=== PATIENT | female | born 1960 | race Caucasian/White ===

== ENCOUNTER → 2017-12-29 12:20 | Outpatient (CLI) | payer OTHER, SELFPAY | LOC: PSN 12:21 | PROVIDERS: Family Provider Family Medicine Geriatric Medicine; PCP Family Medicine Geriatric Medicine; Visit Provider Family Medicine Geriatric Medicine | DX: R68.83 Chills (without fever) (principal) | CPT/HCPCS: 87633 ==

== ENCOUNTER → 2018-01-05 11:34 | Outpatient (CLI) | payer OTHER, SELFPAY ==
[2018-01-05 13:45] LABS: AST(SGOT) 20 U/L (15-37); Alanine Aminotransfer ALT/SGPT 21 U/L (13-56); Alkaline Phosphatase 62 U/L (45-117); Anion Gap 9 (5-15); BUN 12 mg/dL (7-18); BUN/Creat Ratio 13.9 RATIO (10-20); Chloride 99 mmol/L (98-107); Creatinine, Serum 0.87 mg/dL (0.55-1.02); EST Glomerular Filtration Rate 72 mL/min (>60); Est Glom Filt Rate - Afr Amer 87 mL/min (>60); Free T3 2.9 pg/mL (2.18-3.98); Globulin 4.2 g/dL (2.2-4.2); Glucose 85 mg/dL (74-106); Magnesium 2.2 mg/dL (1.6-2.6); Potassium 4.3 mmol/L (3.5-5.1); Protein, Total 8.2 g/dL (6.4-8.2); Sodium Level 134 mmol/L (136-145); T4 Free Direct 1.45 ng/dL (0.76-1.46); Thyroid Stim Hormone (TSH) 0.13 uIU/mL (0.358-3.74)
[2018-01-06 09:44] LABS: Vitamin D,25 Hydroxy 68.1 ng/mL (29.95-100.01)
== END ==
PROVIDERS: Family Provider Family Medicine Geriatric Medicine; PCP Family Medicine Geriatric Medicine; Visit Provider Internal Medicine Endocrinology, Diabetes & Metabolism
DX: E89.0 Postprocedural hypothyroidism (principal); E55.9 Vitamin D deficiency, unspecified; E83.42 Hypomagnesemia
CPT/HCPCS: 36415; 80053; 82306; 83735; 84439; 84443; 84481

== ENCOUNTER → 2018-01-17 12:24 | Outpatient (CLI) | payer OTHER, SELFPAY ==
[2018-01-17 13:49] LABS: Anion Gap 5 (5-15); BUN 14 mg/dL (7-18); BUN/Creat Ratio 15.8 RATIO (10-20); Calcium,Total 9.2 mg/dL (8.5-10.1); Chloride 102 mmol/L (98-107); Creatinine, Serum 0.89 mg/dL (0.55-1.02); EST Glomerular Filtration Rate 70 mL/min (>60); Est Glom Filt Rate - Afr Amer 84 mL/min (>60); Glucose 100 mg/dL (74-106); Sodium Level 135 mmol/L (136-145)
== END ==
PROVIDERS: Family Provider Family Medicine Geriatric Medicine; PCP Family Medicine Geriatric Medicine; Visit Provider Internal Medicine Endocrinology, Diabetes & Metabolism
DX: E89.0 Postprocedural hypothyroidism (principal)
CPT/HCPCS: 36415; 80048

== ENCOUNTER → 2018-06-28 16:25 | Outpatient (CLI) | payer OTHER, SELFPAY ==
[2018-06-28 17:05] LABS: Cholesterol 234 mg/dL (200); High Density Lipoprotein 89 mg/dL; Triglycerides 62 mg/dL; Very Low Density Lipoprotein 12 mg/dL (5-40)
[2018-06-28 17:06] LABS: Absolute Lymphocyte Count 1.99 X10^3/ul (0.83-4.51); Basophil# 0.02 X10^3/uL; Basophil% 0.4 % (0-1); Eosinophil# 0.22 X10^3/uL; Eosinophils% 3.9 % (0-5); Hematocrit 38.6 % (37-47); Hemoglobin 12.8 g/dl (12.0-15.0); Lymphocyte # 1.99 X10^3/ul (4.0); Lymphocyte % 35.4 % (19-41); Mean Corp Hgb Conc 33.2 g/gl (32-36); Mean Corpuscular Hgb 30.2 pg (27.0-32.0); Mean Platelet Vol. 9.2 fl (6.2-12.0); Monocyte# 0.38 X10^3/uL; Monocyte% 6.8 % (0-10); Neutrophil % 53.3 % (47-70); Platelet Count 285 K/mm3 (150-450); RBC Distribution Width CV 12.7 % (11.6-14.6); Red Blood Count 4.24 M/mm3 (4.2-5.4); White Blood Count 5.6 K/mm3 (4.4-11.0)
[2018-06-28 17:07] LABS: POSITIVE COUNT NO; POSITIVE DIFFERENTIAL NO; POSITIVE MORPHOLOGY NO
== END ==
PROVIDERS: Family Provider Family Medicine Geriatric Medicine; PCP Family Medicine Geriatric Medicine; Visit Provider Family Medicine Geriatric Medicine
DX: E55.9 Vitamin D deficiency, unspecified (principal); R53.83 Other fatigue
CPT/HCPCS: 36415; 80061; 85025

== ENCOUNTER → 2020-06-13 | Outpatient (CLI) | payer OTHER, SELFPAY ==
[2020-06-13 11:54] LABS: Absolute Lymphocyte Count 1.68 X10^3/uL (0.83-4.51); Absolute Neutrophil Count 1.9 X10^3/uL (2.0-7.7); Basophil# 0.03 X10^3/uL; Basophil% 0.7 % (0-1); Eosinophil# 0.32 X10^3/uL; Eosinophils% 7.3 % (0-5); Hematocrit 38.8 % (37-47); Hemoglobin 12.9 g/dL (12.0-15.0); Lymphocyte # 1.68 X10^3/ul (4.0); Lymphocyte % 38.3 % (19-41); Mean Corp Hgb Conc 33.2 g/dL (32-36); Mean Corpuscular Hgb 30.6 pg (27.0-32.0); Mean Corpuscular Volume 92.2 fL (81-99); Mean Platelet Vol. 9.2 fl (6.2-12.0); Monocyte# 0.46 X10^3/uL; Monocyte% 10.5 % (0-10); NRBC Flagged by Analyzer 0 % (0-5); Neutrophil # 1.89 X10^3/uL (2.7-7.7); Platelet Count 319 K/mm3 (150-450); RBC Distribution Width CV 12.6 % (11.6-14.6); RBC Distribution Width SD 42.1 fl (35.1-43.9); Red Blood Count 4.21 M/mm3 (4.2-5.4); White Blood Count 4.4 K/mm3 (4.4-11.0)
[2020-06-13 12:28] LABS: Vitamin D,25 Hydroxy 75.3 ng/mL
[2020-06-13 12:35] LABS: AST(SGOT) 16 U/L (15-37); Alanine Aminotransfer ALT/SGPT 16 U/L (13-56); Alkaline Phosphatase 69 U/L (45-117); Anion Gap 5 (5-15); BUN 9 mg/dL (7-18); BUN/Creat Ratio 10.7 RATIO (10-20); Calcium,Total 9.3 mg/dL (8.5-10.1); Chloride 101 mmol/L (98-107); Creatinine, Serum 0.84 mg/dL (0.55-1.02); EST Glomerular Filtration Rate 74 mL/min (>60); Est Glom Filt Rate - Afr Amer 89 mL/min (>60); Globulin 4.2 g/dL (2.2-4.2); Glucose 99 mg/dL (74-106); Potassium 3.9 mmol/L (3.5-5.1); Protein, Total 8.2 g/dL (6.4-8.2); Sodium Level 134 mmol/L (136-145)
== END | disposition home or self-care (01) ==
LOC: POLAB3 11:22
PROVIDERS: PCP Family Medicine Geriatric Medicine; Visit Provider Family Medicine Geriatric Medicine
DX: E55.9 Vitamin D deficiency, unspecified (principal); R53.83 Other fatigue
CPT/HCPCS: 36415; 80053; 82306; 84443; 85025

== ENCOUNTER → 2020-12-12 09:10 | Outpatient (CLI) | payer OTHER, SELFPAY ==
[2020-12-12 13:05] LABS: Absolute Lymphocyte Count 1.54 X10^3/uL (0.83-4.51); Absolute Neutrophil Count 1.8 X10^3/uL (2.0-7.7); Basophil# 0.03 X10^3/uL; Basophil% 0.7 % (0-1); Eosinophil# 0.28 X10^3/uL; Eosinophils% 6.9 % (0-5); Hematocrit 40.2 % (37-47); Hemoglobin 13.6 g/dL (12.0-15.0); Lymphocyte # 1.54 X10^3/ul (4.0); Lymphocyte % 38.1 % (19-41); Mean Corp Hgb Conc 33.8 g/dL (32-36); Mean Corpuscular Hgb 30.8 pg (27.0-32.0); Mean Corpuscular Volume 91.2 fL (81-99); Mean Platelet Vol. 9.4 fl (6.2-12.0); Monocyte# 0.34 X10^3/uL; Monocyte% 8.4 % (0-10); NRBC Flagged by Analyzer 0 % (0-5); Neutrophil # 1.84 X10^3/uL (2.7-7.7); Neutrophil % 45.7 % (47-70); Platelet Count 338 K/mm3 (150-450); RBC Distribution Width CV 13.3 % (11.6-14.6); Red Blood Count 4.41 M/mm3 (4.2-5.4)
[2020-12-12 13:25] LABS: Vitamin D,25 Hydroxy 68.3 ng/mL
[2020-12-12 13:30] LABS: ALB/GLOB Ratio 0.9 RATIO (0.9-2.4); AST(SGOT) 25 U/L (15-37); Alanine Aminotransfer ALT/SGPT 24 U/L (13-56); Albumin, Serum 3.9 g/dL (3.2-5.0); Alkaline Phosphatase 70 U/L (45-117); Anion Gap 7 (5-15); BUN 13 mg/dL (7-18); Calcium,Total 9.1 mg/dL (8.5-10.1); Chloride 102 mmol/L (98-107); Creatinine, Serum 0.93 mg/dL (0.55-1.02); EST Glomerular Filtration Rate 66 mL/min (>60); Est Glom Filt Rate - Afr Amer 79 mL/min (>60); Free T3 2.2 pg/mL (2.18-3.98); Globulin 4.3 g/dL (2.2-4.2); Glucose 98 mg/dL (74-106); Potassium 3.9 mmol/L (3.5-5.1); Protein, Total 8.2 g/dL (6.4-8.2); Sodium Level 134 mmol/L (136-145); T4 Free Direct 1.27 ng/dL (0.76-1.46); Thyroid Stim Hormone (TSH) 0.96 uIU/mL (0.358-3.74)
== END ==
PROVIDERS: PCP Family Medicine Geriatric Medicine; Visit Provider Family Medicine Geriatric Medicine
DX: E89.0 Postprocedural hypothyroidism (principal); E55.9 Vitamin D deficiency, unspecified; R53.83 Other fatigue
CPT/HCPCS: 36415; 80053; 82306; 84439; 84443; 84481; 85025

== ENCOUNTER → 2021-02-23 13:47 | Outpatient (CLI) | payer OTHER, SELFPAY ==
[2021-02-23 16:06] LABS: ALB/GLOB Ratio 0.9 RATIO (0.9-2.4); AST(SGOT) 19 U/L (15-37); Alanine Aminotransfer ALT/SGPT 19 U/L (13-56); Albumin, Serum 3.6 g/dL (3.2-5.0); Alkaline Phosphatase 67 U/L (45-117); Anion Gap 7 (5-15); BUN 11 mg/dL (7-18); BUN/Creat Ratio 12.6 RATIO (10-20); Calcium,Total 8.5 mg/dL (8.5-10.1); Chloride 99 mmol/L (98-107); Creatinine, Serum 0.87 mg/dL (0.55-1.02); EST Glomerular Filtration Rate 70 mL/min (>60); Est Glom Filt Rate - Afr Amer 85 mL/min (>60); Glucose 77 mg/dL (74-106); Potassium 3.9 mmol/L (3.5-5.1); Protein, Total 7.6 g/dL (6.4-8.2); Sodium Level 134 mmol/L (136-145); Thyroid Stim Hormone (TSH) 0.94 uIU/mL (0.358-3.74)
== END ==
PROVIDERS: PCP Family Medicine Geriatric Medicine; Referring Provider Internal Medicine Endocrinology, Diabetes & Metabolism; Visit Provider Internal Medicine Endocrinology, Diabetes & Metabolism
DX: E89.0 Postprocedural hypothyroidism (principal)
CPT/HCPCS: 36415; 80053; 84443

== ENCOUNTER → 2021-06-22 10:54 | Outpatient (CLI) | payer OTHER, SELFPAY ==
[2021-06-22 12:48] LABS: T3 Total - Triiodothyronine 2.09 ng/mL (0.6-1.81); Vitamin D,25 Hydroxy 70.1 ng/mL
[2021-06-22 12:55] LABS: Absolute Lymphocyte Count 1.37 X10^3/uL (0.83-4.51); Basophil# 0.04 X10^3/uL; Eosinophil# 0.31 X10^3/uL; Eosinophils% 7.4 % (0-5); Hematocrit 39.2 % (37-47); Hemoglobin 12.5 g/dL (12.0-15.0); Lymphocyte # 1.37 X10^3/ul (0.83-4.51); Lymphocyte % 32.5 % (19-41); Mean Corp Hgb Conc 31.9 g/dL (32-36); Mean Corpuscular Hgb 29.6 pg (27.0-32.0); Mean Corpuscular Volume 92.7 fL (81-99); Mean Platelet Vol. 9.5 fl (6.2-12.0); Monocyte# 0.45 X10^3/uL; Monocyte% 10.7 % (0-10); NRBC Flagged by Analyzer 0 % (0-5); Neutrophil # 2.03 X10^3/uL (2.7-7.7); Neutrophil % 48.2 % (47-70); Platelet Count 319 K/mm3 (150-450); RBC Distribution Width CV 13.6 % (11.6-14.6); RBC Distribution Width SD 46.5 fl (35.1-43.9); Red Blood Count 4.23 M/mm3 (4.2-5.4); White Blood Count 4.2 K/mm3 (4.4-11.0)
[2021-06-22 13:01] LABS: ALB/GLOB Ratio 0.8 RATIO (0.9-2.4); AST(SGOT) 22 U/L (15-37); Alanine Aminotransfer ALT/SGPT 27 U/L (13-56); Albumin, Serum 3.6 g/dL (3.2-5.0); Alkaline Phosphatase 72 U/L (45-117); Anion Gap 2 (5-15); BUN 15 mg/dL (7-18); BUN/Creat Ratio 18.9 RATIO (10-20); Chloride 106 mmol/L (98-107); Creatinine, Serum 0.79 mg/dL (0.55-1.02); EST Glomerular Filtration Rate 78 mL/min (>60); Est Glom Filt Rate - Afr Amer 95 mL/min (>60); Globulin 4.4 g/dL (2.2-4.2); Glucose 88 mg/dL (74-106); Potassium 4.4 mmol/L (3.5-5.1); Sodium Level 138 mmol/L (136-145); T4 Total, Thyroxin 7.4 ug/dL (4.8-13.9); Thyroid Stim Hormone (TSH) 1.08 uIU/mL (0.358-3.74)
== END ==
PROVIDERS: PCP Family Medicine Geriatric Medicine; Visit Provider Family Medicine Geriatric Medicine
DX: E55.9 Vitamin D deficiency, unspecified (principal); R53.83 Other fatigue
CPT/HCPCS: 36415; 80053; 82306; 84436; 84443; 84480; 85025

== ENCOUNTER 2021-12-22 13:16 | Outpatient (CLI) | payer OTHER, SELFPAY ==
[2021-12-22 16:10] LABS: Absolute Lymphocyte Count 1.71 X10^3/uL (0.83-4.51); Absolute Neutrophil Count 1.9 X10^3/uL (2.0-7.7); Basophil# 0.03 X10^3/uL; Basophil% 0.7 % (0-1); Eosinophil# 0.18 X10^3/uL; Eosinophils% 4.2 % (0-5); Hematocrit 38.9 % (37-47); Hemoglobin 12.8 g/dL (12.0-15.0); Lymphocyte # 1.71 X10^3/ul (0.83-4.51); Mean Corp Hgb Conc 32.9 g/dL (32-36); Mean Corpuscular Volume 91.1 fL (81-99); Mean Platelet Vol. 9.6 fl (6.2-12.0); Monocyte# 0.49 X10^3/uL; Monocyte% 11.5 % (0-10); NRBC Flagged by Analyzer 0 % (0-5); Neutrophil # 1.85 X10^3/uL (2.7-7.7); Neutrophil % 43.4 % (47-70); Platelet Count 339 K/mm3 (150-450); Red Blood Count 4.27 M/mm3 (4.2-5.4); White Blood Count 4.3 K/mm3 (4.4-11.0)
[2021-12-22 16:37] LABS: ALB/GLOB Ratio 0.8 RATIO (0.9-2.4); AST(SGOT) 20 U/L (15-37); Alanine Aminotransfer ALT/SGPT 23 U/L (13-56); Albumin, Serum 3.7 g/dL (3.2-5.0); Alkaline Phosphatase 85 U/L (45-117); Anion Gap 7 (5-15); BUN 8 mg/dL (7-18); BUN/Creat Ratio 9.2 RATIO (10-20); Calcium,Total 9.3 mg/dL (8.5-10.1); Chloride 104 mmol/L (98-107); Creatinine, Serum 0.87 mg/dL (0.55-1.02); EST Glomerular Filtration Rate 70 mL/min (>60); Est Glom Filt Rate - Afr Amer 85 mL/min (>60); Globulin 4.4 g/dL (2.2-4.2); Glucose 86 mg/dL (74-106); Potassium 3.6 mmol/L (3.5-5.1); Protein, Total 8.1 g/dL (6.4-8.2); Sodium Level 137 mmol/L (136-145); Thyroid Stim Hormone (TSH) 1.27 uIU/mL (0.358-3.74)
[2021-12-22 16:44] LABS: Vitamin D,25 Hydroxy 54.2 ng/mL
== END 2021-12-22 23:59 | disposition home or self-care (01) ==
LOC: POLAB3 13:18
PROVIDERS: PCP Family Medicine Geriatric Medicine; Visit Provider Family Medicine Geriatric Medicine
DX: R53.83 Other fatigue (principal); E55.9 Vitamin D deficiency, unspecified
CPT/HCPCS: 36415; 80053; 82306; 84443; 85025

== ENCOUNTER 2022-01-01 10:10 | Outpatient (CLI) | payer OTHER, SELFPAY ==
[2022-01-01 11:21] LABS: ALB/GLOB Ratio 0.8 RATIO (0.9-2.4); AST(SGOT) 17 U/L (15-37); Alanine Aminotransfer ALT/SGPT 18 U/L (13-56); Albumin, Serum 3.5 g/dL (3.2-5.0); Alkaline Phosphatase 79 U/L (45-117); Anion Gap 5 (5-15); BUN 13 mg/dL (7-18); BUN/Creat Ratio 15.2 RATIO (10-20); Chloride 108 mmol/L (98-107); Creatinine, Serum 0.86 mg/dL (0.55-1.02); EST Glomerular Filtration Rate 72 mL/min (>60); Est Glom Filt Rate - Afr Amer 87 mL/min (>60); Free T3 2.3 pg/mL (2.18-3.98); Globulin 4.4 g/dL (2.2-4.2); Glucose 104 mg/dL (74-106); Potassium 3.9 mmol/L (3.5-5.1); Protein, Total 7.9 g/dL (6.4-8.2); Sodium Level 139 mmol/L (136-145); T4 Free Direct 0.74 ng/dL (0.76-1.46); Thyroid Stim Hormone (TSH) 1.49 uIU/mL (0.358-3.74)
[2022-01-04 12:14] LABS: DHEA Sulfate 45.8 ug/dL (29.4-220.5)
== END 2022-01-01 23:59 | disposition home or self-care (01) ==
LOC: LAB 10:14
PROVIDERS: PCP Family Medicine Geriatric Medicine; Visit Provider Internal Medicine Endocrinology, Diabetes & Metabolism
DX: E89.0 Postprocedural hypothyroidism (principal)
CPT/HCPCS: 36415; 80053; 82627; 84439; 84443; 84481; 82626

== ENCOUNTER → 2022-01-19 15:31 | Outpatient (CLI) | payer OTHER, SELFPAY ==
[2022-01-19 17:05] LABS: ALB/GLOB Ratio 0.9 RATIO (0.9-2.4); AST(SGOT) 20 U/L (15-37); Alanine Aminotransfer ALT/SGPT 22 U/L (13-56); Albumin, Serum 3.8 g/dL (3.2-5.0); Alkaline Phosphatase 80 U/L (45-117); Anion Gap 8 (5-15); BUN 7 mg/dL (7-18); BUN/Creat Ratio 7.8 RATIO (10-20); Calcium,Total 9.3 mg/dL (8.5-10.1); Chloride 103 mmol/L (98-107); Creatinine, Serum 0.89 mg/dL (0.55-1.02); EST Glomerular Filtration Rate 68 mL/min (>60); Est Glom Filt Rate - Afr Amer 83 mL/min (>60); Globulin 4.4 g/dL (2.2-4.2); Glucose 86 mg/dL (74-106); Potassium 3.5 mmol/L (3.5-5.1); Protein, Total 8.2 g/dL (6.4-8.2); Sodium Level 137 mmol/L (136-145)
[2022-01-22 14:10] LABS: PROEL- A/G Ratio 1.1 (0.7-1.7); PROEL- Albumin 3.9 g/dL (2.9-4.4); PROEL- Alpha-1 Globulin 0.2 g/dL (0.0-0.4); PROEL- Alpha-2 Globulin 0.7 g/dL (0.4-1.0); PROEL- Beta Globulin 1.2 g/dL (0.7-1.3); PROEL- Gamma Globulin 1.3 g/dL (0.4-1.8); PROEL- Globulin, Total 3.5 g/dL (2.2-3.9); PROEL- TOTAL PROTEIN 7.4 g/dL (6.0-8.5); PROELU- Albumin, Urine 32.9 % (.); PROELU- Alpha-1-Globulin,Ur 1.4 % (.); PROELU- Alpha-2-Globulin,Ur 14.8 % (.); PROELU- Gamma Globulin, Ur 15.9 % (.)
[2022-01-22 15:45] LABS: Total Protein, Ur < 4.0 mg/dL (Not Estab.)
== END ==
PROVIDERS: PCP Family Medicine Geriatric Medicine
DX: E89.0 Postprocedural hypothyroidism (principal); M85.89 Other specified disorders of bone density and structure, multiple sites
CPT/HCPCS: 36415; 80053; 84165; 84166

== ENCOUNTER → 2022-05-19 | Outpatient (CLI) | payer OTHER, SELFPAY ==
[2022-05-19 10:56] LABS: Vitamin D,25 Hydroxy 72.8 ng/mL
[2022-05-19 11:12] LABS: ALB/GLOB Ratio 0.8 RATIO (0.9-2.4); AST(SGOT) 20 U/L (15-37); Alanine Aminotransfer ALT/SGPT 20 U/L (13-56); Albumin, Serum 3.6 g/dL (3.2-5.0); Alkaline Phosphatase 82 U/L (45-117); Anion Gap 7 (5-15); BUN 12 mg/dL (7-18); BUN/Creat Ratio 15.7 RATIO (10-20); Calcium,Total 9.3 mg/dL (8.5-10.1); Chloride 103 mmol/L (98-107); Creatinine, Serum 0.77 mg/dL (0.55-1.02); EST Glomerular Filtration Rate 81 mL/min (>60); Est Glom Filt Rate - Afr Amer 98 mL/min (>60); Free T3 2.8 pg/mL (2.18-3.98); Globulin 4.4 g/dL (2.2-4.2); Glucose 108 mg/dL (74-106); Sodium Level 137 mmol/L (136-145); T4 Free Direct 0.83 ng/dL (0.76-1.46); Thyroid Stim Hormone (TSH) 0.06 uIU/mL (0.358-3.74)
== END | disposition home or self-care (01) ==
LOC: LAB 09:42
PROVIDERS: PCP Family Medicine Geriatric Medicine; Referring Provider Internal Medicine Endocrinology, Diabetes & Metabolism; Visit Provider Internal Medicine Endocrinology, Diabetes & Metabolism
DX: E55.9 Vitamin D deficiency, unspecified (principal); E89.0 Postprocedural hypothyroidism
CPT/HCPCS: 36415; 80053; 82306; 84439; 84443; 84481

== ENCOUNTER → 2022-06-29 | Outpatient (CLI) | payer OTHER, SELFPAY ==
[2022-06-29 16:33] LABS: Absolute Lymphocyte Count 1.74 X10^3/uL (0.83-4.51); Absolute Neutrophil Count 2.9 X10^3/uL (2.0-7.7); Basophil# 0.02 X10^3/uL; Basophil% 0.4 % (0-1); Eosinophil# 0.24 X10^3/uL; Eosinophils% 4.4 % (0-5); Hematocrit 39.8 % (37-47); Hemoglobin 12.7 g/dL (12.0-15.0); Lymphocyte # 1.74 X10^3/ul (0.83-4.51); Lymphocyte % 32.2 % (19-41); Mean Corp Hgb Conc 31.9 g/dL (32-36); Mean Corpuscular Hgb 29.5 pg (27.0-32.0); Mean Corpuscular Volume 92.3 fL (81-99); Mean Platelet Vol. 9.9 fl (6.2-12.0); Monocyte# 0.51 X10^3/uL; Monocyte% 9.4 % (0-10); NRBC Flagged by Analyzer 0 % (0-5); Neutrophil # 2.88 X10^3/uL (2.7-7.7); Neutrophil % 53.4 % (47-70); Platelet Count 362 K/mm3 (150-450); RBC Distribution Width SD 47.9 fl (35.1-43.9); Red Blood Count 4.31 M/mm3 (4.2-5.4); White Blood Count 5.4 K/mm3 (4.4-11.0)
[2022-06-29 17:03] LABS: ALB/GLOB Ratio 0.9 RATIO (0.9-2.4); AST(SGOT) 22 U/L (15-37); Alanine Aminotransfer ALT/SGPT 25 U/L (13-56); Albumin, Serum 3.7 g/dL (3.2-5.0); Alkaline Phosphatase 82 U/L (45-117); Anion Gap 8 (5-15); BUN 8 mg/dL (7-18); Calcium,Total 8.9 mg/dL (8.5-10.1); Chloride 102 mmol/L (98-107); Creatinine, Serum 0.89 mg/dL (0.55-1.02); EST Glomerular Filtration Rate 69 mL/min (>60); Est Glom Filt Rate - Afr Amer 83 mL/min (>60); Globulin 4.3 g/dL (2.2-4.2); Glucose 94 mg/dL (74-106); Sodium Level 135 mmol/L (136-145)
== END | disposition home or self-care (01) ==
LOC: POLAB3 12:47
PROVIDERS: PCP Family Medicine Geriatric Medicine; Visit Provider Family Medicine Geriatric Medicine
DX: R53.83 Other fatigue (principal); E55.9 Vitamin D deficiency, unspecified
CPT/HCPCS: 36415; 80053; 82306; 84443; 85025

== ENCOUNTER → 2022-08-06 | Outpatient (CLI) | payer OTHER, SELFPAY ==
[2022-08-06 12:09] LABS: Vitamin B12 358 pg/mL (211-911)
[2022-08-06 12:17] LABS: Free T3 2.5 pg/mL (2.18-3.98); T4 Free Direct 0.72 ng/dL (0.76-1.46)
== END | disposition home or self-care (01) ==
LOC: LAB 10:52
PROVIDERS: Physician Assistant; PCP Family Medicine Geriatric Medicine; Visit Provider Internal Medicine Endocrinology, Diabetes & Metabolism
DX: E89.0 Postprocedural hypothyroidism (principal); D51.3 Other dietary vitamin B12 deficiency anemia
CPT/HCPCS: 36415; 82607; 84439; 84443; 84481

== ENCOUNTER → 2022-11-26 | Outpatient (CLI) | payer OTHER, SELFPAY ==
[2022-11-26 11:41] LABS: ALB/GLOB Ratio 0.8 RATIO (0.9-2.4); AST(SGOT) 20 U/L (15-37); Alanine Aminotransfer ALT/SGPT 21 U/L (13-56); Albumin, Serum 3.5 g/dL (3.2-5.0); Alkaline Phosphatase 86 U/L (45-117); Anion Gap 7 (5-15); BUN 17 mg/dL (7-18); BUN/Creat Ratio 20.3 RATIO (10-20); Chloride 106 mmol/L (98-107); Creatinine, Serum 0.84 mg/dL (0.55-1.02); EST Glomerular Filtration Rate 73 mL/min (>60); Est Glom Filt Rate - Afr Amer 89 mL/min (>60); Free T3 2.6 pg/mL (2.18-3.98); Globulin 4.4 g/dL (2.2-4.2); Glucose 100 mg/dL (74-106); Magnesium 2.4 mg/dL (1.6-2.6); Potassium 4.2 mmol/L (3.5-5.1); Protein, Total 7.9 g/dL (6.4-8.2); Sodium Level 139 mmol/L (136-145); T4 Free Direct 0.72 ng/dL (0.76-1.46); Thyroid Stim Hormone (TSH) 0.16 uIU/mL (0.358-3.74)
== END | disposition home or self-care (01) ==
LOC: LAB 09:21
PROVIDERS: PCP Family Medicine Geriatric Medicine; Referring Provider Internal Medicine Endocrinology, Diabetes & Metabolism; Visit Provider Internal Medicine Endocrinology, Diabetes & Metabolism
DX: E89.0 Postprocedural hypothyroidism (principal); E83.42 Hypomagnesemia
CPT/HCPCS: 36415; 80053; 83735; 84439; 84443; 84481

== ENCOUNTER → 2022-12-28 | Outpatient (CLI) | payer OTHER, SELFPAY ==
[2022-12-28 17:30] LABS: Absolute Lymphocyte Count 2.08 X10^3/uL (0.83-4.51); Absolute Neutrophil Count 3.3 X10^3/uL (2.0-7.7); Basophil# 0.04 X10^3/uL; Basophil% 0.6 % (0-1); Eosinophil# 0.26 X10^3/uL; Eosinophils% 4.1 % (0-5); Hemoglobin 12.7 g/dL (12.0-15.0); Lymphocyte # 2.08 X10^3/ul (0.83-4.51); Lymphocyte % 33.2 % (19-41); Mean Corp Hgb Conc 32.6 g/dL (32-36); Mean Corpuscular Hgb 29.7 pg (27.0-32.0); Mean Corpuscular Volume 91.3 fL (81-99); Monocyte# 0.57 X10^3/uL; Monocyte% 9.1 % (0-10); NRBC Flagged by Analyzer 0 % (0-5); Neutrophil % 52.7 % (47-70); Platelet Count 344 K/mm3 (150-450); RBC Distribution Width CV 13.7 % (11.6-14.6); RBC Distribution Width SD 46.2 fl (35.1-43.9); Red Blood Count 4.27 M/mm3 (4.2-5.4); White Blood Count 6.3 K/mm3 (4.4-11.0)
[2022-12-28 17:50] LABS: Vitamin D,25 Hydroxy 63.2 ng/mL
[2022-12-28 17:59] LABS: ALB/GLOB Ratio 0.9 RATIO (0.9-2.4); AST(SGOT) 21 U/L (15-37); Alanine Aminotransfer ALT/SGPT 25 U/L (13-56); Albumin, Serum 3.8 g/dL (3.2-5.0); Alkaline Phosphatase 88 U/L (45-117); Anion Gap 9 (5-15); BUN 12 mg/dL (7-18); BUN/Creat Ratio 12.5 RATIO (10-20); Calcium,Total 9.4 mg/dL (8.5-10.1); Chloride 102 mmol/L (98-107); Creatinine, Serum 0.96 mg/dL (0.55-1.02); EST Glomerular Filtration Rate 63 mL/min (>60); Est Glom Filt Rate - Afr Amer 76 mL/min (>60); Globulin 4.3 g/dL (2.2-4.2); Glucose 82 mg/dL (74-106); Potassium 3.6 mmol/L (3.5-5.1); Protein, Total 8.1 g/dL (6.4-8.2); Sodium Level 136 mmol/L (136-145); Thyroid Stim Hormone (TSH) 0.29 uIU/mL (0.358-3.74)
== END | disposition home or self-care (01) ==
LOC: POLAB3 13:42
PROVIDERS: PCP Family Medicine Geriatric Medicine; Visit Provider Family Medicine Geriatric Medicine
DX: E55.9 Vitamin D deficiency, unspecified (principal); R53.83 Other fatigue
CPT/HCPCS: 36415; 80053; 82306; 84443; 85025

== ENCOUNTER → 2023-07-07 | Outpatient (CLI) | payer OTHER, SELFPAY ==
[2023-07-07 15:17] LABS: Absolute Lymphocyte Count 1.76 X10^3/uL (0.83-4.51); Basophil# 0.03 X10^3/uL; Basophil% 0.7 % (0-1); Eosinophil# 0.19 X10^3/uL; Eosinophils% 4.2 % (0-5); Hematocrit 39.5 % (37-47); Hemoglobin 12.5 g/dL (12.0-15.0); Lymphocyte # 1.76 X10^3/ul (0.83-4.51); Lymphocyte % 39.2 % (19-41); Mean Corp Hgb Conc 31.6 g/dL (32-36); Mean Corpuscular Hgb 28.9 pg (27.0-32.0); Mean Corpuscular Volume 91.4 fL (81-99); Mean Platelet Vol. 9.8 fl (6.2-12.0); Monocyte# 0.47 X10^3/uL; Monocyte% 10.5 % (0-10); NRBC Flagged by Analyzer 0 % (0-5); Neutrophil # 2.03 X10^3/uL (2.7-7.7); Neutrophil % 45.2 % (47-70); Platelet Count 335 K/mm3 (150-450); RBC Distribution Width CV 13.7 % (11.6-14.6); RBC Distribution Width SD 46.5 fl (35.1-43.9); Red Blood Count 4.32 M/mm3 (4.2-5.4); White Blood Count 4.5 K/mm3 (4.4-11.0)
[2023-07-07 15:37] LABS: ALB/GLOB Ratio 0.8 RATIO (0.9-2.4); AST(SGOT) 17 U/L (15-37); Alanine Aminotransfer ALT/SGPT 21 U/L (13-56); Albumin, Serum 3.6 g/dL (3.2-5.0); Alkaline Phosphatase 72 U/L (45-117); Anion Gap 6 (5-15); BUN 10 mg/dL (7-18); BUN/Creat Ratio 11.5 RATIO (10-20); Calcium,Total 9.2 mg/dL (8.5-10.1); Chloride 104 mmol/L (98-107); Creatinine, Serum 0.87 mg/dL (0.55-1.02); EST Glomerular Filtration Rate 70 mL/min (>60); Est Glom Filt Rate - Afr Amer 85 mL/min (>60); Globulin 4.3 g/dL (2.2-4.2); Glucose 85 mg/dL (74-106); Potassium 3.9 mmol/L (3.5-5.1); Protein, Total 7.9 g/dL (6.4-8.2); Sodium Level 136 mmol/L (136-145); Thyroid Stim Hormone (TSH) 0.17 uIU/mL (0.358-3.74)
== END | disposition home or self-care (01) ==
LOC: POLAB3 09:38
PROVIDERS: PCP Family Medicine Geriatric Medicine; Visit Provider Family Medicine Geriatric Medicine
DX: R53.83 Other fatigue (principal)
CPT/HCPCS: 36415; 80053; 84443; 85025

== ENCOUNTER → 2023-07-13 | Outpatient (CLI) | payer OTHER, SELFPAY ==
[2023-07-13 11:46] LABS: ALB/GLOB Ratio 0.8 RATIO (0.9-2.4); AST(SGOT) 19 U/L (15-37); Alanine Aminotransfer ALT/SGPT 23 U/L (13-56); Albumin, Serum 3.5 g/dL (3.2-5.0); Alkaline Phosphatase 81 U/L (45-117); Anion Gap 4 (5-15); BUN 10 mg/dL (7-18); BUN/Creat Ratio 11.3 RATIO (10-20); Calcium,Total 9.1 mg/dL (8.5-10.1); Chloride 104 mmol/L (98-107); Creatinine, Serum 0.89 mg/dL (0.55-1.02); EST Glomerular Filtration Rate 69 mL/min (>60); Est Glom Filt Rate - Afr Amer 83 mL/min (>60); Free T3 2.5 pg/mL (2.18-3.98); Globulin 4.5 g/dL (2.2-4.2); Glucose 98 mg/dL (74-106); Sodium Level 136 mmol/L (136-145); T4 Free Direct 0.75 ng/dL (0.76-1.46); Thyroid Stim Hormone (TSH) 0.26 uIU/mL (0.358-3.74)
== END | disposition home or self-care (01) ==
LOC: LAB 10:10
PROVIDERS: PCP Family Medicine Geriatric Medicine; Referring Provider Internal Medicine Endocrinology, Diabetes & Metabolism; Visit Provider Internal Medicine Endocrinology, Diabetes & Metabolism
DX: E89.0 Postprocedural hypothyroidism (principal); E04.2 Nontoxic multinodular goiter; E55.9 Vitamin D deficiency, unspecified
CPT/HCPCS: 36415; 80053; 82306; 84439; 84443; 84481

== ENCOUNTER → 2023-11-04 | Outpatient (CLI) | payer OTHER, SELFPAY ==
--- OUTSIDE RECORDS SUMMARY | 2023-11-04 12:23 | XMS RPT_ITS | CCD ---
Author Name Unknown Address [address] [place] [address] Organization [facility] Care Team Providers Care Paintings Conservator Name Role Phone DOMITILA MERINO Attending Unavailable LUC BROWNING Referring Unavailable RADHA DURBIN (RD) Attending Unavailable MILLA VALDES (EX PHYS) Attending UnavailDOMITILA Villanueva Referring Unavailable ANGELITO MARCOS (RD) Attending Unavailable DAQUAN CABRERA (PA) Attending Unavailable DAQUAN CABRERA (PA) Referring Unavailable Aviva Katz MD Unavailable Jermaine ROWLAND, Juliette Unavailable Unavailable Michael POLANCO, Melissa Acosta Unavailable [phone] Pradip DELAROSA, [facility] Primary Care Provider [phone] Jay PhD, Trang Childers Unavailable Aviva Katz MD Unavailable Jermaine ROWLAND, Juliette Unavailable Unavailable Michael POLANCO, Melissa Acosta Unavailable [phone] Pradip [facility], [facility] Primary Care Provider Jay PhD, Trang Childers Unavailable Aviva Katz MD Unavailable Michael POLANCO, Melissa Acosta Unavailable Pradip DELAROSA, [facility] Primary Care Provider [phone] Jay PhD, Trang Childers Unavailable FARIHA DON Attending Unavailable [facility], [facility] Primary Care Unavailable ROBERT MENDEZ Referring Unavailable KVNG RAYMOND Referring Unavailable YAZMIN ORDAZ Attending Unavailable [facility], [facility] Primary Care Unavailable KVNG RAYMOND Referring Unavailable TINO BOND Attending Unavailable [facility], [facility] Primary Care Unavailable KVNG RAYMOND Referring Unavailable [facility], [facility] Primary Care Unavailable YAZMIN ORDAZ Attending Unavailable [facility], [facility] Primary Care Unavailable ROBERT MENDEZ Attending Unavailable ROBERT MENDEZ L Referring Unavailable [facility], [facility] Primary Care Unavailable ROBERT MENDEZ Attending Unavailable ROBERT MENDEZ Referring Unavailable [facility]AD[facility], [facility] Primary Care Unavailable [facility], [facility] Primary Care Unavailable AISHA RAYMONDI L Referring Unavailable YAZMIN ORDAZ Attending Unavailable [facility], [facility] Primary Care Unavailable ROBERT MENDEZ Referring Unavailable FARIHA DON Attending Unavailable [facility], [facility] Primary Care Unavailable Allergies Allergy Classification Reported Allergen(s) Allergy Type Date of Onset Reaction(s) Facility (1 source) Bee; Translations: [BEES] Propensity to adverse reactions (disorder) 6 [facility] Repository (1 source) Sulfonamides (Antibiotic); Translations: [SULFA (SULFONAMIDE ANTIBIOTICS)] Propensity to adverse reactions to drug (disorder) 1 [facility] Repository (5 sources) Sulfonamides (Antibiotic) Propensity to adverse reactions to drug 2 Hives, Rash, Nausea Only [facility] (8 sources) Nutritional Supplements Propensity to adverse reactions to drug 2 Swelling [facility] (3 sources) Sulfonamides (Antibiotic) Propensity to adverse reactions to drug 2 Hives, Rash, Nausea Only [facility] Medications Current Medications Medication Drug Class(es) Dates Sig (Normalized) Sig (Original) B Complex Vitamins (VITAMIN B COMPLEX PO) (3 sources) B Complex Vitamins (VITAMIN B COMPLEX PO) Take by mouth As directed. 0 Active DULoxetine 30 mg delayed release oral capsule (10 sources) Serotonin and Norepinephrine Reuptake Inhibitor Start: 07-06-2023 End: 10-05-2023 take 1 capsule by mouth once daily DULoxetine (Cymbalta) [address] Particles capsule DR Indications: Chemotherapy-ind uced peripheral neuropathy Take 1 capsule by mouth daily. 30 capsule 5 10/05/2023 Active Completed/Discontinued Medications Medication Drug Class(es) Dates Sig (Normalized) Sig (Original) melatonin 3 mg oral tablet (2 sources) End: 10-06-2022 take 1 tablet by mouth at bedtime as needed melatonin 3 MG Tab tablet Take 3 mg by mouth at bedtime as needed. 0 10/06/2022 Discontinued (Therapy completed) Problems Active Problems Problem Classification Problem Date Documented Da te Episodic/Chronic Anxiety disorders (8 sources) Anxiety disorder; Translations: [Anxiety disorder, unspecified] Onset: 07-16-2015 07-16-2015 Chronic Cancer of breast (15 sources) History of malignant neoplasm of breast; Translations: [Personal history of malignant neoplasm of breast] Onset: 12-20-2012 08-03-2016 Episodic Malaise and fatigue (6 sources) Other fatigue; Translations: [Fatigue] Onset: 11-08-2018 Episodic Nutritional deficiencies (8 sources) Vitamin D deficiency; Translations: [Vitamin D deficiency, unspecified] Onset: 03-08-2013 03-08-2013 Chronic Other hereditary and degenerative nervous system conditions (1 source) Mild cognitive impairment, so stated; Translations: [Mild cognitive impairment, so stated] Onset: 08-02-2015 Chronic Other nervous system disorders (3 sources) Drug-induced polyneuropathy; Translations: [Drug-induced polyneuropathy] Onset: 08-27-2016 Chronic Other nervous system disorders (11 sources) Peripheral neuropathy due to and following chemotherapy; Translations: [Drug-induced polyneuropathy] Onset: 08-27-2016 Chronic Other nervous system disorders (10 sources) Chronic brain syndrome; Translations: [Other encephalopathy] Onset: 08-29-2017 Chronic Other nervous system disorders (2 sources) Other encephalopathy; Translations: [Other encephalopathy] Onset: 09-29-2017 Chronic Other nutritional; endocrine; and metabolic disorders (1 source) Homocystinuria; 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] Onset: 01-08-2019 Chronic Other screening for suspected conditions (not mental disorders or infectious disease) (15 sources) Suspected malignancy; Translations: [Encounter for observation for other suspected diseases and conditions ruled out] Onset: 06-22-2013 06-22-2013 Episodic Residual codes; unclassified (1 source) Other amnesia; Translations: [Other amnesia] Onset: 01-08-2019 Episodic Residual codes; unclassified (3 sources) History of left mastectomy; Translations: [Acquired absence of left breast and nipple] Episodic Residual codes; unclassified (2 sources) Acquired absence of left breast and nipple; Translations: [Acquired absence of left breast and nipple] Onset: 10-12-2023 Episodic Thyroid disorders (9 sources) Hypothyroidism, unspecified; Translations: [Hypothyroidism] Onset: 03-08-2013 03-08-2013 Chronic Unclassified (1 source) Reserved for concepts with insufficient information to code with codable children; Translations: [Reserved for concepts with insufficient information to code with codable children] Onset: 02-06-2014 Past or Other Problems Problem Classification Problem Date Documented Date Episodic/Chronic Administrative/socia l admission (8 sources) Advance directive discussed with patient; Translations: [Other specified counseling] Onset: 03-05-2015 03-05-2015 Episodic Benign neoplasm of uterus (8 sources) Uterine leiomyoma; Translations: [Leiomyoma of uterus, unspecified] Onset: 01-26-2013 01-26-2013 Episodic Cancer of breast (17 sources) Malignant neoplasm of unspecified site of unspecified female breast; Translations: [Malignant tumor of breast ] Onset: 11-03-2011 Resolved: 08-26-2013 08-26-2013 Chronic E Codes: Adverse effects of medical drugs (2 sources) Adverse effect of antineoplastic and immunosuppressive drugs, initial encounter; Translations: [Adverse effect of antineoplastic and immunosuppressive drugs, initial encounter] Onset: 08-27-2016 Episodic Maintenance chemotherapy; radiotherapy (8 sources) Patient encounter status; Translations: [Encounter for antineoplastic chemotherapy] Onset: 08-11-2012 Resolved: 08-26-2013 08-26-2013 Chronic Mood disorders (7 sources) Mood disorders Onset: 04-07-2022 Resolved: 10-12-2023 04-07-2022 Other and unspecified benign neoplasm (8 sources) History of polyp of colon; Translations: [Personal history of colonic polyps] Onset: 06-16-2020 06-16-2020 Episodic Other nervous system disorders (8 sources) Other symptoms and signs involving cognitive functions and awareness; Translations: [Other signs and symptoms involving cognition] Onset: 08-08-2013 08-08-2013 Episodic Other nervous system disorders (8 sources) Toxic encephalopathy; Translations: [Toxic encephalopathy] Onset: 08-01-2017 09-25-2017 Episodic Sprains and strains (8 sources) Strain of muscle of chest wall; Translations: [Strain of muscle and tendon of front wall of thorax, initial encounter] Onset: 07-21-2017 07-21-2017 Episodic Unclassified (1 source) Onset: 10-06-2022 10-06-2022 Results Test Name Value Interpretation Reference Range Facil ity Vital Signs Date Time Vital Sign Value Performing Clinician Marianai lity 10-12-2023 15:45-0500 Body mass index (BMI) [Ratio] 24.84 kg/m2 Robert Mendez BOILING TUB OPERATOR-TIMBER REPAIRER Work Phone: [facility] 10-12-2023 15:45-0500 Body temperature 97.9 [degF] Robert Mendez BOILING TUB OPERATOR-TIMBER REPAIRER Work Phone: [facility] 10-12-2023 15:45-0500 Body weight 66.68 kg Robert Mendez BOILING TUB OPERATOR-TIMBER REPAIRER Work Phone: [facility] 10-12-2023 15:45-0500 Diastolic blood pressure 90 mm[Hg] Robert Mendez BOILING TUB OPERATOR-TIMBER REPAIRER Work Phone: [facility] 10-12-2023 15:45-0500 Heart rate 87 /min Robert Mendez APRN-TIMBER REPAIRER Work Phone: [facility] 10-12-2023 15:45-0500 Systolic blood pressure 127 mm[Hg] Robert Mendez BOILING TUB OPERATOR-TIMBER REPAIRER Work Phone: [facility] 10-05-2023 12:08-0500 Body mass index (BMI) [Ratio] 25.42 kg/m2 Yazmin Ordaz MD Work Phone: [facility] 10-05-2023 12:08-0500 Body weight 68.22 kg Yazmin Ordaz MD Work Phone: [facility] 10-05-2023 12:08-0500 Diastolic blood pressure 67 mm[Hg] Yazmin Ordaz MD Work Phone: [facility] 10-05-2023 12:08-0500 Heart rate 104 /min Yazmin Ordaz MD Work Phone: [facility] 10-05-2023 12:08-0500 Respiratory rate 98 /min Yazmin Ordaz MD Work Phone: [facility] 10-05-2023 12:08-0500 Systolic blood pressure 133 mm[Hg] Yazmin Ordaz MD Work Phone: [facility] 02-22-2023 11:08-0400 Body temperature 98.2 [degF] Fariha Dno LG Work Phone: [facility] 02-22-2023 11:08-0400 Diastolic blood pressure 73 mm[Hg] Fariha Don LGC Work Phone: [facility] 02-22-2023 11:08-0400 Heart rate 81 /min Fariha Don LGC Work Phone: [facility] 02-22-2023 11:08-0400 Respiratory rate 15 /min Fariha Don LGC Work Phone: [facility] 02-22-2023 11:08-0400 SaO2% (BldA) [Mass fraction] 98 % Fariha Don LGC Work Phone: [facility] 02-22-2023 11:08-0400 Systolic blood pressure 124 mm[Hg] Fariha Don LGC Work Phone: [facility] 12-08-2022 11:15-0500 Body temperature 97.81 [degF] Yazmin Ordaz MD Work Phone: [facility] 12-08-2022 11:15-0500 Diastolic blood pressure 64 mm[Hg] Yazmin Ordaz MD Work Phone: [facility] 12-08-2022 11:15-0500 Heart rate 96 /min Yazmin Ordaz MD Work Phone: [facility] 12-08-2022 11:15-0500 Respiratory rate 16 /min Yazmin Ordaz MD Work Phone: [facility] 12-08-2022 11:15-0500 SaO2% (BldA) [Mass fraction] 100 % Yazmin Ordaz MD Work Phone: [facility] 12-08-2022 11:15-0500 Systolic blood pressure 141 mm[Hg] Yazmin Ordaz MD Work Phone: [facility] 06-24-2021 12:23-0400 Body temperature 97.81 [degF] Yazmin Ordaz MD Work Phone: [facility] 06-24-2021 12:23-0400 Diastolic blood pressure 82 mm[Hg] Yazmin Ordaz MD Work Phone: [facility] 06-24-2021 12:23-0400 Heart rate 78 /min Yazmin Ordaz MD Work Phone: [facility] 06-24-2021 12:23-0400 Respiratory rate 16 /min Yazmin Ordaz MD Work Phone: [facility] 06-24-2021 12:23-0400 SaO2% (BldA) [Mass fraction] 100 % Yazmin Ordaz MD Work Phone: [facility] 06-24-2021 12:23-0400 Systolic blood pressure 131 mm[Hg] Yazmin Ordaz MD Work Phone: [facility] Encounters Encounter Date Encounter Type Care Provider Facility Start: 10-12-2023 ambulatory [facility] Facility:[facility] Start: 10-12-2023 End: 10-13-2023 Office outpatient visit 15 minutes Robert Mendez APRN-TIMBER REPAIRER Work Phone: Division of Surgical Oncology Procedures Date Procedure Procedure Detail Performing Clinician Start: 10-12-2023 Screening mammograph y bi 2-view breast inc cad Robert Liseth Mendez BOILING TUB OPERATOR-TIMBER REPAIRER Work Phone: Start: 10-06-2022 Screening mammograph y bi 2-view breast inc cad Reina Washburn Abraham BOILING TUB OPERATOR-TIMBER REPAIRER Work Phone: Start: 07-18-2020 Colonoscopy Yazmin chaidez MD Work Phone: Start: 06-09-2020 Echocardiography Start: 02-12-2014 Microscopic observat ion [Identifier] in Cervix by Cyto stain Yazmin Ordaz MD Work Phone: Plan of Treatment Date Care Activity Detail Author Start: 07-18-2025 Colonoscopy COLONOSCOPY [facility] Start: 07-18-2025 Screening for malignant neoplasm of colon COLONOSCOPY [facility] Start: 10-17-2024 End: 10-17-2024 Patient encounter procedure [facility] Start: 10-12-2024 End: 11-12-2024 MG Breast - right Screening MAMMO SCREENING WITH CHEPE RIGHT Imaging Routine Personal history of breast cancer S/P left mastectomy Encounter for screening mammogram for malignant neoplasm of breast Expected: 10/12/2024 (Approximate), Expires: 11/12/2024 [facility] Immunizations Immunization Date Immunization Notes Care Provider Fa [facility] 08-18-2017 influenza, injectabl e, quadrivalent, contains preservative Yazmin Ordaz MD Work Phone: [facility] 08-18-2017 influenza virus vaccine, unspecified formulation Yazmin Ordaz MD Work Phone: [facility] Payers Date Payer Category Payer Unknown [employer] [place] [id number] 1996-Present [address] [place] [address] [id number] 1996 Unknown [employer] [id number] 1996-Present [address] [place] [address] [id number] 1996 Unknown [id number] 1960 Unknown [id number] 1960 Unknown [id number] 1960 Unknown [id number] 1960 Unknown [id number] 1960 Unknown [id number] 1960 Unknown [id number] 1960 Unknown [id number] 1960 Unknown [id number] 1960 Unknown [id number] 1960 Unknown [id number] Social History Date Type Detail Facility Start: 07-14-2015 End: 10-05-2023 Tobacco smoking status NHIS Former smoker [facility] History of tobacco use Cigarette Smoker O [facility] Start: 07-14-2015 End: 10-05-2023 Tobacco use and exposure Never used [facility] Start: 04-14-2021 End: 10-12-2023 Alcohol intake Current drinker of alcohol (finding) [facility] Start: 04-14-2021 End: 10-12-2023 Alcohol intake [facility] Start: 09-27-2020 History SDOH Financial 4 [facility] Start: 09-27-2020 End: 09-28-2021 History SDOH Food Worry 1 [facility] Start: 09-27-2020 End: 09-28-2021 History SDOH Transport Med 2 [facility] Start: 07-14-2015 End: 10-05-2023 Tobacco Comment quit teen years [facility] Start: 09-22-2020 Alcohol Comment Usually one drink a day [facility] Start: 1960 Sex Assigned At Not on file O [facility] Exposure to SARS-CoV -2 (event) Not sure [facility] History of tobacco use Current smoker [facility] Start: 09-28-2021 History SDOH Financial 5 [facility] Start: 09-26-2022 End: 12-08-2022 Exposure to SARS-CoV-2 (event) Unable to assess [facility] Start: 10-05-2023 End: 10-12-2023 Tobacco use panel [facility] How hard is it for y ou to pay for the very basics like food, housing, medical care, and heating Not hard at all [facility] (I/We) worried luz er (my/our) food would run out before (I/we) got money to buy more. Never true [facility] Gender identity Identifies as fe male gender (finding) [facility] In the past 12 month s, was there a time when you were not able to pay the mortgage or rent on time? No [facility] Goals Date Patient Goal Desired Activity /State Personal health goal Clinical Notes 06-24-2021 to 10-12-2023 Terrie Delgado RN - 10/12/2023 4:00 PM BRII Chadwick - 10/12/2023 4:00 PM Henrique Seaman - 10/12/2023 3:00 PM Armando Ordaz MD - 10/05/2023 12:30 PM ESTPatient Instructions Note Date & Type Note Facility 10-12-2023 History of Presen t illness Narrative Milla Piper was offered and declined a Medical Volunteer Specialist for this exam/procedure/test 10/12/2023. [id number] Milla Piper 10/18/2023 REFERRING/PRIMARY PROVIDER(S) Primary Care Provider: Yari Simmons Surgical oncology: [facility] oncology: [facility] History of Present Illness: Milla Piper is a 63 y.o. White female established patient who presents to the [facility] [place] today for routine follow up. I have reviewed her pertinent PMH, PSH, ALL, SH, meds and FH and have updated the visit note as below. Chief Complaint Patient presents with Follow-up Pts states that she has tightness to left axillary area. Pt states that she has not been doing PT exercises that were recommended as frequently; rt chest, just above port incision w/some fullness and thickness. 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 There is no FH of breast cancer or ovarian cancer. In 09/2011, the patient palpated a lump in her left breast, at which point she was told to get a mammogram quickly. She underwent mammography and ultrasound guided biopsy (of breast and axillary lesions) on 10/19/11. Left breast ultrasound to the left upper outer quadrant showed a 2.8 x 2.3 x 2.0 cm ultrasound lesion in the 1:00 axis of the left breast. Left axillary ultrasound showed a ultrasound mass in the left axilla measuring 2.9 x 2.7 x 2.7 cm in size, consistent with an enlarged lymph node. Her left breast imaging was classified as BI-RADS category 4. Nothing significant was noted the contralateral right breast. Subsequently she had US guided LN and breast mass biopsies, pathology revealed poorly differentiated invasive ductal carcinoma in the breast and in the lymph node that was 2% ER positive, W[place] negative, and negative for HER-2/dhara per outside pathology. She began neoadjuvant treatment on [facility] [address]55 (gamma secretase inhibitor + Taxol/Carbo) on 11/09/11. On 05/22/2012, the patient underwent a left modified radical mastectomy. Final pathology report showed complete pathologic response. The final pathology from 05/22/2012 showed: (1) The left breast specimen contained no evidence of residual carcinoma or any evidence of DCIS. Only mammary tissue with stromal fibroelastosis and chronic inflammatory infiltrate, including histiocytes cells, was seen, which was thought to represent the bed of the previous left breast cancer, which was no longer histologically present at this time. It appeared that the patient had 100%/complete pathologic response within the left breast tissue.; (2) A total of 11 lymph nodes were identified within the left axillary content, and all of which were negative for malignancy. It appeared that the patient had 100% complete pathologic response within the left axillary tissue. Breast reconstruction: Yes On 11/03/2011, he patient elected to have no immediate initiation of reconstruction to her left side. Instead, the patient felt that she would consider later delayed reconstruction to her left side. Neoadjuvant Chemotherapy: Yes The patient received preoperative neoadjuvant induction [place] [address] (gamma secretase inhibitor + Taxol/Carbo) per Dr. Елена Gomes of [facility] breast medical oncology, with 6 cycles. Radiation Therapy: Yes She was enrolled in ID 32 clinical trial on 11/27/12. She completed 25 fractions of radiation to the left chest wall and axilla in December 2012. Adjuvant Chemotherapy: Yes 4 cycles of Adriamycin and Cytoxan post surgical Adjuvant Hormonal Therapy: No Oncologic Hx: Her history dates back to July 2011, when the patient discovered a left axillary mass that was evaluated by her PCP. A. Breast, left, mastectomy: - Mammary tissue with tumor bed characterized by stromal fibroelastosis with chronic inflammatory infiltrates including histiocytic cells - Benign skin and nipple - No residual malignancy identified B. Axillary tissue, left, excision: - No metastatic carcinoma present in 11 identified lymph nodes - Tumor bed characterized by stromal fibroelastosis with chronic histiocytic infiltrates is identified Note: This is consistent with complete response to neoadjuvant chemotherapy in breast and axilla. AE1/3 (block A4, B1, B6) and CK7 appropriately highlight epithelial cells. History of cardiotoxic chemotherapy: Yes Most recent echocardiogram: 09/07/18 At that time she had c/o of right breast swelling and pain, which was marked for imaging at 12:00 5cmfn. She had a right diagnostic mammogram and a right breast US which demonstrated a probably benign hypoechoic mass in the 12:00 position, zone 2. Her imaging was Bi-RADS 3 and 6 month follow up with a repeat US was recommended. 03/15/19 6 month follow up of her Bi-RADS 3 imaging of the right breast, with a right breast US. At that time she denied any new breast concerns. Her imaging demonstrated stability of the probably benign right breast mass at 12:00. Bi-RADS 3 with recommendation for 6 month follow up. 09/11/2019 6 month follow up of her Bi-RADS 3 imaging of the right breast, with a right breast US which were BI-RADS 3 and 12 month follow-up was recommended . She has had left axillary pain and left chest wall pain and cramping, which is chronic and flares up. She has recently been seeing PT here, which has helped with her pain. 09/15/2020 6 month follow up with annual mammogram and right breast ultrasound for BI-RADS 3 imaging follow-up. This demonstrated stability of the probably benign finding in the right breast, which has been stable for 2 years. This imaging was Bi-RADS 2 and she was recommended to return to annual screening mammogram. She was referred to physical therapy again for stretching of her left mastectomy site. 09/28/21 +Right breast itchiness since this summer, 2020 - uses body lotion daily. She has not used medicated lotion at all. +Right wrist from overuse over the summer 2020 and was diagnosed with tendonitis - this has caused her to use her left arm more and has contributed to increased lymphedema in the left armpit area. +She does report some weight gain, but thinks it is d/t switching around her thyroid medications. +she does report having balancing issues which has caused her to fall a few times - this is not new overall. 10/12/23 +chronic discomfort along her central lateral aspect of her left modified radical mastectomy site and her left axillary region and left lateral chest wall region. Offered PT referral - declined. 10/06/22 interval update +chronic discomfort along her central lateral aspect of her left modified radical mastectomy site and her left axillary region and her left lateral chest wall region - stable, no current arm swelling, edema, redness, but she is now interested in seeing PT She denies any lumps, nipple discharge, or skin changes. She reports checking her breasts occasionally. The patient denies feeling any new palpable masses within her right breast or within her left modified radical mastectomy site. She denies un-intentional weight loss, bone pain, vision changes, new onset headaches or changes in headaches, chest pain, shortness of breath, DILLON, abdominal pain black or bloody stools, blood in urine or focal weakness. +she did have some problems with allergies and shingles May-Jul 2023, but feeling better now Energy level: Poor - she r/t thyroid medication changes Lymphedema: yes; left-sided occasionally will wear compression sleeves. 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 She has seen the survivorship clinic, Dr. 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 Dr. Ordaz is managing this - stable. Also seeing therapist. Recent Hospitalizations: none Relevant Card Reader History: Postmenopausal age 50 yrs with an intact uterus and ovaries. HRT: No. Card Reader exams: Not regularly - saw Dr. Cannon in past Relevant PMH: Vit D def: Yes Only takes Vitamin D in winter BMD: 2019 in [place] - Osteopenia Graves disease sees endo in [place], [place] - medications are being changed around Migraine headaches stable Arthritis - stable C/o Low back pain: chronic, xrays with [facility] 09/07/2018 - stable CANCER SURVEILLANCE: Date of first mammogram: Does not remember Breast MRI: Never Colonoscopy: - polyps - due in [id number] Skin cancer screen: Not regularly Eye exams: Annually Dental exams: Twice annually RISK FACTORS FOR BREAST CANCER: Age at the onset of menses: 11 yrs G 3 P: 3 Age at the of first child: 17 yrs She Breast fed: Yes Chest Irradiation: No Contraceptive use: OCP x 10 years Hx of infertility medication: no Postmenopausal obesity: Body mass index is 24.84 kg/m . Mammographic density: Heterogeneously dense Personal History of Benign Atypical Breast Biopsy: no Alcohol use: Social History Substance and Sexual Activity Alcohol Use Yes Alcohol/week: 4.0 standard drinks of alcohol Types: 4 Standard drinks or equivalent per week Comment: Usually one drink a day Tobacco use Social History Tobacco Use Smoking Status Former Packs/day: 0.00 Years: 0.50 Additional pack years: 0.00 Total pack years: 0.00 Types: Cigarettes Smokeless Tobacco Never Tobacco Comments quit teen years Caffeine intake: 2 cups daily Exercise: None currently - would like to restart yoga GENETICS: Ashkenazi Ancestry: No Genetic counseling: Yes Genetic testing: Underwent 91-gene panel test is called [employer]-Cancer+RNA and was performed by [facility] 02/2023 and she does not have any pathogenic variants (mutations) in any of the genes on this panel Genes tested: AIP, ALK, APC, SHUBHAM, AXIN2, BAP1, BARD1, BLM, BMPR1A, BRCA1, BRCA2, BRIP1, CASR, CDC73, CDH1, CDK4, CDKN1B, CDKN2A, CFTR, CHEK2, CPA1, CTNNA1, CTRC, DICER1, EGFR, EGLN1, EPCAM, BEZ134M, FANCC, FH, FLCN, GALNT12, GREM1, HOXB13, KIF1B, KIT, LZTR1, MAX, MEN1, MET, MITF, MLH1, MLH3, MRE11A, MSH2, MSH3, MSH6, MUTYH, NBN, NF1, NF2, NTHL1, PALB2, PALLD, PDGFRA, PHOX2B, PMS2, POLD1, POLE, POT1, PBLBO0M, PRSS1, PTCH1, PTEN, RAD50, RAD51C, RAD51D, RB1, RECQL, RET, RINT1, RPS20, SDHA, SDHAF2, SDHB, SDHC, SDHD, SMAD4, SMARCA4, SMARCB1, SMARCE1, SPINK1, STK11, SUFU, TERT, WJXL099, TP53, TSC1, TSC2, VHL, and XRCC2. FAMILY HISTORY: Family History Problem Relation Age of Onset Hypertension Mother Diabetes Sister Other - Specify Sister thyroid issues Diabetes Brother Celiac Disease Daughter Inflammatory Bowel Disease Daughter Celiac Disease Daughter thyroid issues since mid 30's Breast Cancer Maternal Aunt 85 Breast Cancer Other 75 1st Cousin (Maternal) Colorectal Cancer Neg Hx Lung Cancer Neg Hx Ovarian Cancer Neg Hx Prostate Cancer Neg Hx Uterine Cancer Neg Hx Sisters: 2 half sisters Maternal aunts:4 Paternal aunts:4 Daughters: 2 Family history of breast cancer: Yes Maternal aunt age 80 years Maternal cousin age 72 years Family history of ovarian cancer: No Other Cancers in particular as listed below: Yes Prostate cancer brother age 65 years There is no family history of colon, uterine, pancreatic, gastric, brain, renal cell or thyroid cancer. There is no family history of melanoma, sarcoma or leukemia. PAST MEDICAL HISTORY Past Medical History: Diagnosis Date Arthritis Back pain 1991 Breast cancer 09/2011 left breast Cognitive changes Grave's disease History of chemotherapy 2011 left breast cancer History of radiation therapy 2007 Iodine 131, Graves Disease (thyroid) History of radiation therapy 2012 left breast Hypothyroidism Shingles outbreak 07/2023 pt had lesions to chest PAST SURGICAL HISTORY Past Surgical History: Procedure Laterality Date COLONOSCOPY DIAGNOSTIC N/A 07/18/2020 Laterality: N/A; Surgeon: Faiza Torres MD; Location: [facility] [place] EGD DIAGNOSTIC N/A 02/01/2014 Laterality: N/A; Surgeon: Katty Coello MD; Location: [facility] COLONOSCOPY DIAGNOSTIC N/A 01/05/2013 Surgeon: Katty Ruelas MD; Location: [facility] MASTECTOMY MODIFIED RADICAL 05/22/2012 Laterality: Left; Surgeon: Sukumar Pelletier MD;; Location: [facility] MA[facility] OR LYMPH NODE DISSECTION Left 05/22/12 No metastatic carcinoma present in 11 identified lymph nodes MASTECTOMY Left 05/22/12 Mammary tissue with tumor bed characterized by stromal CORE BIOPSY OF THE BREAST Left 10/21/11 IDC + Lymphoid tissue and metastatic high nuclear grade carcinoma NUC THERAPY ABLATION THYROID CA 2006 MEDICATIONS Current Outpatient Medications Medication Sig B Complex Vitamins (VITAMIN B COMPLEX PO) Take by mouth As directed. DULoxetine (Cymbalta) [address] Particles capsule DR Take 1 capsule by mouth daily. ergocalciferol 42259 UNITS Cap take 1 Cap by mouth once a week. Liothyronine 5 MCG tablet Take by mouth daily. Takes 1/2 daily [START ON 12/03/2023] Methylphenidate 5 MG tablet Take 7.5mg in AM, 7.5mg at noon and 2.5 mg in afternoon [START ON 11/04/2023] Methylphenidate 5 MG tablet Take 7.5mg in AM, 7.5mg at noon and 2.5 mg in afternoon Methylphenidate 5 MG tablet Take 7.5mg in AM, 7.5mg at noon and 2.5 mg in afternoon thyroid 60 MG tablet Take 1 tablet by mouth daily. Take 1.25 tablets by mouth daily (75 mg) traZODone 50 MG Tab Take 1 tablet by mouth At bedtime. ALLERGIES Allergies Allergen Reactions Nutritional Supplements Swelling Vitamins Sulfa Antibiotics Hives, Rash and Nausea Only IMMUNIZATIONS Immunization History Administered Date(s) Administered [id number] COVID-19 monovalent vaccine (Moderna), 12yr+, 100mcg/0.5mL 01/07/2021, 02/05/2021 influenza, injectable, quadrivalent 08/18/2017 SOCIAL HISTORY She reports that she has quit smoking. Her smoking use included cigarettes. She has never used smokeless tobacco. She reports current alcohol use of about 4.0 standard drinks of alcohol per week. She reports that she does not use drugs. PHYSICAL EXAMINATION: VITAL SIGNS: BP 127/90 (BP Location: Right arm, BP Position: Sitting) Pulse 87 Temp 97.9 F (36.6 C) (Oral) Wt 66.7 kg (147 lb) BMI 24.84 kg/m Smoking Status Former ,Body mass index is 24.84 kg/m . GENERAL: Well nourished, well developed, female in no acute distress. HEENT: Head: Normocephalic and atraumatic. Eyes: PERRL EOMI Neck: Supple, no thyromegaly. Breasts/chest wall and Regional Lymph Nodes: The Patient was examined in the upright and supine positions. Right breast: The patient has no discrete, concerning, palpable right breast masses. L anterior chest wall: The patient has no discrete, concerning, palpable masses. +mild tenderness to palpation laterally There are no suspicious skin changes bilaterally. No right nipple abnormalities. The patient has no cervical, supraclavicular or axillary adenopathy bilaterally. ABDOMEN: Abdomen Soft, non-tender, non-distended. EXTREMITIES: No significant lymphedema on exam today. Skin exam: warm and pink, no rashes or skin lesions. Psych exam: Mood is normal, maintains good eye contact, logical thoughts. IMAGING: Narrative & Impression EXAM: MAMMO SCREENING WITH CHEPE RIGHT, 10/12/2023 15:18 PM CLINICAL INDICATIONS: 63-year-old female with a history of left breast cancer with mastectomy 05/22/2012. COMPARISON: 10/06/2022, 09/28/2021, 09/15/2020, 09/11/2019, and 09/07/2018 TECHNIQUE: 3-D MLO and CC digital tomosynthesis images were obtained of the right breast. Synthetic 2-D images were generated from the tomosynthesis data. Computer aided detection was utilized. FINDINGS: The breast is heterogeneously dense, which may obscure small masses. Benign appearing calcifications are noted. There are no suspicious masses, calcifications, or architectural distortions. IMPRESSION IMPRESSION: No mammographic evidence of malignancy. BI-RADS: 2: Benign Recommendation: Routine mammography. Recommendation Laterality: Right The current National Comprehensive Cancer Network and [place] [employer] guidelines recommend women undergo a screening mammogram every year over the age of 40 and continue mammographic screening as long as they are in good health. Screening mammography under age 40 may occur for women who are at increased risk for breast cancer. ESSION/PLAN: Milla Piper is a 63 y.o. female with h/o left breast TNBC, s/p left mastectomy/chemotherapy/radiatio n, and FH of breast cancer. There is no evidence of malignancy. The patient was reassured as to the probably benign nature of her clinical exam and imaging. She was encouraged on SBA and to notify our office of any changes or concerns. History of Breast Cancer: Under observation. She has no clinical evidence of breast recurrence or new contralateral disease. Chronic left chest wall/axillary pain: She has seen PT in past and will be referred again. Genetics: Underwent 91-gene panel test is called [employer]-Cancer+RNA and was performed by [facility] 02/2023 and she does not have any pathogenic variants (mutations) in any of the genes on this panel Lifestyle changes The patient is advised to exercise regularly, achieve/maintain ideal body weight, and to limit alcohol consumption to less than 7 drinks weekly for breast cancer risk reduction and overall health. Health maintenance: We discussed the appropriate age related health maintenance screenings including Pap and pelvic exam, colonoscopy, mammogram and bone mineral density exams. We encouraged her to follow-up with her PCP and to discuss concerns regarding health maintenance screenings. All of her questions were addressed during today's visit. Return in about 1 year (around 10/12/2024) for to see Tila with mammo. referral to PT. . documented in this encounter [facility] 10-12-2023 History of Presen t illness Narrative Patient offered a medical sales representative trainee for sensitive exam. Pt declined documented in this encounter [facility] 10-05-2023 History of Presen t illness Narrative Follow up Note Time to complete visit: I spent 30 minutes preparing to see the patient (including chart review and preparation), obtaining and/or reviewing additional medical history, performing a physical examination and evaluation, documenting clinical information in the electronic health record, independently interpreting results, communicating results to family or caregiver, and/or coordinating care. CC: follow-up Subjective: Patient here for follow-up of cognitive impairments related to cancer therapy as well as neuropathy. She is feeling a lot better now back on the Cymbalta and likes the 30 mg dosing. The Ritalin continues to help with concentration. No new weakness. She is taking Ritalin 7.5 mg, 7.5 mg after lunch, and occasionally 2.5 mg late afternoon if she is going out or has errands to run. Prior Medications: - Did not tolerate ER dosing of methylphenidate - Discontinued low-dose, low-frequency Aricept for cognition/memory d/t GI side effects. - Gabapentin- did not tolerate due to worsening mood (depression) - Nortriptyline - did not tolerate 10 mg with significant AM hangover Last in-person visit: today Objective: Constitutional: NAD Eyes: EOMI PULM: Breathing unlabored SKIN: No rashes PSYCH: Mood and affect congruent NEURO: Alert and oriented. CN2-12 grossly intact. Language fluent. Moving all limbs spontaneously and at least anti-gravity throughout Recent Labs/Imaging/Procedures: 12/08/2022 urine tox - no unanticipated medications, Ritalin was not tested for Lab Results Component Value Date ALT 13 09/28/2021 ALT 11 11/24/2015 AST 22 09/28/2021 AST 18 11/24/2015 ALKPHOS 66 09/28/2021 ALKPHOS 69 11/24/2015 BILITOTAL 0.5 09/28/2021 BILITOTAL 0.4 11/24/2015 BILIDIRECT 0.1 09/23/2014 ALBUMIN 4.4 09/28/2021 ALBUMIN 4.3 11/24/2015 Assessment: 1. Chemotherapy-induced encephalopathy 2. Fatigue 3. Memory disturbance 4. Chemotherapy-induced neuropathy 5. Sleep disturbance 6. History of breast cancer Plan: 1. Continue Ritalin 7.5 mg in AM, 7.5 mg at noon, and 2.5 mg around 4 PM as needed. Dated scripts sent electronically today x 3 - OARRS report reviewed and is appropriate. - UDS obtained today 2. Continue Cymbalta 20 mg daily. Has refills 3. Follow-up in 3 months by video Yazmin Ordaz MD Interventional Pain Physician [facility] Pain assessment/evaluation and pain score completed during this visit. UDT specimen kit supplied to pt along with education/instruction. UDT obtained, labelled in front of the pt, and sent to [facility]. UDT Testing Table CURRENT PAIN MEDICATIONS DOSE LAST DOSE Duloxetine 30 10/04 Methyphendiate 5 10/05 Trazodone 50 10/04 documented in this encounter [facility] 02-22-2023 History of Presen t illness Narrative REASON FOR VISIT: Ms. Piper is a 62 year-old woman who presents for genetic risk assessment due to her personal diagnosis of triple negative breast cancer and her family history of breast cancer. She was interested in testing to clarify future cancer risks for herself and her family so they can be proactive in their care. Ms. Piper presented in September 2011, at age 51, with a left breast lump. A biopsy showed invasive ductal carcinoma that was triple negative. She was treated with neoadjuvant chemotherapy and had a left mastectomy on 05/22/12 with no evidence of residual disease and negative lymph nodes. She then completed treatment with adjuvant chemotherapy and radiation therapy. Ms. 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 FAMILY HISTORY A copy of Ms. Fosters pedigree will be made available under the media tab for 02/22/23. Cancer history in the family includes: Daughter with an acoustic neuroma (noted to be near her brain stem) at age 28. Maternal aunt with breast cancer in her 90's. Maternal first cousin (through an unaffected uncle) with breast cancer in her 70's. This cousin has a granddaughter (through an unaffected daughter) with triple negative breast cancer at age 30. Maternal first cousin (through an unaffected aunt) with an adult-onset brain tumor, . Paternal uncle with a brain tumor in his 50's-60's. Ashkenazi Protestant ancestry is denied. The diagnoses in the family have not been confirmed with medical records. CANCER SCREENING: Ms. Mederos breast cancer screening includes: Mammogram annually. Last occurred on 10/06/22 and was normal. Ms. Mederos gynecologic cancer screening includes: Pelvic exam not regularly. Last occurred prior to covid and was normal. Pap smear not regularly. Last occurred prior to covid and was normal. Transvaginal ultrasound never. Ms. Mederos GI screening includes: Colonoscopy not regularly. Total number of times 2 01/05/13 - normal 07/18/20 - 2 TA's. Endoscopy not regularly. Total number of times 1 in her 20's - ulcers Ms. Mederos skin screening includes: once for a skin check. RISK ASSESSMENT: Ms. Mederos diagnosis of breast cancer could be associated with a hereditary cancer syndrome. A large study of [id number] women with a single diagnosis of breast cancer found that 9.3% had a pathogenic variant (mutation) in a cancer susceptibility gene. Around half of the variants were in the BRCA1 or BRCA2 genes and half were in other genes including CHEK2, SHUBHAM, PALB2. Women under age 40 at diagnosis were more likely to test positive for one of these variants. Women over age 59 at diagnosis were less likely to test positive for one of these variants. Women who were diagnosed between ages 40 and 59 years had an 8-9% likelihood of testing positive for a variant. These results may have implications on cancer risk for the patient and her family. I reviewed the components of a genetic risk assessment with the patient and discussed her contributing risks in each area. I reviewed the differences between sporadic, familial, and hereditary types of breast cancers. I also discussed the differential diagnosis of hereditary breast cancer with her. Based on her personal information and family history, the patient meets criteria for testing because of her personal diagnosis of triple negative breast cancer. We discussed hereditary cancer syndromes in detail, the patient's risks of other cancers or health problems, testing options and costs, and insurance issues. We discussed different possible outcomes of genetic testing and the ramifications these could have on risk assessment and ability to provide information for the patient and her family. IMPRESSION AND PLAN: Based upon Ms. Piper's personal and family history, she elected to pursue genetic testing of the BRCA1 and BRCA2 genes as part of a multi-gene panel. A blood sample was obtained and sent to [facility] for the [employer] [facility] panel plus RNA. We will contact her by telephone when her results are available. At that time, we will discuss specific management recommendations based on the test result. Counseling time spent with patient: 77 minutes; (76-105 minutes = 3 units) 11:23 AM - 12:40 PM documented in this encounter [facility] 12-08-2022 History of Presen t illness Narrative . Follow up Note CC: follow-up Subjective: Patient here for follow-up of cognitive impairments related to cancer therapy as well as neuropathy. She is feeling a lot better now back on the Cymbalta. The Ritalin continues to help with concentration. She continues to work with her endocrionologist on her thyroid medication. No new weakness. She is taking Ritalin 7.5 mg, 7.5 mg after lunch, and occasionally 2.5 mg late afternoon if she is going out or has errands to run. Prior Medications: - Did not tolerate ER dosing of methylphenidate - Discontinued low-dose, low-frequency Aricept for cognition/memory d/t GI side effects. - Gabapentin- did not tolerate due to worsening mood (depression) - Nortriptyline - did not tolerate 10 mg with significant AM hangover Recent Labs/Imaging/Procedures: 06/24/2021 urine tox - no unanticipated medications, Ritalin present. Updated UDS ordered today Pain contract - signed today 12/08/2022 Lab Results Component Value Date ALT 13 09/28/2021 ALT 11 11/24/2015 AST 22 09/28/2021 AST 18 11/24/2015 ALKPHOS 66 09/28/2021 ALKPHOS 69 11/24/2015 BILITOTAL 0.5 09/28/2021 BILITOTAL 0.4 11/24/2015 BILIDIRECT 0.1 09/23/2014 ALBUMIN 4.4 09/28/2021 ALBUMIN 4.3 11/24/2015 Assessment: 1. Chemotherapy-induced encephalopathy 2. Fatigue 3. Memory disturbance 4. Chemotherapy-induced neuropathy 5. Sleep disturbance 6. History of breast cancer Plan: 1. Continue Ritalin 7.5 mg in AM, 7.5 mg at noon, and 2.5 mg around 4 PM as needed. Dated scripts sent electronically today x 3 - OARRS report reviewed and is appropriate. 2. Continue Cymbalta 20 mg daily. Refilled today 3. Follow-up in 3 months by video Yazmin Ordaz MD Interventional Pain Physician [facility] documented in this encounter [facility] 12-08-2022 Instructions Yazmin Ordaz MD - 12/08/2022 11:30 AM EST Follow-up in 3 months by video documented in this encounter [facility] 10-06-2022 History of Presen t illness Narrative NOTE: VERIFY NAME, , ADDRESS FOR CLIENT(UPDATE CATAPULT) Bra Prosthesis Note Milla Piper is being seen today at [facility] by Lauren Meyer for a Breast Issue. Her surgery was in 2011. Mastectomy: R__ L_X_ Bilateral __ Lumpectomy: R__ L__ Bilateral__ Reconstruction: Yes__ No _X_ Reconstruction removed Yes__ No__ Orders Orders: Orders reviewed __X__ Dx code _Z85.3 Req Rx from [facility] Measurements Bra Band: 31 inches Fullest part of Bust: 38 inches Final band size: Large Final cup size: Large Prosthesis/Form: Size: 6 Additional Visit information Client Visit: pre/post op___ routine/annual__X_ refit___ reorder/no fitting___. Goals that were discussed with patient: Milla's weight fluctuates 30# or so concerning thyroid function. She's currently wearing a seamless sports type bra from [employer] which fastens in back, but has been wearing a medium with biological lab technician. I suggested the Large and said it was important to fit her size currently. She was concerned about future weight loss. I suggested saving smaller sized bras for weight loss, but to wear the Large now since it is a perfect fit on her. It provided comfort and symmetry with prosthesis. Reason for replacement of bras: No longer supportive. Reason for replacement of prosthesis: Did not replace. Concerns/comments about fitting: None Did you instruct client on don/doffing procedures: Yes Did you instruct client of care for pros/bras: Yes Did you instruct client of warranty/storage of pros/bras: Yes Purchased: 2 [employer]i [id number] PK Large bras Product ordered: None DID YOU RELEASE CARE INSTRUCTIONS - Y documented in this encounter [facility] 10-06-2022 History of Presen t illness Narrative Patient offered a medical sales representative trainee for sensitive exam. Pt declined. documented in this encounter [facility] 06-24-2021 History of Presen t illness Narrative Cancer Support [facility] evaluation and pain score completed during this visit. UDT specimen kit supplied to pt along with education/instruction. UDT obtained, labelled in front of the pt, and sent to [facility]. AVS reviewed with patient and prescriptions for pain management provided at discharge (where noted in AVS). PM&R phone number and hours of operation reviewed at discharge. Follow up Note CC: follow-up Subjective: Patient here for follow-up of cognitive impairments related to cancer therapy as well as neuropathy. The fatigue is stable on her current Ritalin dosing. She had not been always taking the nighttime dose during COV, but has started taking it more now. She has been working on the [employer] at her new house. No new weakness or numbness. She is taking Ritalin 7.5 mg, 7.5 mg after lunch, and occasionally 2.5 mg late afternoon if she is going out or has errands to run. She did not tolerate the Cymbalta 30 mg daily so she is still taking 20 mg and is tolerating this well. 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 Has done Music therapy for cognitive issues Massage therapy for relaxation and tension relief OT, finished. Prior Medications: - Did not tolerate ER dosing of methylphenidate - Discontinued low-dose, low-frequency Aricept for cognition/memory d/t GI side effects. - Gabapentin- did not tolerate due to worsening mood (depression) - Nortriptyline - did not tolerate 10 mg with significant AM hangover Objective: There were no vitals filed for this visit. Constitutional: NAD, sitting comfortably in exam room Eyes: EOMI PULM: Breathing unlabored SKIN: No rashes PSYCH: Mood and affect congruent NEURO: Alert and oriented. CN2-12 grossly intact. Language fluent. Moving all limbs spontaneously and at least anti-gravity throughout. Recent Labs/Imaging/Procedures: 10/17/2019 urine tox - no unanticipated medications Lab Results Component Value Date ALT 13 11/19/2020 ALT 11 11/24/2015 AST 23 11/19/2020 AST 18 11/24/2015 ALKPHOS 63 11/19/2020 ALKPHOS 69 11/24/2015 BILITOTAL 0.4 11/19/2020 BILITOTAL 0.4 11/24/2015 BILIDIRECT 0.1 09/23/2014 ALBUMIN 4.6 11/19/2020 ALBUMIN 4.3 11/24/2015 Assessment: 1. Chemotherapy-induced encephalopathy 2. Fatigue 3. Memory disturbance 4. Chemotherapy-induced neuropathy 5. Sleep disturbance 6. History of breast cancer 7. Muscle spasms/tightness Plan: 1. Continue Ritalin 7.5 mg in AM, 7.5 mg at noon, and 2.5 mg around 4 PM as needed. Dated scripts sent electronically today x 3 - OARRS report reviewed and is appropriate 2. Continue Cymbalta 20 mg daily - still has refills 3. UDS ordered and obtained today 4. Follow-up in 3 months by video Yazmin Ordaz MD Interventional Pain Physician [facility] documented in this encounter [facility] Diagnosis HX: breast cancer- Primary Personal history of malignant neoplasm of breast documented in this encounter [facility] Diagnosis Personal history of breast cancer Personal history of malignant neoplasm of breast S/P left mastectomy Acquired absence of breast and nipple Encounter for screening mammogram for breast cancer documented in this encounter [facility] Diagnosis Chemotherapy-induced peripheral neuropathy Fatigue, unspecified type documented in this encounter [facility] Diagnosis Personal history of malignant neoplasm of breast- Primary [facility] Diagnosis Chemotherapy-induced peripheral neuropathy Fatigue, unspecified type Encephalopathy chronic Other encephalopathy [facility] in this encounter [facility] Diagnosis Personal history of breast cancer Personal history of malignant neoplasm of breast S/P left mastectomy Acquired absence of breast and nipple [facility] Diagnosis Personal history of breast cancer- Primary Personal history of malignant neoplasm of breast S/P left mastectomy Acquired absence of breast and nipple Encounter for screening mammogram for malignant neoplasm of breast Other [facility] Family History No Family History Records FoundNo Family History Records FoundNo Family History Records Found Advance Directives No Advanced Directives Records FoundNo Advanced Directives Records FoundNo Advanced Directives Records Found Hospital Course Note Send Summary: Discharge Summ manas Providers: Provider RoleProvider Name AttendingYury JesseMino fan Tai-Chi Discharge: Summary: Admission Date: .08-Jun-2020 01:23:00 Discharge Date: 09-Jun-2020 Admission Reason: syncope Final Discharge Diagnoses: syncope Procedures: none Vital Signs: T PRBPSpO2 [id number]/5797% Date/Time06/09 3: 3: 3: 3: 3:00 Range(35.8C - 36.5C ) (65 - 73 ) (16 - 18 ) (96 - 115 )/ (57 - 80 ) (97% - 98% ) Physical Exam: Constitutional: awake/alert/oriented x3, not in acute distress, Eyes: PERRL, EOMI, clear sclera ENMT: normal hearing, mucous membranes moist, no pharyngeal erythema or exudates Head/Neck: Frontal head left side laceration wound that is coagulated and not bleeding with no tenderness around it. Neck supple, no apparent injury, no JVD, no lymphadenopathy, trachea midline Respiratory/Thorax: patent airways, clear to auscultation bilaterally, no crackles or wheezing or rhonchi Cardiovascular: Regular, rate and rhythm, n (more content not included)... Reason for Referral Specialty Diagnoses / Procedures Referred By Mary merrill Referred To Contact Diagnoses Personal history of breast cancer S/P left mastectomy Encounter for screening mammogram for breast cancer Procedures MAMMO SCREENING WITH CHEPE RIGHT Reina Rosario BOILING TUB OPERATOR-TIMBER REPAIRER [address] [place] [id number] Referral ID Status Reason Start Date Expiration Date V isits Requested Visits Authorized [id number] Pending Review 09/28/2021 10/23/2022 1 1 Specialty Diagnoses / Procedures Referred By Mary merrill Referred To Contact Diagnoses Personal history of breast cancer S/P left mastectomy Procedures MAMMO SCREENING WITH CHEPE RIGHT Robert Mendez, BOILING TUB OPERATOR-TIMBER REPAIRER [address], [address] [place] [address] Referral ID Status Reason Start Date Expiration Date V isits Requested Visits Authorized [id number] Pending Review 10/06/2022 10/31/2023 1 1 Specialty Diagnoses / Procedures Referred By Mary t Referred To Contact Diagnoses Personal history of breast cancer S/P left mastectomy Encounter for screening mammogram for malignant neoplasm of breast Procedures MAMMO SCREENING WITH CHEPE RIGHT Robert Mendez, BOILING TUB OPERATOR-TIMBER REPAIRER [address], [address] [place] [address] Referral ID Status Reason Start Date Expiration Date V isits Requested Visits Authorized [id number] New Request 10/12/2023 11/05/2024 1 1 Specialty Diagnoses / Procedures Referred By Mary t Referred To Contact Physical Therapy Diagnoses Personal history of breast cancer S/P left mastectomy Robert Mendez, BOILING TUB OPERATOR-TIMBER REPAIRER [address] [facility], [address] [place] [address] Referral ID Status Reason Start Date Expiration Date V isits Requested Visits Authorized [id number] New Request 10/12/2023 11/05/2024 1 1 Additional Source Comments INFORMATION SOURCE (unrecogn ized section and content) DATE CREATED AUTHOR AUTHOR'S ORGANIZ ATION 06/14/2020 [facility] DATE CREATED AUTHOR AUTHOR'S ORGANIZ ATION 10/15/2023 [facility] Reason for Visit (unrecogniz ed section and content) Reason Comments Breast Problem Specialty Diagnoses / Procedures Referred By Mary t Referred To Contact Diagnoses Personal history of breast cancer S/P left mastectomy Encounter for screening mammogram for breast cancer Procedures MAMMO SCREENING WITH CHEPE RIGHT Reina Rosario, BOILING TUB OPERATOR-TIMBER REPAIRER [address] [place] [address] Referral ID Status Reason Start Date Expiration Date V isits Requested Visits Authorized [id number] Pending Review 09/28/2021 10/23/2022 1 1 Reason Comments Pain Reason Comments Genetic Risk Assessment Personal history [facility] Specialty Diagnoses / Procedures Referred By Mary t Referred To Contact Genetics Diagnoses Personal history of breast cancer Robert Mendez, BOILING TUB OPERATOR-TIMBER REPAIRER [address], [address] [place] [address] Referral ID Status Reason Start Date Expiration Date V isits Requested Visits Authorized [id number] New Request 10/06/2022 10/31/2023 1 1 Specialty Diagnoses / Procedures Referred By Contac t Referred To Contact Diagnoses Personal history of breast cancer S/P left mastectomy Procedures MAMMO SCREENING WITH CHEPE RIGHT Robert Mendez, BOILING TUB OPERATOR-TIMBER REPAIRER [address], [address] [place] [address] Referral ID Status Reason Start Date Expiration Date V isits Requested Visits Authorized [id number] Pending Review 10/06/2022 10/31/2023 1 1 Reason Comments Follow-up Pts states that she has tightness to left axillary area. Pt states that she has not been doing PT exercises that were recommended as frequently; rt chest, just above port incision w/some fullness and thickness. Care Teams (unrecognized sec tion and content) Paintings Conservator Relationship Specialty Start Date End Date Yari Simmons MD [address] [place], [place] [address] PCP - General Internal Medicine 01/04/17 Aviva Katz MD [address] [id number] Obstetrics & Gynecology 11/03/11 Juliette Dean, KASHIF Registered Nurse Medical Oncology 07/17/12 Melissa Rodriguez MBBS Medical Oncology 04/09/16 Trang Thompson, PhD [address] [facility] [address] [place] [address] Psychologist Psychology 06/08/17 Paintings Conservator Relationship Specialty Start Date End Date Yari Simmons MD [address] [place] [address] PCP - General Internal Medicine 01/04/17 Aviva Katz MD [address] [phone] Obstetrics & Gynecology 11/03/11 Juliette Dean RN Registered Nurse Medical Oncology 07/17/12 Melissa Rodriguez MBBS Medical Oncology 04/09/16 Trang Thompson, PhD [address] [phone] Psychologist Psychology 06/08/17 Paintings Conservator Relationship Specialty Start Date End Date Yari Simmons MD [address] [facility] [address] [place] [address] PCP - General Internal Medicine 01/04/17 Aviva Katz MD [address] [phone] Obstetrics & Gynecology 11/03/11 Juliette Dean RN Registered Nurse Medical Oncology 07/17/12 Melissa Rodriguez MBBS Medical Oncology 04/09/16 Trang Thompson, PhD [address] [address] Psychologist Psychology 06/08/17 Paintings Conservator Relationship Specialty Start Date End Date Yari Simmons MD [address] [facility] [address] [place] [address] PCP - General Internal Medicine 01/04/17 Aviva Katz MD [address] [address] Obstetrics & Gynecology 11/03/11 Jermaine, Juliette, RN Registered Nurse Medical Oncology 07/17/12 Melissa Rodriguez MBBS Medical Oncology 04/09/16 Trang Thompson, PhD [address] [address] Psychologist Psychology 06/08/17 Paintings Conservator Relationship Specialty Start Date End Date Yari Simmons MD [address] [place] [address] PCP - General Internal Medicine 01/04/17 Aviva Katz MD [address] [address] Obstetrics & Gynecology 11/03/11 Melissa Rodriguez MBBS [address] [address] Medical Oncology 04/09/16 Trang Thompson, PhD [address] [address] Psychologist Psychology 06/08/17 Paintings Conservator Relationship Specialty Start Date End Date Yari Simmons MD [address] [place] [address] PCP - General Internal Medicine 01/04/17 Aviva Katz MD [address] [address] Obstetrics & Gynecology 11/03/11 Melissa Rodriguez MBBS [address] [address] Medical Oncology 04/09/16 Trang Thompson, PhD [address] [address] Psychologist Psychology 06/08/17 Paintings Conservator Relationship Specialty Start Date End Date Yari Simmons MD [address] [place] [address] PCP - General Internal Medicine 01/04/17 Aviva Katz MD [address] [address] Obstetrics & Gynecology 11/03/11 Melissa Rodriguez MBBS [address] [address] Medical Oncology 04/09/16 Trang Thompson, PhD [address] [address] Psychologist Psychology 06/08/17 FOR RECORDS PERTAINING TO PATIENTS WHO ARE OR HAVE BEEN ENROLLED IN A CHEMICAL DEPENDENCY/SUBSTANCEABUSE PROGRAM, SOME INFORMATION MAY BE OMITTED. This clinical summary was aggregated from multiple sources. Caution should be exercised in using it in the provision of clinical care. This summary normalizes information from multiple sources, and as a consequence, information in this document may materially change the coding, format and clinical context of patient data. In addition, data may be omitted in some cases. CLINICAL DECISIONS SHOULD BE BASED ON THE PRIMARY CLINICAL RECORDS. [employer] provides no warranty or guarantee of the accuracy or completeness of information in this document.
== END | disposition home or self-care (01) ==
LOC: PSN 11:13
PROVIDERS: PCP Family Medicine Geriatric Medicine; Referring Provider Family Medicine Geriatric Medicine; Visit Provider Family Medicine Geriatric Medicine
DX: R68.83 Chills (without fever) (principal)
CPT/HCPCS: 87631

== ENCOUNTER 2024-01-05 13:14 | Outpatient (CLI) | payer OTHER, SELFPAY ==
[2024-01-05 14:33] LABS: Absolute Lymphocyte Count 2.01 X10^3/uL (0.83-4.51); Absolute Neutrophil Count 4.1 X10^3/uL (2.0-7.7); Basophil# 0.03 X10^3/uL; Basophil% 0.4 % (0-1); Eosinophil# 0.14 X10^3/uL; Hematocrit 37.1 % (37-47); Hemoglobin 12.3 g/dL (12.0-15.0); Lymphocyte # 2.01 X10^3/ul (0.83-4.51); Lymphocyte % 29.3 % (19-41); Mean Corp Hgb Conc 33.2 g/dL (32-36); Mean Corpuscular Hgb 29.9 pg (27.0-32.0); Mean Corpuscular Volume 90.3 fL (81-99); Mean Platelet Vol. 9.5 fl (6.2-12.0); Monocyte# 0.55 X10^3/uL; NRBC Flagged by Analyzer 0 % (0-5); Neutrophil # 4.11 X10^3/uL (2.7-7.7); Neutrophil % 60.2 % (47-70); Platelet Count 337 K/mm3 (150-450); RBC Distribution Width CV 13.5 % (11.6-14.6); RBC Distribution Width SD 45.2 fl (35.1-43.9); Red Blood Count 4.11 M/mm3 (4.2-5.4); White Blood Count 6.9 K/mm3 (4.4-11.0)
[2024-01-05 14:59] LABS: ALB/GLOB Ratio 0.8 RATIO (0.9-2.4); AST(SGOT) 21 U/L (15-37); Alanine Aminotransfer ALT/SGPT 23 U/L (13-56); Albumin, Serum 3.5 g/dL (3.2-5.0); Alkaline Phosphatase 63 U/L (45-117); Anion Gap 10 (5-15); BUN 7 mg/dL (7-18); BUN/Creat Ratio 8.4 RATIO (10-20); Calcium,Total 9.1 mg/dL (8.5-10.1); Chloride 102 mmol/L (98-107); Creatinine, Serum 0.83 mg/dL (0.55-1.02); EST Glomerular Filtration Rate 74 mL/min (>60); Est Glom Filt Rate - Afr Amer 89 mL/min (>60); Globulin 4.2 g/dL (2.2-4.2); Glucose 89 mg/dL (74-106); Magnesium 2.1 mg/dL (1.6-2.6); Potassium 3.8 mmol/L (3.5-5.1); Protein, Total 7.7 g/dL (6.4-8.2); Sodium Level 136 mmol/L (136-145); Thyroid Stim Hormone (TSH) 0.18 uIU/mL (0.358-3.74)
[2024-01-05 15:06] LABS: Vitamin D,25 Hydroxy 66.7 ng/mL
== END 2024-01-05 23:59 | disposition home or self-care (01) ==
LOC: POLAB3 13:15
PROVIDERS: PCP Family Medicine Geriatric Medicine; Visit Provider Family Medicine Geriatric Medicine
DX: R53.83 Other fatigue (principal); E89.0 Postprocedural hypothyroidism; E55.9 Vitamin D deficiency, unspecified
CPT/HCPCS: 36415; 80053; 82306; 83735; 84443; 85025

== ENCOUNTER → 2024-03-30 | Outpatient (CLI) | payer OTHER, SELFPAY ==
[2024-03-30 11:38] LABS: Free T3 2.5 pg/mL (2.18-3.98); T4 Free Direct 0.67 ng/dL (0.76-1.46)
== END | disposition home or self-care (01) ==
LOC: LAB 10:18
PROVIDERS: PCP Family Medicine Geriatric Medicine; Referring Provider Physician Assistant; Visit Provider Physician Assistant
DX: E89.0 Postprocedural hypothyroidism (principal)
CPT/HCPCS: 36415; 84439; 84443; 84481

== ENCOUNTER → 2024-07-06 | Outpatient (CLI) | payer OTHER, SELFPAY | END | disposition home or self-care (01) | LOC: POLAB3 11:09 | PROVIDERS: PCP Family Medicine Geriatric Medicine; Visit Provider Family Medicine Geriatric Medicine | DX: R68.83 Chills (without fever) (principal) | CPT/HCPCS: 87631 ==

== ENCOUNTER → 2024-07-10 | Outpatient (CLI) | payer OTHER, SELFPAY ==
[2024-07-10 13:58] LABS: Absolute Lymphocyte Count 3.04 X10^3/uL (0.83-4.51); Absolute Neutrophil Count 3.5 X10^3/uL (2.0-7.7); Basophil# 0.04 X10^3/uL; Basophil% 0.5 % (0-1); Eosinophil# 0.14 X10^3/uL; Eosinophils% 1.9 % (0-5); Hematocrit 39.2 % (37-47); Hemoglobin 12.8 g/dL (12.0-15.0); Lymphocyte # 3.04 X10^3/ul (0.83-4.51); Lymphocyte % 40.9 % (19-41); Mean Corp Hgb Conc 32.7 g/dL (32-36); Mean Corpuscular Hgb 29.3 pg (27.0-32.0); Mean Corpuscular Volume 89.7 fL (81-99); Mean Platelet Vol. 9.3 fl (6.2-12.0); Monocyte# 0.73 X10^3/uL; Monocyte% 9.8 % (0-10); NRBC Flagged by Analyzer 0 % (0-5); Neutrophil # 3.47 X10^3/uL (2.7-7.7); Neutrophil % 46.6 % (47-70); Platelet Count 386 K/mm3 (150-450); RBC Distribution Width CV 13.9 % (11.6-14.6); RBC Distribution Width SD 45.5 fl (35.1-43.9); Red Blood Count 4.37 M/mm3 (4.2-5.4); White Blood Count 7.4 K/mm3 (4.4-11.0)
[2024-07-10 15:07] LABS: ALB/GLOB Ratio 0.8 RATIO (0.9-2.4); AST(SGOT) 21 U/L (15-37); Alanine Aminotransfer ALT/SGPT 26 U/L (13-56); Albumin, Serum 3.7 g/dL (3.2-5.0); Alkaline Phosphatase 67 U/L (45-117); Anion Gap 8 (5-15); BUN 13 mg/dL (7-18); BUN/Creat Ratio 14.1 RATIO (10-20); Calcium,Total 9.5 mg/dL (8.5-10.1); Chloride 97 mmol/L (98-107); Cholesterol 228 mg/dL (200); Creatinine, Serum 0.92 mg/dL (0.55-1.02); EST Glomerular Filtration Rate 65 mL/min (>60); Est Glom Filt Rate - Afr Amer 79 mL/min (>60); Globulin 4.4 g/dL (2.2-4.2); Glucose 99 mg/dL (74-106); High Density Lipoprotein 101 mg/dL; Protein, Total 8.1 g/dL (6.4-8.2); Sodium Level 132 mmol/L (136-145); Thyroid Stim Hormone (TSH) 0.859 uIU/mL (0.358-3.740); Triglycerides 128 mg/dL; Very Low Density Lipoprotein 26 mg/dL (5-40)
[2024-07-10 15:38] LABS: Free T3 3.2 pg/mL (2.18-3.98); T4 Free Direct 0.89 ng/dL (0.76-1.46)
== END | disposition home or self-care (01) ==
LOC: POLAB3 13:39
PROVIDERS: Internal Medicine Endocrinology, Diabetes & Metabolism; PCP Family Medicine Geriatric Medicine; Visit Provider Family Medicine Geriatric Medicine
DX: E89.0 Postprocedural hypothyroidism (principal); R53.83 Other fatigue; E78.5 Hyperlipidemia, unspecified
CPT/HCPCS: 36415; 80053; 80061; 84439; 84443; 84481; 85025

== ENCOUNTER → 2025-01-08 | Outpatient (CLI) | payer OTHER, SELFPAY ==
[2025-01-08 12:50] LABS: Absolute Lymphocyte Count 1.74 X10^3/uL (0.83-4.51); Basophil# 0.03 X10^3/uL; Basophil% 0.6 % (0-1); Eosinophils% 3.7 % (0-5); Hematocrit 38.9 % (37-47); Hemoglobin 12.9 g/dL (12.0-15.0); Lymphocyte # 1.74 X10^3/ul (0.83-4.51); Mean Corp Hgb Conc 33.2 g/dL (32-36); Mean Corpuscular Hgb 30.1 pg (27.0-32.0); Mean Corpuscular Volume 90.9 fL (81-99); Mean Platelet Vol. 9.6 fl (6.2-12.0); Monocyte# 0.46 X10^3/uL; Monocyte% 8.5 % (0-10); NRBC Flagged by Analyzer 0 % (0-5); Neutrophil # 2.99 X10^3/uL (2.7-7.7); Platelet Count 344 K/mm3 (150-450); RBC Distribution Width CV 13.6 % (11.6-14.6); RBC Distribution Width SD 45.7 fl (35.1-43.9); Red Blood Count 4.28 M/mm3 (4.2-5.4); White Blood Count 5.4 K/mm3 (4.4-11.0)
[2025-01-08 13:30] LABS: ALB/GLOB Ratio 1.2 RATIO (0.9-2.4); AST(SGOT) 24 U/L (<=31); Alanine Aminotransfer ALT/SGPT 14 U/L (<=34); Albumin, Serum 4.5 g/dL (3.4-4.8); Alkaline Phosphatase 74 U/L (35-104); Anion Gap 13 (5-15); BUN 12 mg/dL (4-19); BUN/Creat Ratio 14.6 RATIO (10-20); Calcium,Total 9.7 mg/dL (7.6-11.0); Carbon Dioxide 22.4 mmol/L (21.0-32.0); Chloride 98 mmol/L (98-108); Cholesterol 244 mg/dL (<=200); Creatinine, Serum 0.81 mg/dL (0.70-1.20); EST Glomerular Filtration Rate 81 (>60); Globulin 3.8 g/dL (2.2-4.2); Glucose 104 mg/dL (70-99); High Density Lipoprotein 108 mg/dL; Low Density Lipoprotein Calc. 125 mg/dL; Potassium 4.2 mmol/L (3.3-5.1); Protein, Total 8.3 g/dL (5.9-8.4); Sodium Level 133 mmol/L (133-145); Total Bilirubin 0.37 mg/dL (0.00-1.30); Triglycerides 54 mg/dL; Very Low Density Lipoprotein 11 mg/dL (5-40); Vitamin D,25 Hydroxy 46.1 ng/mL (30-100); cholesterol:hdl ratio screen 2.26
== END | disposition home or self-care (01) ==
LOC: POLAB3 11:48
PROVIDERS: PCP Family Medicine Geriatric Medicine; Visit Provider Family Medicine Geriatric Medicine
DX: R53.83 Other fatigue (principal); E55.9 Vitamin D deficiency, unspecified; E78.5 Hyperlipidemia, unspecified
CPT/HCPCS: 36415; 80053; 80061; 82306; 84443; 85025

== ENCOUNTER → 2025-04-03 | Outpatient (CLI) | payer MEDICARE, SELFPAY ==
--- NOTE | 2025-04-03 16:15 | RAD_ITS ---
PROCEDURE: RIBS UNI MIN 3V W/PA CHEST 04/03/2025 REASON FOR EXAM: RIB PAIN L SIDE TECHNIQUE: Frontal and bilateral oblique views of the bilateral ribs. COMPARISON: None. FINDINGS: The heart is normal in size. Left apical 17 mm nodule. Left axillary surgical clips. No evidence of acute rib fracture. RAD/Ribs Uni Min 3V w/PA Chest IMPRESSION: No acute rib fracture. Left apical 17 mm pulmonary nodule. Further characterization with nonemergent CT is recommended. Reading Location: [place] [address]
--- OUTSIDE RECORDS SUMMARY | 2025-04-03 22:02 | XMS RPT_ITS | CCD ---
Author Organization [facility] Care Team Providers Care Sales Development Representative Name Role Phone DOMITILA CRUZ Attending Unavailable LUC BROWNING Referring Unavailable RADHA DURBIN (RD) Attending Unavailable MILLA VALDES (EX PHYS) Attending Unavailtequila e DOMITILA CRUZ Referring Unavailable DACIA MARCOS (RD) Attending Unavailable DAQUAN CABRERA (PA) Attending Unavailable DAQUAN CABRERA (PA) Referring Unavailable Aviva Katz MD Unavailable Jermaine ROWLAND, Juliette Unavailable Unavailable Michael POLANCO, Melissa Acosta Unavailable [phone] Troy DELAROSA, [facility] Primary Care Provider Jay PhD, Trang L Unavailable [phone] Aviva Katz MD Unavailable Jermaine RN, Juliette Unavailable Unavailable Michael POLANCO, Melissa Acosta Unavailable Troy DELAROSA, [facility] Primary Care Provider Jay PhD, Trang L Unavailable [phone] Aviva Katz MD Unavailable [phone] Michael POLANCO, Melissa Acosta Unavailable Troy DELAROSA, [facility] Primary Care Provider Jay PhD, Trang L Unavailable [phone] Aviva Katz MD Unavailable Unavailable Michael POLANCO, Melissa Acosta Unavailable Jay PhD, Trang L Unavailable Unavailab Gloria Vasquez Attending Unavailable Gloria Calles Referring Unavailable Troy, Tom Chi Primary Care Unavailable Troy, Tom Chi Primary Care Unavailable Troy, Tom Chi Attending Unavailable Troy, Tom Chi Primary Care Unavailable Troy, Tom Chi Attending Unavailable Troy, Tom Chi Primary Care Unavailable Troy, Tom Chi Attending Unavailable Troy Dr. Tom DELAROSA Chi Primary Care Provider Dr. Tom Simmons MD, Chi Attending Provider [phone] TROY, TOM-CHI Primary Care Unavailable KLEMANSKI, KVNG L Referring Unavailable LUKE, YAZMIN R Attending Unavailable KLEMANSKI, KVNG L Referring Unavailable TROY, TOM-CHI Primary Care Unavailable LUKE, YAZMIN R Attending Unavailable TROY, TOM-CHI Primary Care Unavailable KLEMANSKI, KVNG L Referring Unavailable LUKE, YAZMIN R Attending Unavailable TROY, TOM-CHI Primary Care Unavailable ANDREA, ROBERT L Attending Unavailable ANDREA, ROBERT L Referring Unavailable ANDREA, ROBERT L Referring Unavailable TROY, TOM-CHI Primary Care Unavailable ANDREA, ROBERT L Attending Unavailable TROY, TOM-CHI Primary Care Unavailable KLEMANSKI, KVNG L Referring Unavailable LUKE, YAZMIN R Attending Unavailable LUKE, YAZMIN R Attending Unavailable LUKE, YAZMIN R Referring Unavailable TROY, TOM-CHI Primary Care Unavailable KLEMANSKI, KVNG L Referring Unavailable TROY, TOM-CHI Primary Care Unavailable LUKE, YAZMIN R Attending Unavailable GLORIA CALLES PA-C Attending Unavailable Allergies Allergy Classification Reported Allergen(s) Allergy Type Date of Onset Reaction(s) Facility (1 source) Bee; Translations: [BEES] Propensity to adverse reactions (disorder) 6 [facility] (10 sources) Sulfonamides (Antibiotic); Translations: [SULFA (SULFONAMIDE ANTIBIOTICS)] Propensity to adverse reactions to drug (disorder) 1 Nausea/Vom/Diar johnna [facility] (5 sources) Sulfonamides (Antibiotic) Propensity to adverse reactions to drug 2 Hives, Rash, Nausea Only [facility] (11 sources) Nutritional Supplements Propensity to adverse reactions to drug 2 Swelling [facility] (8 sources) Bee pollen Drug Allergy 7 Swelling [facility] (6 sources) Sulfonamides (Antibiotic) Propensity to adverse reactions to drug 2 Hives, Rash, Nausea Only [facility] (1 source) Bee pollen Drug allergy (disorder) 7 [facility] Medications Current Medications Medication Drug Class(es) Dates Sig (Normalized) Sig (Original) aspirin 325 mg oral tablet (3 sources) Platelet Aggregation Inhibitor, Nonsteroidal Anti-inflammatory Drug Aspirin 325 MG tablet Take 1 tablet by mouth as needed for Mild Pain. Active B Complex Vitamins (VITAMIN B COMPLEX PO) (6 sources) B Complex Vitami ns (VITAMIN B COMPLEX PO) Take by mouth As directed. Active B Complex Vitami ns (VITAMIN B COMPLEX PO) Take by mouth As directed. 0 Active donepezil hydrochloride 5 mg oral tablet (8 sources) Start: 07-19-2017 take 1 tablet by mouth every other day Donepezil (Aricept) 5 MG tablet Active 5 mg PO EVERY OTHER DAY July 19, 2017 12:00am DULoxetine 30 mg delayed release oral capsule (20 sources) Serotonin and Norepinephrine Reuptake Inhibitor Start: 07-11-2024 End: 10-03-2024 take 1 capsule by mouth once daily DULoxetine (Cymbalta) [address] Particles capsule DR Indications: Chemotherapy-ind uced peripheral neuropathy Take 1 capsule by mouth daily. 30 capsule 3 10/03/2024 Active Start: 07-06-2023 End: 10-05-2023 take 1 capsule by mouth once daily DULoxetine (Cymbalta) [address] Particles capsule DR Indications: Chemotherapy-induced peripheral neuropathy Take 1 capsule by mouth daily. 30 capsule 5 10/05/2023 Active Start: 07-19-2017 End: 12-08-2022 take 1 capsule by mouth once daily Duloxetine 20 MG capsule Active 20 mg PO DAILY July 19, 2017 12:00am ergocalciferol 1.25 mg oral capsule (11 sources) Provitamin D2 Compound Start: 05-20-2014 take 1 capsule by mouth every week ergocalciferol 30137 UNITS Cap take 1 Cap by mouth once a week. 8 Cap 0 05/20/2014 Active levocetirizine (3 sources) Histamine-1 Receptor Antagonist Levocetirizine Dihydrochloride (XYZAL ALLERGY 24HR PO) Take by mouth. Active levothyroxine sodium 0.088 mg oral tablet (8 sources) l-Thyroxine Start: 07-19-2017 take 1 tablet by mouth once daily Levothyroxine 88 MCG tablet Active 88 ug PO DAILY July 19, 2017 12:00am liothyronine sodium 0.005 mg oral tablet (18 sources) l-Triiodothyroni ne Start: 07-19-2017 take 1 tablet by mouth once daily Liothyronine 5 MCG tablet Active 2.5 ug PO DAILY July 19, 2017 12:00am Start: 07-19-2017 take 2.5 ug by mouth once ramone y Liothyronine Active 2.5 MCG PO DAILY July 19, 2017 12:00am take 0.5 tablet by m outh once daily Liothyronine 5 MCG tablet Take by mouth daily. Takes 1/2 daily Active methylphenidate hydrochloride 5 mg oral tablet (20 sources) Central Nervous System Stimulant Start: 10-11-2024 End: 01-12-2025 Methylphenidate 5 MG tablet Indications: Fatigue, unspecified type Take 7.5mg in AM, 7.5mg at noon and 2.5 mg in afternoon 100 tablet 11/10/2024 12/15/2024 Active Start: 09-08-2024 End: 10-03-2024 Methylphenidate 5 MG tablet Indications: Fatigue, unspecified type Take 7.5mg in AM, 7.5mg at noon and 2.5 mg in afternoon 100 tablet 09/08/2024 10/03/2024 Discontinued Start: 12-03-2023 End: 01-27-2024 Methylphenidate 5 MG tablet Indications: Chemotherapy-induced peripheral neuropathy , Fatigue, unspecified type , Encephalopathy chronic Take 7.5mg in AM, 7.5mg at noon and 2.5 mg in afternoon 100 tablet 0 12/03/2023 01/27/2024 Active Start: 11-04-2023 End: 11-30-2023 Methylphenidate 5 MG tablet Indications: Chemotherapy-induced peripheral neuropathy , Fatigue, unspecified type , Encephalopathy chronic Take 7.5mg in AM, 7.5mg at noon and 2.5 mg in afternoon 100 tablet 0 11/04/2023 11/30/2023 Active Start: 10-07-2023 End: 10-30-2023 Methylphenidate 5 MG tablet Indications: Chemotherapy-induced peripheral neuropathy , Fatigue, unspecified type , Encephalopathy chronic Take 7.5mg in AM, 7.5mg at noon and 2.5 mg in afternoon 100 tablet 0 10/07/2023 10/30/2023 Active Start: 09-04-2023 End: 10-05-2023 Methylphenidate 5 MG tablet Indications: Fatigue, unspecified type , Chemotherapy-induced peripheral neuropathy , Encephalopathy chronic Take 7.5mg in AM, 7.5mg at noon and 2.5 mg in afternoon 100 tablet 0 09/04/2023 10/05/2023 Discontinued (Reorder) Start: 12-11-2022 End: 12-28-2022 methylphenidate 5 MG tablet Indications: Fatigue, unspecified type Take 1.5 tab by mouth in the morning, 1.5 tab by mouth at noon, and 1/2 tab by mouth around 4 p.m. 100 tablet 0 12/11/2022 12/28/2022 Active Start: 11-12-2022 End: 11-30-2022 methylphenidate 5 MG tablet Indications: Fatigue, unspecified type Take 1.5 tab by mouth in the morning, 1.5 tab by mouth at noon, and 1/2 tab by mouth around 4 p.m. 100 tablet 0 11/12/2022 11/30/2022 Active Start: 10-13-2022 End: 10-30-2022 methylphenidate 5 MG tablet Indications: Fatigue, unspecified type Take 1.5 tab by mouth in the morning, 1.5 tab by mouth at noon, and 1/2 tab by mouth around 4 p.m. 100 tablet 0 10/13/2022 10/30/2022 Active Start: 06-29-2021 End: 09-26-2021 methylphenidate 5 MG tablet Indications: Encephalopathy chronic , Fatigue, unspecified type Take 1.5 tab by mouth in the morning, 1.5 tab by mouth at noon, and 1/2 tab by mouth around 4 p.m. 100 tablet 0 08/29/2021 09/26/2021 Active Start: 05-29-2021 End: 06-24-2021 methylphenidate 5 MG tablet Indications: Encephalopathy chronic , Fatigue, unspecified type Take 1.5 tab by mouth in the morning, 1.5 tab by mouth at noon, and 1/2 tab by mouth around 4 p.m. 100 tablet 0 05/29/2021 06/24/2021 Discontinued (Reorder) Start: 07-19-2017 End: 02-27-2023 take 1 tablet by mouth once daily Methylphenidate Hcl 5 MG tablet Active 5 mg PO DAILY July 19, 2017 12:00am omeprazole 10 mg delayed release oral capsule (8 sources) Proton Pump Inhibitor Start: 07-19-2017 take 1 capsule by mouth once daily Omeprazole 10 MG capsule Active 10 mg PO DAILY July 19, 2017 12:00am thyroid (assisted) 60 mg oral tablet (11 sources) take 1 tablet by mouth once daily, then take 1.25 tablets by mouth once daily thyroid 60 MG tablet Take 1 tablet by mouth daily. Take 1.25 tablets by mouth daily (75 mg) Active take 1.25 tablets by mouth once daily thyroid 60 MG tablet Take 60 mg by mouth daily. Take 1.25 tablets by mouth daily (75 mg) 0 Active traZODone hydrochloride 50 mg oral tablet (19 sources) Serotonin Reuptake Inhibitor Start: 07-19-2017 take 1 tablet by mouth once daily Trazodone 50 MG tablet Active 50 mg PO DAILY July 19, 2017 12:00am Completed/Discontinued Medications Medication Drug Class(es) Dates Sig (Normalized) Sig (Original) melatonin 3 mg oral tablet (2 sources) End: 10-06-2022 take 1 tablet by mouth at bedtime as needed melatonin 3 MG Tab tablet Take 3 mg by mouth at bedtime as needed. 0 10/06/2022 Discontinued (Therapy completed) Problems Active Problems Problem Classification Problem Date Documented Date Episodic/Chronic Anxiety disorders (11 sources) Anxiety disorder; Translations: [Anxiety disorder, unspecified] Onset: 07-16-2015 07-16-2015 Chronic Complications of surgical procedures or medical care (1 source) Postprocedural hypothyroidism; Translations: [Postprocedural hypothyroidism] Onset: 07-31-2024 Chronic Gastroduodenal ulcer (except hemorrhage) (2 sources) Gastric ulcer, unspecified as acute or chronic, without hemorrhage or perforation; Translations: [Gastric ulcer, unspecified as acute or chronic, without hemorrhage or perforation] Onset: 02-20-2025 Chronic Malaise and fatigue (8 sources) Other fatigue; Translations: [Fatigue] Onset: 11-08-2018 Episodic Nonspecific chest pain (2 sources) Other chest pain; Translations: [Other chest pain] Onset: 01-02-2025 Episodic Nutritional deficiencies (11 sources) Vitamin D deficiency; Translations: [Vitamin D deficiency, unspecified] Onset: 03-08-2013 03-08-2013 Chronic Other hereditary and degenerative nervous system conditions (1 source) Mild cognitive impairment, so stated; Translations: [Mild cognitive impairment, so stated] Onset: 08-02-2015 Chronic Other nervous system disorders (3 sources) Drug-induced polyneuropathy; Translations: [Drug-induced polyneuropathy] Onset: 08-27-2016 Chronic Other nervous system disorders (15 sources) Peripheral neuropathy due to and following chemotherapy; Translations: [Drug-induced polyneuropathy] Onset: 08-27-2016 Chronic Other nervous system disorders (13 sources) Chronic brain syndrome; Translations: [Other encephalopathy] Onset: 08-29-2017 Chronic Other nutritional; endocrine; and metabolic disorders (1 source) Homocystinuria; 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] Onset: 01-08-2019 Chronic Residual codes; unclassified (1 source) Other amnesia; Translations: [Other amnesia] Onset: 01-08-2019 Episodic Residual codes; unclassified (4 sources) History of left mastectomy; Translations: [Acquired absence of left breast and nipple] Episodic Thyroid disorders (12 sources) Hypothyroidism, unspecified; Translations: [Hypothyroidism] Onset: 03-08-2013 03-08-2013 Chronic Unclassified (1 source) Reserved for concepts with insufficient information to code with codable children; Translations: [Reserved for concepts with insufficient information to code with codable children] Onset: 02-06-2014 Past or Other Problems Problem Classification Problem Date Documented Date Episodic/Chronic Administrative/socia l admission (11 sources) Advance directive discussed with patient; Translations: [Other specified counseling] Onset: 03-05-2015 03-05-2015 Episodic Benign neoplasm of uterus (11 sources) Uterine leiomyoma; Translations: [Leiomyoma of uterus, unspecified] Onset: 01-26-2013 01-26-2013 Episodic Cancer of breast (20 sources) Malignant neoplasm of unspecified site of unspecified female breast; Translations: [Malignant tumor of breast ] Onset: 11-03-2011 Resolved: 08-26-2013 08-26-2013 Chronic Cancer of breast (20 sources) History of malignant neoplasm of breast; Translations: [Personal history of malignant neoplasm of breast] Onset: 12-20-2012 08-03-2016 Episodic E Codes: Adverse effects of medical drugs (2 sources) Adverse effect of antineoplastic and immunosuppressive drugs, initial encounter; Translations: [Adverse effect of antineoplastic and immunosuppressive drugs, initial encounter] Onset: 08-27-2016 Episodic Maintenance chemotherapy; radiotherapy (11 sources) Patient encounter status; Translations: [Encounter for antineoplastic chemotherapy] Onset: 08-11-2012 Resolved: 08-26-2013 08-26-2013 Chronic Mood disorders (10 sources) Mood disorders Onset: 04-07-2022 Resolved: 10-17-2024 04-07-2022 Other aftercare (2 sources) Patient encounter status; Translations: [Encounter for therapeutic drug level monitoring] Onset: 10-03-2024 10-03-2024 Episodic Other aftercare (1 source) Encounter for therapeutic drug level monitoring; Translations: [Encounter for therapeutic drug level monitoring] Onset: 10-03-2024 Episodic Other and unspecified benign neoplasm (11 sources) History of polyp of colon; Translations: [Personal history of colonic polyps] Onset: 06-16-2020 06-16-2020 Episodic Other nervous system disorders (11 sources) Other symptoms and signs involving cognitive functions and awareness; Translations: [Other signs and symptoms involving cognition] Onset: 08-08-2013 08-08-2013 Episodic Other nervous system disorders (11 sources) Toxic encephalopathy; Translations: [Toxic encephalopathy] Onset: 08-01-2017 09-25-2017 Episodic Other screening for suspected conditions (not mental disorders or infectious disease) (20 sources) Suspected malignancy; Translations: [Encounter for observation for other suspected diseases and conditions ruled out] Onset: 06-22-2013 06-22-2013 Episodic Residual codes; unclassified (1 source) Chills (without fever); Translations: [Chills (without fever)] Onset: 07-27-2024 Episodic Residual codes; unclassified (2 sources) Acquired absence of left breast and nipple; Translations: [Acquired absence of left breast and nipple] Onset: 10-17-2024 Episodic Sprains and strains (11 sources) Strain of muscle of chest wall; Translations: [Strain of muscle and tendon of front wall of thorax, initial encounter] Onset: 07-21-2017 07-21-2017 Episodic Unclassified (1 source) Onset: 10-06-2022 10-06-2022 Results Test Name Value Interpretation Reference Range Facility [facility] 03-20-2025 Free T3 [Mass/Vol] 3.66 pg/mL Normal 2.30-4.20 [facility] Comment on above: Performed By: #### T SH, FT4, FT3 #### [facility] [address] [place] [address] FT4on 03-20-2025 Free T4 [Mass/Vol] 0.89 ng/dL Normal 0.89-1.76 [facility] Comment on above: Result Comment: No te - New Reference Range in effect 20 Performed By: #### T SH, FT4, FT3 #### [facility] [address] [place] [address] TSHon 03-20-2025 TSH 0.411 mIU/mL Low 0.550-4.780 [facility] Comment on above: Performed By: #### T SH, FT4, FT3 #### [facility] [address] [place] [address] Absolute neutrophil countOrd ered By: Tom Simmons on 01-08-2025 Neutrophils (Bld) [#/Vol] 3.0 10*3/uL 2.0-7.7 [facility] Anion gap in Serum or Plasma Ordered By: Tom Simmons on 01-08-2025 Anion gap [Moles/Vol] 13 mmol/L 5- [facility] BUN/creatinine ratioOrdered By: Tom Simmons on 01-08-2025 Urea nitrogen/Creatinine [Mass ratio] 14.6 mg/mg 10- [facility] Basophil percentageOrdered B y: Tom Simmons on 01-08-2025 Basophils/100 WBC (Bld) 0.6 % 0-1 [facility] Bilirubin, totalOrdered By: Tom Simmons on 01-08-2025 Bilirubin [Mass/Vol] 0.37 mg/dL 0.00-1.30 [facility] CBC W/Diff, Automatedon 12-29 Absolute Lymph 1.74 X10 3/uL Normal 0.83-4.51 [facility] Comment on above: Order Comment: CC TO DR. SOW Performed By: #### L [id number], L500.4100, L100.0100, L500.4050, [id number] #### [facility] [address] [place], [address] Absolute Neut 3.0 X10 3/uL Normal 2.0-7.7 [facility] Comment on above: Order Comment: CC TO DR. SOW Performed By: #### L [id number], L500.4100, L100.0100, L500.4050, [id number] #### [facility] [address] [place], [address] Basophils/100 WBC (Bld) 0.6 % Normal 0-1 [facility] Comment on above: Order Comment: CC TO DR. SOW Performed By: #### L [id number], L500.4100, L100.0100, L500.4050, [id number] #### [facility] [address] [place], [address] Eosinophils/100 WBC (Bld) 3.7 % Normal 0-5 [facility] Comment on above: Order Comment: CC TO DR. SOW Performed By: #### L [id number], L500.4100, L100.0100, L500.4050, L506.1001 #### [facility] [address] [place], [address] Erythrocyte distribution width (RBC) [Ratio] 13.6 % Normal 11.6-14.6 [facility] Comment on above: Order Comment: CC TO DR. SOW Performed By: #### L [id number], L500.4100, L100.0100, L500.4050, L506.1001 #### [facility] [address] [place], [address] Hematocrit (Bld) [Volume fraction] 38.9 % Normal 37-47 [facility] Comment on above: Order Comment: CC TO DR. SOW Performed By: #### L [id number], L500.4100, L100.0100, L500.4050, L506.1001 #### [facility] [address] [place], [address] Hemoglobin (Bld) [Mass/Vol] 12.9 g/dL Normal 12.0-15.0 [facility] Comment on above: Order Comment: CC TO DR. SOW Performed By: #### L [id number], L500.4100, L100.0100, L500.4050, L506.1001 #### [facility] [address] [place], [address] IG% 0.200 Normal 0.0-0.9 [facility] Comment on above: Order Comment: CC TO DR. SOW Result Comment: IG% - Immature Granulocytes (promyelocytes, myelocytes and metamyelocytes) > 1% indicates that a LEFT SHIFT is Present. Performed By: #### L [id number], L500.4100, L100.0100, L500.4050, L506.1001 #### [facility] [address] [place], [address] Lymphocytes/100 WBC (Bld) 32.0 % Normal 19-41 [facility] Comment on above: Order Comment: CC TO DR. SOW Performed By: #### L [id number], L500.4100, L100.0100, L500.4050, L506.1001 #### [facility] [address] [place], [address] MCH (RBC) [Entitic mass] 30.1 pg Normal 27.0-32.0 [facility] Comment on above: Order Comment: CC TO DR. SOW Performed By: #### L [id number], L500.4100, L100.0100, L500.4050, L506.1001 #### [facility] [address] [place], [address] MCHC (RBC) [Mass/Vol] 33.2 g/dL Normal 32-36 [facility] Comment on above: Order Comment: CC TO DR. SOW Performed By: #### L [id number], L500.4100, L100.0100, L500.4050, L506.1001 #### [facility] [address] [place], [address] MCV (RBC) [Entitic vol] 90.9 fL Normal 81-99 [facility] Comment on above: Order Comment: CC TO DR. SOW Performed By: #### L [id number], L500.4100, L100.0100, L500.4050, L506.1001 #### [facility] [address] [place], [address] Monocytes/100 WBC (Bld) 8.5 % Normal 0-10 [facility] Comment on above: Order Comment: CC TO DR. SOW Performed By: #### L [id number], L500.4100, L100.0100, L500.4050, L506.1001 #### [facility] [address] [place], [address] Neutrophils/100 WBC (Bld) 55.0 % Normal 47-70 [facility] Comment on above: Order Comment: CC TO DR. SOW Performed By: #### L [id number], L500.4100, L100.0100, L500.4050, L506.1001 #### [facility] [address] [place], [address] Nucleated RBC (Bld) [#/Vol] 0 10*3/uL Normal 0-5 [facility] Comment on above: Order Comment: CC TO DR. SOW Performed By: #### L [id number], L500.4100, L100.0100, L500.4050, L506.1001 #### [facility] [address] [place], [address] Platelet mean volume (Bld) [Entitic vol] 9.6 fL Normal 6.2-12.0 [facility] Comment on above: Order Comment: CC TO DR. SOW Performed By: #### L [id number], L500.4100, L100.0100, L500.4050, L506.1001 #### [facility] [address] [place], [address] Platelets (Bld) [#/Vol] 344 10*3/uL Normal 150-450 [facility] Comment on above: Order Comment: CC TO DR. SOW Performed By: #### L [id number], L500.4100, L100.0100, L500.4050, L506.1001 #### [facility] [address] [place], [address] RBC (Bld) [#/Vol] 4.28 10*6/uL Normal 4.2-5.4 [facility] Comment on above: Order Comment: CC TO DR. SOW Performed By: #### L [id number], L500.4100, L100.0100, L500.4050, L506.1001 #### [facility] [address] [place], [address] RDW SD 45.7 fl High 35.1-43.9 [facility] Comment on above: Order Comment: CC TO DR. SOW Performed By: #### L [id number], L500.4100, L100.0100, L500.4050, L506.1001 #### [facility] [address] [place], [address] WBC (Bld) [#/Vol] 5.4 10*3/uL Normal 4.4-11.0 [facility] Comment on above: Order Comment: CC TO DR. SOW Performed By: #### L [id number], L500.4100, L100.0100, L500.4050, L506.1001 #### [facility] [address] [place], [address] Calculated very low density lipoprotein (VLDL) cholesterol measurementOrdered By: Tom Simmons on 01-08-2025 VLDL Cholesterol 11 mg/dL 5-40 [facility] Carbon dioxide, total [Moles /volume] in Central venous bloodOrdered By: Tom Simmons on 01-08-2025 CO2 [Moles/Vol] 22.4 mmol/L 21.0-32.0 [facility] Chloride assayOrdered By: Christiano Simmons on 01-08-2025 Chloride [Moles/Vol] 98 mmol/L 98-108 [facility] Comprehensive Metabolic Prof ilon 01-08-2025 Albumin [Mass/Vol] 4.5 g/dL Normal 3.4-4.8 [facility] Comment on above: Order Comment: CC TO DR. SOW Performed By: #### L [id number], L500.4100, L100.0100, L500.4050, L506.1001 #### [facility] [address] [place], [address] Albumin/Globulin [Mass ratio] 1.2 {ratio} Normal 0.9-2.4 [facility] Comment on above: Order Comment: CC TO DR. SOW Performed By: #### L [id number], L500.4100, L100.0100, L500.4050, L506.1001 #### [facility] [address] [place], [address] ALK PHOS 74 U/L Normal 35-104 [facility] Comment on above: Order Comment: CC TO DR. SOW Performed By: #### L [id number], L500.4100, L100.0100, L500.4050, L506.1001 #### [facility] [address] [place], [address] ALT [Catalytic activity/Vol] 14 U/L Normal <=34 [facility] Comment on above: Order Comment: CC TO DR. SOW Performed By: #### L [id number], L500.4100, L100.0100, L500.4050, L506.1001 #### [facility] [address] [place], [address] AST [Catalytic activity/Vol] 24 U/L Normal <=31 [facility] Comment on above: Order Comment: CC TO DR. SOW Performed By: #### L [id number], L500.4100, L100.0100, L500.4050, L506.1001 #### [facility] [address] [place], [address] Bilirubin [Mass/Vol] 0.37 mg/dL Normal 0.00-1.30 [facility] [facility] Comment on above: Order Comment: CC TO DR. SOW Performed By: #### L 501.9520, L500.4100, L100.0100, L500.4050, L506.1001 #### [facility] [address] [place], [address] BUN/CRE 14.6 RATIO Normal 10-20 [facility] Comment on above: Order Comment: CC TO DR. SOW Performed By: #### L 501.9520, L500.4100, L100.0100, L500.4050, L506.1001 #### [facility] [address] [place], [address] Calcium [Mass/Vol] 9.7 mg/dL Normal 7.6-11.0 [facility] Comment on above: Order Comment: CC TO DR. SOW Performed By: #### L 501.9520, L500.4100, L100.0100, L500.4050, L506.1001 #### [facility] [address] [place], [address] Chloride [Moles/Vol] 98 mmol/L Normal 98-108 [facility] Comment on above: Order Comment: CC TO DR. SOW Performed By: #### L 501.9520, L500.4100, L100.0100, L500.4050, L506.1001 #### [facility] [address] [place], [address] CO2 [Moles/Vol] 22.4 mmol/L Normal 21.0-32.0 [facility] Comment on above: Order Comment: CC TO DR. SOW Performed By: #### L 501.9520, L500.4100, L100.0100, L500.4050, L506.1001 #### [facility] [address] [place], [address] Creatinine [Mass/Vol] 0.81 mg/dL Normal 0.70-1.20 [facility] Comment on above: Order Comment: CC TO DR. SOW Performed By: #### L 501.9520, L500.4100, L100.0100, L500.4050, L506.1001 #### [facility] [address] [place], [address] GAP 13 Normal 5-15 [facility] Comment on above: Order Comment: CC TO DR. SOW Performed By: #### L 501.9520, L500.4100, L100.0100, L500.4050, L506.1001 #### [facility] [address] [place], [address] GFR/1.73 sq M.predicted among non-blacks MDRD (S/P/Bld) [Vol rate/Area] 81 mL/min/{1.73_m2} Normal >60 [facility] Comment on above: Order Comment: CC TO DR. SOW Result Comment: mL/m in/1.73m2 CKD-EPI Creatinine Equation (2020) Performed By: #### L 501.9520, L500.4100, L100.0100, L500.4050, L506.1001 #### [facility] [address] [place], [address] Globulin (S) [Mass/Vol] 3.8 g/dL Normal 2.2-4.2 [facility] Comment on above: Order Comment: CC TO DR. SOW Performed By: #### L 501.9520, L500.4100, L100.0100, L500.4050, L506.1001 #### [facility] [address] [place], [address] Glucose [Mass/Vol] 104 mg/dL High 70-99 [facility] Comment on above: Order Comment: CC TO DR. SOW Performed By: #### L 501.9520, L500.4100, L100.0100, L500.4050, L506.1001 #### [facility] [address] [place], [address] Potassium [Moles/Vol] 4.2 mmol/L Normal 3.3-5.1 [facility] Comment on above: Order Comment: CC TO DR. SOW Performed By: #### L 501.9520, L500.4100, L100.0100, L500.4050, L506.1001 #### [facility] [address] [place], [address] Sodium [Moles/Vol] 133 mmol/L Normal 133-145 [facility] Comment on above: Order Comment: CC TO DR. SOW Performed By: #### L 501.9520, L500.4100, L100.0100, L500.4050, L506.1001 #### [facility] [address] [place], [address] T PROT 8.3 g/dL Normal 5.9-8.4 [facility] Comment on above: Order Comment: CC TO DR. SOW Performed By: #### L 501.9520, L500.4100, L100.0100, L500.4050, L506.1001 #### [facility] [address] [place], [address] Urea nitrogen [Mass/Vol] 12 mg/dL Normal 4-19 [facility] Comment on above: Order Comment: CC TO DR. SOW Performed By: #### L 501.9520, L500.4100, L100.0100, L500.4050, L506.1001 #### [facility] [address] [place], [address] Eosinophil percentageOrdered By: Tom Simmons on 01-08-2025 Eosinophils/100 WBC (Bld) 3.7 % 0-5 [facility] Erythrocyte distribution wid th ratioOrdered By: Tom Simmons on 01-08-2025 Erythrocyte distribution width (RBC) [Ratio] 13.6 % 11.6-14.6 [facility] Erythrocyte distribution wid th standard deviationOrdered By: Tom Simmons 01-08-2025 Erythrocyte distribution width (RBC) [Entitic vol] 45.7 fL High 35.1-43.9 [facility] GFR/1.73 sq M.predicted kourtney g non-blacks MDRD (S/P/Bld) [Vol rate/Area]Ordered By: Tom Simmons 01-08-2025 Estimated GFR (MDRD) Non-Af Amer 81 >60 [facility] Comment on above: mL/min/1.73m2 CKD-EP I Creatinine Equation (2020) Hematocrit Auto (Bld) [Volum e fraction]Ordered By: Tom Simmons 01-08-2025 Hematocrit (Bld) [Volume fraction] 38.9 % 37-47 [facility] Hemoglobin measurementOrdere d By: Tom Simmons 01-08-2025 Hemoglobin (Bld) [Mass/Vol] 12.9 g/dL 12.0-15.0 [facility] Immature granulocytes/100 WB C Auto (Bld)Ordered By: Tom Simmons on 01-08-2025 Immature granulocytes/100 WBC (Bld) 0.200 % 0.0-0.9 [facility] Comment on above: IG% - Immature Granu locytes (promyelocytes, myelocytes and metamyelocytes) > 1% indicates that a LEFT SHIFT is Present. L506.1001on 01-08-2025 Vitamin D 25-OH 46.1 ng/mL Normal 30-100 [facility] Comment on above: Order Comment: CC TO DR. SOW Result Comment: Yara min D Status Deficiency: <20 ng/mL (50nmol/L) Insufficiency: 20-30 ng/mL (50-75 nmol/L) Sufficiency: 30-100 ng/mL (75-250 nmol/L) Toxicity: >100 ng/mL (>250 nmol/L) Performed By: #### L 501.9520, L500.4100, L100.0100, L500.4050, L506.1001 #### [facility] [address] [place] [place], [address] LDL calc ser/plasOrdered By: Tom Simmons on 01-08-2025 LDL Cholesterol, Calculated 125 mg/dL [facility] Comment on above: Xudlqfgwjd=604-384 m g/dL & Higher Ycjy=503 mg/dL or greater Laboratory - Chemistry and C hemistry - challengeOrdered By: Tom Simmons on 01-08-2025 AST [Catalytic activity/Vol] 24 U/L <32 [facility] Lipid Profileon 01-08-2025 CHOL:HDL 2.26 Normal [facility] Comment on above: Order Comment: CC TO DR. SOW Performed By: #### L 501.9520, L500.4100, L100.0100, L500.4050, L506.1001 #### [facility] [address] [place] [place], [address] Cholesterol [Mass/Vol] 244 mg/dL High <=200 [facility] Comment on above: Order Comment: CC TO DR. SOW Result Comment: Chol esterol level, Desirable <200 mg/dL Borderline high cholesterol 200-239 mg/dL High cholesterol >=240 mg/dL Recommendations of the NCEP Adult Treatment Panel for the following risk-cutoff thresholds for the [place] population. Performed By: #### L 501.9520, L500.4100, L100.0100, L500.4050, L506.1001 #### [facility] [address] [place], [address] Cholesterol in HDL [Mass/Vol] 108 mg/dL Normal [facility] Comment on above: Order Comment: CC TO DR. SOW Result Comment: Nicole onal Cholesterol Education Program (NCEP) guidelines: <40 mg/dL: Low HDL-cholesterol (major risk factor for CHD) >= 60 mg/dL: High HDL-cholesterol (negative risk factor for CHD) HDL-cholesterol is affected by a number of factors, e.g. smoking, exercise, hormones, sex and age. Performed By: #### L 501.9520, L500.4100, L100.0100, L500.4050, L506.1001 #### [facility] [address] [place], [address] Cholesterol in LDL [Mass/Vol] 125 mg/dL Normal [facility] Comment on above: Order Comment: CC TO DR. SOW Result Comment: Bord jbkdif=099-798 mg/dL Higher Jedr=297 mg/dL or greater Performed By: #### L 501.9520, L500.4100, L100.0100, L500.4050, L506.1001 #### [facility] [address] [place], [address] Cholesterol in VLDL [Mass/Vol] 11 mg/dL Normal 5-40 [facility] Comment on above: Order Comment: CC TO DR. SOW Performed By: #### L 501.9520, L500.4100, L100.0100, L500.4050, L506.1001 #### [facility] [address] [place], [address] Triglyceride [Mass/Vol] 54 mg/dL Normal [facility] Comment on above: Order Comment: CC TO DR. SOW Result Comment: The drugs N-Acetylcysteine and Metamizole may falsely depress this assay. Normal range: <150 mg/dL Borderline High: 150-199 mg/dL High: 200-499 mg/dL Very High: >500 mg/dL Performed By: #### L 501.9520, L500.4100, L100.0100, L500.4050, L506.1001 #### [facility] [address] [facility] [place], [address] Lymphocytes Auto (Unsp spec) [#/Vol]Ordered By: Tom Simmons on 01-08-2025 Lymphocytes (Bld) [#/Vol] 1.74 10*3/uL 0.83-4.51 [facility] Lymphocytes/100 WBC Auto (Un sp spec)Ordered By: Tom Simmons on 01-08-2025 Lymphocytes/100 WBC (Bld) 32.0 % 19-41 [facility] MCV (mean corpuscular volume ) determinationOrdered By: Tom Simmons on 01-08-2025 MCV (RBC) [Entitic vol] 90.9 fL 81-99 [facility] Mean corpuscular hemoglobin (MCH) determinationOrdered By: Tom Simmons on 01-08-2025 MCH (RBC) [Entitic mass] 30.1 pg 27.0-32.0 [facility] Mean corpuscular hemoglobin concentration (MCHC) determinationOrdered By: Tom Simmons on 01-08-2025 MCHC (RBC) [Mass/Vol] 33.2 g/dL 32-36 [facility] Mean platelet volume determi nationOrdered By: Tom Simmons on 01-08-2025 Platelet mean volume (Bld) [Entitic vol] 9.6 fL 6.2-12.0 [facility] Monocyte percentageOrdered B y: Tom Simmons on 01-08-2025 Monocytes/100 WBC (Bld) 8.5 % 0-10 [facility] Neutrophil percentageOrdered By: Tom Simmons on 01-08-2025 Neutrophils/100 WBC (Bld) 55.0 % 47-70 [facility] Nucleated red blood cell per centageOrdered By: Tom Simmons on 01-08-2025 Nucleated RBC/100 WBC (Bld) [Ratio] 0 % 0-5 [facility] Platelet countOrdered By: Christiano Simmons on 01-08-2025 Platelets (Bld) [#/Vol] 344 10*3/uL 150-450 [facility] Potassium (Unsp spec) [Mass/ Vol]Ordered By: Tom Simmons on 01-08-2025 Potassium [Moles/Vol] 4.2 mmol/L 3.3-5.1 [facility] RBC Auto (Bld) [#/Vol]Ordere d By: Tom Simmons on 01-08-2025 RBC (Bld) [#/Vol] 4.28 10*6/uL 4.2-5.4 [facility] Screening total cholesterol/ high density lipoprotein (HDL) cholesterol ratioOrdered By: Tom Simmons on 01-08-2025 Cholesterol.total/Anitra sterol in HDL [Mass ratio] 2.26 {ratio} [facility] Serum creatinine measurement (mass/volume)Ordered By: Tom Simmons on 01-08-2025 Creatinine [Mass/Vol] 0.81 mg/dL 0.70-1.20 [facility] Serum globulin measurementOr dered By: Tom Simmons on 01-08-2025 Globulin (S) [Mass/Vol] 3.8 g/dL 2.2-4.2 [facility] Serum glucose measurement (m ass/volume)Ordered By: Tom Simmons on 01-08-2025 Glucose [Mass/Vol] 104 mg/dL High 70-99 [facility] Serum or plasma alanine kemp otransferase (ALT) measurementOrdered By: Tom Simmons on 01-08-2025 ALT [Catalytic activity/Vol] 14 U/L <35 [facility] Serum or plasma albumin alex urement (mass/volume)Ordered By: Tom Simmons on 01-08-2025 Albumin [Mass/Vol] 4.5 g/dL 3.4-4.8 [facility] Serum or plasma albumin/glob ulin mass ratioOrdered By: Tom Simmons 01-08-2025 Albumin/Globulin [Mass ratio] 1.2 {ratio} 0.9-2.4 [facility] Serum or plasma alkaline maria teresa sphatase measurementOrdered By: Tom Simmons on 01-08-2025 ALP [Catalytic activity/Vol] 74 U/L 35-104 [facility] Serum or plasma calcium alex urement (mass/volume)Ordered By: Tom Simmons on 01-08-2025 Calcium [Mass/Vol] 9.7 mg/dL 7.6-11.0 [facility] Serum or plasma cholesterol in HDL measurement (mass/volume)Ordered By: Tom Simmons on 01-08-2025 Cholesterol in HDL [Mass/Vol] 108 mg/dL >40 [facility] Comment on above: National Cholesterol Education Program (NCEP) guidelines:<40 mg/dL: Low HDL-cholesterol (major risk factor for CHD)>= 60 mg/dL: High HDL-cholesterol (negative risk factor for CHD)HDL-cholesterol is affected by a number of factors, e.g. smoking, exercise, hormones, sex and age. Serum or plasma cholesterol measurement (mass/volume)Ordered By: Tom Simmons on 01-08-2025 Cholesterol [Mass/Vol] 244 mg/dL High <201 [facility] Comment on above: Cholesterol level, D esirable <200 mg/dLBorderline high cholesterol 200-239 mg/dLHigh cholesterol >=240 mg/dLRecommendations of the NCEP Adult Treatment Panel for the following risk-cutoff thresholds for the [place] population. Serum or plasma urea nitroge n measurement (mass/volume)Ordered By: Tom Simmons 01-08-2025 Urea nitrogen [Mass/Vol] 12 mg/dL 4-19 [facility] Sodium levelOrdered By: Tom Simmons on 01-08-2025 Sodium [Moles/Vol] 133 mmol/L 133-145 [facility] TSH DL <= 0.005 mIU/L QnOrde red By: Tom Simmons on 01-08-2025 Thyroid Stimulating Hormone (TSH) 1.520 uIU/mL 0.300-4.200 [facility] Thyroid Stim Hormone (TSH)on 01-08-2025 TSH 1.520 uIU/mL Normal 0.300-4.200 [facility] Comment on above: Order Comment: CC TO DR. SOW Performed By: #### L 730.8031, L500.4100, L100.0100, L500.4050, L506.1001 #### [facility] [place], [address] Total proteinOrdered By: Tom Simmons on 01-08-2025 Protein [Mass/Vol] 8.3 g/dL 5.9-8.4 [facility] Triglycerides measurementOrd ered By: Tom Simmons on 01-08-2025 Triglyceride [Mass/Vol] 54 mg/dL <199 [facility] Comment on above: The drugs N-Acetylcy steine and Metamizole may falsely depress this assay. Normal range: <150 mg/dLBorderline High: 150-199 mg/dLHigh: 200-499 mg/dLVery High: >500 mg/dL Vitamin D, 25-hydroxyOrdered By: Tom Simmons on 01-08-2025 Vitamin D 25-Hydroxy 46.1 ng/mL 30-100 [facility] Comment on above: Vitamin D StatusDefi ciency: <20 ng/mL (50nmol/L)Insufficiency: 20-30 ng/mL (50-75 nmol/L)Sufficiency: 30-100 ng/mL (75-250 nmol/L)Toxicity: >100 ng/mL (>250 nmol/L) White blood cell (WBC) count Ordered By: Tom Simmons on 01-08-2025 WBC (Bld) [#/Vol] 5.4 10*3/uL 4.4-11.0 [facility] MAMMO SCREENING WITH CHEPE RI [facility] 10-17-2024 MAMMO SCREENING WITH CHEPE RIGHT EXAM: MAMMO SCREENING WITH CHEPE RIGHT, 10/17/2024 12:39 PM CLINICAL INDICATIONS: Screening. Prior left mastectomy. COMPARISON: 10/12/2023, 10/06/2022, 09/28/2021, 09/15/2020 TECHNIQUE: 3-D MLO and CC digital tomosynthesis images were obtained of the right breast. Synthetic 2-D images were generated from the tomosynthesis data. Computer aided detection was utilized. FINDINGS: Breast Density: The breast is heterogeneously dense, which may obscure small masses. There are no suspicious masses, calcifications, or architectural distortions. IMPRESSION: No mammographic evidence of malignancy. BI-RADS: 1: Negative Recommendation: Routine mammography. Recommendation Laterality: Right The current National Comprehensive Cancer Network and [employer] College [employer] guidelines recommend women undergo a screening mammogram every year over the age of 40 and continue mammographic screening as long as they are in good health. Screening mammography under age 40 may occur for women who are at increased risk for breast cancer. SA Facility: [facility], [address] [place] [address], Table formatting from the original result was not included. MAMMO STANDARD RISK MQSA SITE BEGIN [place] [address] MQSA SITE END [facility] MG Breast - right Screeningo n 10-17-2024 IMPRESSION: No mammographic evidence of malignancy. BI-RADS: 1: Negative Recommendation: Routine mammography. Recommendation Laterality: Right The current National Comprehensive Cancer Network and [employer] guidelines recommend women undergo a screening mammogram every year over the age of 40 and continue mammographic screening as long as they are in good health. Screening mammography under age 40 may occur for women who are at increased risk for breast cancer. [facility] Facility: [facility], [address] [place] [address] OLOGY EXAM: MAMMO SCREENIN G WITH CHEPE RIGHT, 10/17/2024 12:39 PM CLINICAL INDICATIONS: Screening. Prior left mastectomy. COMPARISON: 10/12/2023, 10/06/2022, 09/28/2021, 09/15/2020 TECHNIQUE: 3-D MLO and CC digital tomosynthesis images were obtained of the right breast. Synthetic 2-D images were generated from the tomosynthesis data. Computer aided detection was utilized. FINDINGS: Breast Density: The breast is heterogeneously dense, which may obscure small masses. There are no suspicious masses, calcifications, or architectural distortions. RADIOLOGY Quinton Hartley M D - 10/17/2024 EXAM: MAMMO SCREENING WITH CHEPE RIGHT, 10/17/2024 12:39 PM CLINICAL INDICATIONS: Screening. Prior left mastectomy. COMPARISON: 10/12/2023, 10/06/2022, 09/28/2021, 09/15/2020 TECHNIQUE: 3-D MLO and CC digital tomosynthesis images were obtained of the right breast. Synthetic 2-D images were generated from the tomosynthesis data. Computer aided detection was utilized. FINDINGS: Breast Density: The breast is heterogeneously dense, which may obscure small masses. There are no suspicious masses, calcifications, or architectural distortions. IMPRESSION IMPRESSION: No mammographic evidence of malignancy. BI-RADS: 1: Negative Recommendation: Routine mammography. Recommendation Laterality: Right The current National Comprehensive Cancer Network and [employer] guidelines recommend women undergo a screening mammogram every year over the age of 40 and continue mammographic screening as long as they are in good health. Screening mammography under age 40 may occur for women who are at increased risk for breast cancer. [facility] Facility: [facility] [place], [address] [place] [address], [facility] Radiology Study observation (narrative) [facility] MG Breast - right ScreeningO rdered By: Quinton Hartley on 10-17-2024 [facility] Work Phone: CBC W/Diff, Automatedon 09-1 Absolute Lymph 3.04 X10 3/uL Normal 0.83-4.51 [facility] Comment on above: Performed By: #### L 501.76518, K509.2251, L506.0400 #### [facility] [address] [place], [place], [id number] Absolute Neut 3.5 X10 3/uL Normal 2.0-7.7 [facility] Comment on above: Performed By: #### L 501.26262, L501.9520, L506.0400 #### [facility] [address] [place], [address] Basophils/100 WBC (Bld) 0.5 % Normal 0-1 [facility] Comment on above: Performed By: #### L 501.76480, L501.9520, L506.0400 #### [facility] [address] [place], [address] Eosinophils/100 WBC (Bld) 1.9 % Normal 0-5 [facility] Comment on above: Performed By: #### L 501.29039, L501.9520, L506.0400 #### [facility] [address] [place], [address] Erythrocyte distribution width (RBC) [Ratio] 13.9 % Normal 11.6-14.6 [facility] Comment on above: Performed By: #### L 501.11617, L501.9520, L506.0400 #### [facility] [address] [place], [address] Hematocrit (Bld) [Volume fraction] 39.2 % Normal 37-47 [facility] Comment on above: Performed By: #### L 501.35192, L501.9520, L506.0400 #### [facility] [address] [place], [address] Hemoglobin (Bld) [Mass/Vol] 12.8 g/dL Normal 12.0-15.0 [facility] Comment on above: Performed By: #### L 501.43630, L501.9520, L506.0400 #### [facility] [address] [place], [address] IG% 0.300 Normal 0.0-0.9 [facility] Comment on above: Result Comment: IG% - Immature Granulocytes (promyelocytes, myelocytes and metamyelocytes) > 1% indicates that a LEFT SHIFT is Present. Performed By: #### L 501.99106, L501.9520, L506.0400 #### [facility] [address] [place], [address] Lymphocytes/100 WBC (Bld) 40.9 % Normal 19-41 [facility] Comment on above: Performed By: #### L 501.96355, L501.9520, L506.0400 #### [facility] [address] [place], [address] MCH (RBC) [Entitic mass] 29.3 pg Normal 27.0-32.0 [facility] Comment on above: Performed By: #### L 501.79990, L501.9520, L506.0400 #### [facility] [address] [place], [address] MCHC (RBC) [Mass/Vol] 32.7 g/dL Normal 32-36 [facility] Comment on above: Performed By: #### L 501.32842, L501.9520, L506.0400 #### [facility] [address] [place], [address] MCV (RBC) [Entitic vol] 89.7 fL Normal 81-99 [facility] Comment on above: Performed By: #### L 501.30723, L501.9520, L506.0400 #### [facility] [address] [place], [address] Monocytes/100 WBC (Bld) 9.8 % Normal 0-10 [facility] Comment on above: Performed By: #### L 501.76256, L501.9520, L506.0400 #### [facility] [address] [place], [address] Neutrophils/100 WBC (Bld) 46.6 % Low 47-70 [facility] Comment on above: Performed By: #### L 501.63539, L501.9520, L506.0400 #### [facility] [address] [place], [address] Nucleated RBC (Bld) [#/Vol] 0 10*3/uL Normal 0-5 [facility] Comment on above: Performed By: #### L 501.50677, L501.9520, L506.0400 #### [facility] [address] [place], [address] Platelet mean volume (Bld) [Entitic vol] 9.3 fL Normal 6.2-12.0 [facility] Comment on above: Performed By: #### L 501.92908, L501.9520, L506.0400 #### [facility] [address] [place], [address] Platelets (Bld) [#/Vol] 386 10*3/uL Normal 150-450 [facility] Comment on above: Performed By: #### L 501.84958, L501.9520, L506.0400 #### [facility] [address] [place], [address] RBC (Bld) [#/Vol] 4.37 10*6/uL Normal 4.2-5.4 [facility] Comment on above: Performed By: #### L 501.56735, L501.9520, L506.0400 #### [facility] [address] [place], [address] RDW SD 45.5 fl High 35.1-43.9 [facility] Comment on above: Performed By: #### L 501.48751, L501.9520, L506.0400 #### [facility] [address] [place], [address] WBC (Bld) [#/Vol] 7.4 10*3/uL Normal 4.4-11.0 [facility] Comment on above: Performed By: #### L 501.33634, L501.9520, L506.0400 #### [facility] [address] [place], [address] Comprehensive Metabolic [facility] ilon 07-10-2024 Albumin [Mass/Vol] 3.7 g/dL Normal 3.2-5.0 [facility] Comment on above: Performed By: #### L 501.50183, L501.9520, L506.0400 #### [facility] [address] [place], [address] Albumin/Globulin [Mass ratio] 0.8 {ratio} Low 0.9-2.4 [facility] Comment on above: Performed By: #### L 501.33548, L501.9520, L506.0400 #### [facility] [address] [place], [address] ALK P 67 U/L Normal 45-117 [facility] Comment on above: Performed By: #### L 501.53581, L501.9520, L506.0400 #### [facility] [address] [place], [address] ALT [Catalytic activity/Vol] 26 U/L Normal 13-56 [facility] Comment on above: Performed By: #### L 501.63198, L501.9520, L506.0400 #### [facility] [address] [place], [address] AST [Catalytic activity/Vol] 21 U/L Normal 15-37 [facility] Comment on above: Performed By: #### L 501.46565, L501.9520, L506.0400 #### [facility] [address] [place], [address] Bilirubin [Mass/Vol] 0.40 mg/dL Normal 0.20-1.00 [facility] Comment on above: Result Comment: For patients on eltrombopag therapy, use of Dimension Lamy TBIL is not recommended. Performed By: #### L 501.22161, L501.9520, L506.0400 #### [facility] [address] [place], [address] BUN/CRE 14.1 RATIO Normal 10-20 [facility] Comment on above: Performed By: #### L 501.21922, L501.9520, L506.0400 #### [facility] [address] [place], [address] CA,Total 9.5 mg/dL Normal 8.5-10.1 [facility] Comment on above: Performed By: #### L 501.01001, L501.9520, L506.0400 #### [facility] [address] [place], [address] Chloride [Moles/Vol] 97 mmol/L Low 98-107 [facility] Comment on above: Performed By: #### L 501.85274, L501.9520, L506.0400 #### [facility] [address] [place], [address] CO2 [Moles/Vol] 27.0 mmol/L Normal 21.0-32.0 [facility] Comment on above: Performed By: #### L 501.55204, L501.9520, L506.0400 #### [facility] [address] [place], [address] Creatinine [Mass/Vol] 0.92 mg/dL Normal 0.55-1.02 [facility] Comment on above: Result Comment: The validity of the calculated GFR GFRAA in patients over 70 years has not been determined. Clinical correlation is essential. Performed By: #### L [id number], [id number], L506.0400 #### [facility] [address] [place], [address] EST GFR - AA 79 mL/min Normal >60 [facility] Comment on above: Result Comment: Afri can [place] GFR Calc Performed By: #### L [id number], [id number], L506.0400 #### [facility] [address] [place], [address] GAP 8 Normal 5-15 [facility] Comment on above: Performed By: #### L [id number], [id number], L506.0400 #### [facility] [address] [place], [address] GFR/1.73 sq M.predicted among non-blacks MDRD (S/P/Bld) [Vol rate/Area] 65 mL/min/{1.73_m2} Normal >60 [facility] Comment on above: Result Comment: Non- GFR Calc Performed By: #### L [id number], [id number], L506.0400 #### [facility] [address] [place], [address] Globulin (S) [Mass/Vol] 4.4 g/dL High 2.2-4.2 [facility] Comment on above: Performed By: #### L [id number], [id number], L506.0400 #### [facility] [address] [place], [address] Glucose [Mass/Vol] 99 mg/dL Normal 74-106 [facility] Comment on above: Performed By: #### L [id number], [id number], L506.0400 #### [facility] [address] [place], [address] Potassium [Moles/Vol] 4.0 mmol/L Normal 3.5-5.1 [facility] Comment on above: Performed By: #### L [id number], [id number], L506.0400 #### [facility] [address] [place], [address] Sodium [Moles/Vol] 132 mmol/L Low 136-145 [facility] Comment on above: Performed By: #### L [id number], [id number], L506.0400 #### [facility] [address] [place], [address] T PROT 8.1 g/dL Normal 6.4-8.2 [facility] Comment on above: Performed By: #### L [id number], [id number], L506.0400 #### [facility] [address] [place], [address] Urea nitrogen [Mass/Vol] 13 mg/dL Normal 7-18 [facility] Comment on above: Performed By: #### L [id number], [id number], L506.0400 #### [facility] [address] [place], [address] Free T3on 07-10-2024 Free T3 [Mass/Vol] 3.2 pg/mL Normal 2.18-3.98 [facility] Comment on above: Order Comment: PLEAS E FAX LABS FROM DR. SIMMONS'S ORDER (CMP, TSH AND VITD) TO DR. WEINBERG. N Performed By: #### L [id number], L506.0400 #### [facility] [address] [place], [address] Lipid Profileon 07-10-2024 Cholesterol [Mass/Vol] 228 mg/dL High 200 [facility] Comment on above: Result Comment: <200 mg/dL Desirable 200-240 mg/dL Borderline >240 mg/dL High Risk Performed By: #### L [id number], [id number], L506.0400 #### [facility] [address] [place], [address] Cholesterol in HDL [Mass/Vol] 101 mg/dL Normal [facility] Comment on above: Result Comment: The drugs N-Acetylcysteine and Metamizole may falsely depress this assay. Reference Range HDL <40 mg/dL Low HDL Cholesterol HDL >or= 60 mg/dL High HDL Cholesterol Performed By: #### L [id number], [id number], L506.0400 #### [facility] [address] [place], [address] Cholesterol in LDL [Mass/Vol] 101 mg/dL Normal 0-130 [facility] Comment on above: Performed By: #### L [id number], [id number], L506.0400 #### [facility] [address] [place], [address] Cholesterol in VLDL [Mass/Vol] 26 mg/dL Normal 5-40 [facility] Comment on above: Performed By: #### L [id number], [id number], L506.0400 #### [facility] [address] [place], [address] Triglyceride [Mass/Vol] 128 mg/dL Normal [facility] Comment on above: Result Comment: The drugs N-Acetylcysteine and Metamizole may falsely depress this assay. Serum Triglycerides Reference Interval Normal <150 mg/dL Borderline high 150 - 199 mg/dL High 200 - 499 mg/dL Very High > or = 500 mg/dL Performed By: #### L [id number], [id number], L506.0400 #### [facility] [address] [place], [address] T4 Free Directon 07-10-2024 T4 FREE DIRECT 0.89 ng/dL Normal 0.76-1.46 [facility] Comment on above: Order Comment: PLEAS E FAX LABS FROM DR. SIMMONS'S ORDER (CMP, TSH AND VITD) TO DR. WEINBERG. N Performed By: #### L [id number], L506.0400 #### [facility] [address] [place], [address] Thyroid Stim Hormone (TSH)on 07-10-2024 TSH 0.859 uIU/mL Normal 0.358-3.740 [facility] Comment on above: Performed By: #### L [id number], [id number], L506.0400 #### [facility] [address] [place], [address] M100.678on 07-06-2024 M100.678 Pending SARS-CoV-2 (COVID 19) Negative INFLUENZA A Negative INFLUENZA B Negative RSV PCR Negative Normal [facility] Comment on above: Performed By: #### L [id number], [id number], L506.0400 #### [facility] [place], [address] Free T3on 03-30-2024 Free T3 [Mass/Vol] 2.5 pg/mL Normal 2.18-3.98 [facility] Comment on above: Performed By: #### L [id number], [id number], L506.0400 #### [facility] [address] [place], [address] T4 Free Directon 03-30-2024 T4 FREE DIRECT 0.67 ng/dL Low 0.76-1.46 [facility] Comment on above: Performed By: #### L [id number], [id number], L506.0400 #### [facility] [address] [place], [address] Thyroid Stim Hormone (TSH)on 03-30-2024 TSH 0.40 uIU/mL Normal 0.358-3.74 [facility] Comment on above: Performed By: #### L [id number], [id number], L506.0400 #### [facility] [address] [place], [address] Absolute lymphocyte countOrd ered By: Tom Simmons on 01-05-2024 Lymphocytes Auto (Unsp spec) [#/Vol] 2.01 10*3/uL 0.83-4.51 [facility] Automated lymphocyte count a s percentage of total leukocytesOrdered By: Tom Simmons on 01-05-2024 Lymphocytes/100 WBC Auto (Unsp spec) 29.3 % 19-41 [facility] Basophil percentageOrdered B y: Tom Simmons on 01-05-2024 Basophils/100 WBC (Bld) 0.4 % 0-1 [facility] Bilirubin [Mass/Vol] 0.30 mg/dL 0.20-1.00 [facility] Comment on above: For patients on eltr ombopag therapy, use of Dimension Lamy TBIL is not recommended. Chloride [Moles/Vol] 102 mmol/L 98-107 [facility] Eosinophils/100 WBC (Bld) 2.0 % 0-5 [facility] Glucose [Mass/Vol] 89 mg/dL 74-106 [facility] Hemoglobin (Bld) [Mass/Vol] 12.3 g/dL 12.0-15.0 [facility] Monocytes/100 WBC (Bld) 8.0 % 0-10 [facility] Neutrophils (Bld) [#/Vol] 4.1 10*3/uL 2.0-7.7 [facility] Neutrophils/100 WBC (Bld) 60.2 % 47-70 [facility] Potassium [Moles/Vol] 3.8 mmol/L 3.5-5.1 [facility] Protein [Mass/Vol] 7.7 g/dL 6.4-8.2 [facility] Sodium [Moles/Vol] 136 mmol/L 136-145 [facility] WBC (Bld) [#/Vol] 6.9 10*3/uL 4.4-11.0 [facility] Determination of erythrocyte mean corpuscular volume (MCV)Ordered By: Tom Simmons on 01-05-2024 MCV (RBC) [Entitic vol] 90.3 fL 81-99 [facility] Erythrocyte distribution wid th ratioOrdered By: [facility] on 01-05-2024 Erythrocyte distribution width (RBC) [Ratio] 13.5 % 11.6-14.6 [facility] Erythrocyte distribution wid th standard deviationOrdered By: [facility] 01-[facility] Erythrocyte distribution width (RBC) [Entitic vol] 45.2 fL 35.1-43.9 [facility] Hematocrit Auto (Bld) [Volum e fraction]Ordered By: [facility] on 01-05-2024 Hematocrit (Bld) [Volume fraction] 37.1 % 37-47 [facility] Immature granulocytes/100 WB C Auto (Bld)Ordered By: [facility] 01-05-2024 Immature granulocytes/100 WBC (Bld) 0.100 % 0.0-0.9 [facility] Comment on above: IG% - Immature Granu locytes (promyelocytes, myelocytes and metamyelocytes) > 1% indicates that a LEFT SHIFT is Present. Laboratory - Chemistry and C hemistry - challengeOrdered By: [facility] 01-[facility]24 Albumin/Globulin [Mass ratio] 0.8 {ratio} 0.9-2.4 [facility] ALP [Catalytic activity/Vol] 63 U/L 45-117 [facility] ALT [Catalytic activity/Vol] 23 U/L 13-56 [facility] CO2 [Moles/Vol] 24.0 mmol/L 21.0-32.0 [facility] Globulin (S) [Mass/Vol] 4.2 g/dL 2.2-4.2 [facility] Magnesium [Mass/Vol] 2.1 mg/dL 1.6-2.6 [facility] Urea nitrogen/Creatinine [Mass ratio] 8.4 mg/mg 10-20 [facility] - Hematology and Cell countsOrdered By: [facility] 01-05-2024 MCH (RBC) [Entitic mass] 29.9 pg 27.0-32.0 [facility] MCHC (RBC) [Mass/Vol] 33.2 g/dL 32-36 [facility] Nucleated RBC/100 WBC (Bld) [Ratio] 0 % 0-5 [facility] Platelet mean volume (Bld) [Entitic vol] 9.5 fL 6.2-12.0 [facility] Platelets (Bld) [#/Vol] 337 10*3/uL 150-450 [facility] No Panel InformationOrdered By: Tom Simmons on 01-05-2024 Estimated GFR (MDRD) Amer 89 mL/min >60 [facility] Comment on above: GFR Calc Estimated GFR (MDRD) Non-Af Amer 74 mL/min >60 [facility] Comment on above: Non- GFR Calc Vitamin D 25-Hydroxy 66.7 ng/mL [facility] Comment on above: Vitamin D 25(OH) Sta tus Range Deficiency <20 ng/mL (50nmol/L) Insufficiency 20 - 30 ng/mL (50 - 75 nmol/L) Sufficiency 30 - 100 ng/mL (75 - 250 nmol/L) Toxicity >100 ng/mL (>250 nmol/L) RBC Auto (Bld) [#/Vol]Ordere d By: Tom Simmons on 01-05-2024 RBC (Bld) [#/Vol] 4.11 10*6/uL 4.2-5.4 [facility] Serum or plasma calcium alex urement (mass/volume)Ordered By: Tom Simmons on 01-05-2024 Calcium [Mass/Vol] 9.1 mg/dL 8.5-10.1 [facility] Serum or plasma creatinine m easurement (mass/volume)Ordered By: Tom Simmons on 01-05-2024 Creatinine [Mass/Vol] 0.83 mg/dL 0.55-1.02 [facility] Comment on above: The validity of the calculated GFR & GFRAA in patients over 70 years has not been determined. Clinical correlation is essential. Serum or plasma thyroid stim ulating hormone (TSH) measurement (units/volume)Ordered By: Tom Simmons on 01-05-2024 TSH Qn 0.18 uIU/mL 0.358-3.74 [facility] Serum or plasma urea nitroge n measurement (mass/volume)Ordered By: Tom Simmons on 01-05-2024 Urea nitrogen [Mass/Vol] 7 mg/dL 7-18 [facility] Thin prep Papanicolaou smear with manual screeningOrdered By: Tom Simmons on 01-05-2024 Thin prep Papanicolaou smear with manual screening 3.5 g/dL 3.2-5.0 [facility] Thin prep Papanicolaou smear with manual screening 21 U/L 15-37 [facility] Thin prep Papanicolaou smear with manual screening 10 5-15 [facility] - Microbiology an d Antimicrobial susceptibilityOrdered By: Tom Simmons on 11-04-2023 SARS-CoV-2 (COVID-19) RNA DONNIE+probe Ql (Unsp spec) [facility] MG Breast - right Screeningo n 10-12-2023 IMPRESSION: No mammographic evidence of malignancy. BI-RADS: 2: Benign Recommendation: Routine mammography. Recommendation Laterality: Right The current National Comprehensive Cancer Network and [employer] guidelines recommend women undergo a screening mammogram every year over the age of 40 and continue mammographic screening as long as they are in good health. Screening mammography under age 40 may occur for women who are at increased risk for breast cancer. OLOGY EXAM: MAMMO SCREENIN G WITH CHEPE RIGHT, 10/12/2023 15:18 PM CLINICAL [...] no suspicious masses, calcifications, or architectural distortions. RADIOLOGY Taisha Brandt DO - 10/12/2023 EXAM: MAMMO SCREENING WITH CHEPE RIGHT, 10/12/2023 [...] The current National Comprehensive Cancer Network and [employer] guidelines recommend women undergo a screening mammogram every year over the age of 40 and continue mammographic screening as long as they are in good health. Screening mammography under age 40 may occur for women who are at increased risk for breast cancer. [facility] Radiology Study observation (narrative) [facility] MG Breast - right ScreeningO rdered By: Taisha Brandt on 10-12-2023 [facility] Work Phone: Basophil percentageOrdered B y: Josh Weinberg on 07-13-2023 Bilirubin [Mass/Vol] 0.30 mg/dL 0.20-1.00 [facility] Comment on above: For patients on eltr ombopag therapy, use of Dimension Lamy TBIL is not recommended. Chloride [Moles/Vol] 104 mmol/L 98-107 [facility] Glucose [Mass/Vol] 98 mg/dL 74-106 [facility] Potassium [Moles/Vol] 4.0 mmol/L 3.5-5.1 [facility] Protein [Mass/Vol] 8.0 g/dL 6.4-8.2 [facility] Sodium [Moles/Vol] 136 mmol/L 136-145 [facility] - Chemistry and C hemistry - challengeOrdered By: Josh Weinberg on 07-13-2023 ALP [Catalytic activity/Vol] 81 U/L 45-117 [facility] ALT [Catalytic activity/Vol] 23 U/L 13-56 [facility] CO2 [Moles/Vol] 28.0 mmol/L 21.0-32.0 [facility] Free T4 [Mass/Vol] 0.75 ng/dL 0.76-1.46 [facility] Globulin (S) [Mass/Vol] 4.5 g/dL 2.2-4.2 [facility] Urea nitrogen/Creatinine [Mass ratio] 11.3 mg/mg 10-20 [facility] No Panel InformationOrdered By: Josh Weinberg on 07-13-2023 Estimated GFR (MDRD) Amer 83 mL/min >60 [facility] Comment on above: GFR Calc Estimated GFR (MDRD) Non-Af Amer 69 mL/min >60 [facility] Comment on above: Non- GFR Calc Free Triiodothyronine (T3) pg/dL 2.5 pg/mL 2.18-3.98 [facility] Thyroid Stimulating Hormone (TSH) 0.26 uIU/mL 0.358-3.74 [facility] Vitamin D 25-Hydroxy 86.0 ng/mL [facility] Comment on above: Vitamin D 25(OH) Sta tus Range Deficiency <20 ng/mL (50nmol/L) Insufficiency 20 - 30 ng/mL (50 - 75 nmol/L) Sufficiency 30 - 100 ng/mL (75 - 250 nmol/L) Toxicity >100 ng/mL (>250 nmol/L) Serum or plasma albumin alex urement (mass/volume)Ordered By: Josh Weinberg on 07-13-2023 Albumin [Mass/Vol] 3.5 g/dL 3.2-5.0 [facility] Serum or plasma albumin/glob ulin mass ratioOrdered By: Josh Weinberg on 07-13-2023 Albumin/Globulin [Mass ratio] 0.8 {ratio} 0.9-2.4 [facility] Serum or plasma calcium alex urement (mass/volume)Ordered By: Josh Weinberg on 07-13-2023 Calcium [Mass/Vol] 9.1 mg/dL 8.5-10.1 [facility] Serum or plasma creatinine m easurement (mass/volume)Ordered By: Josh Weinberg on 07-13-2023 Creatinine [Mass/Vol] 0.89 mg/dL 0.55-1.02 [facility] Comment on above: The validity of the calculated GFR & GFRAA in patients over 70 years has not been determined. Clinical correlation is essential. Serum or plasma urea nitroge n measurement (mass/volume)Ordered By: Josh Weinberg on 07-13-2023 Urea nitrogen [Mass/Vol] 10 mg/dL 7-18 [facility] Thin prep Papanicolaou smear with manual screeningOrdered By: Josh Weinberg on 07-13-2023 Thin prep Papanicolaou smear with manual screening 19 U/L 15-37 [facility] Thin prep Papanicolaou smear with manual screening 4 5-15 [facility] Absolute lymphocyte countOrd ered By: Tom Simmons on 07-07-2023 Lymphocytes Auto (Unsp spec) [#/Vol] 1.76 10*3/uL 0.83-4.51 [facility] Basophil percentageOrdered B y: Tom Simmons on 07-07-2023 Basophils/100 WBC (Bld) 0.7 % 0-1 [facility] Bilirubin [Mass/Vol] 0.30 mg/dL 0.20-1.00 [facility] Comment on above: For patients on eltr ombopag therapy, use of Dimension Lamy TBIL is not recommended. Chloride [Moles/Vol] 104 mmol/L 98-107 [facility] Eosinophils/100 WBC (Bld) 4.2 % 0-5 [facility] Glucose [Mass/Vol] 85 mg/dL 74-106 [facility] Neutrophils (Bld) [#/Vol] 2.0 10*3/uL 2.0-7.7 [facility] Neutrophils/100 WBC (Bld) 45.2 % 47-70 [facility] Potassium [Moles/Vol] 3.9 mmol/L 3.5-5.1 [facility] Protein [Mass/Vol] 7.9 g/dL 6.4-8.2 [facility] Sodium [Moles/Vol] 136 mmol/L 136-145 [facility] WBC (Bld) [#/Vol] 4.5 10*3/uL 4.4-11.0 [facility] Blood erythrocytes count (nu mber/volume)Ordered By: Tom Simmons on 07-07-2023 RBC (Bld) [#/Vol] 4.32 10*6/uL 4.2-5.4 [facility] Blood hemoglobin measurement (mass/volume)Ordered By: Tom Simmons on 07-07-2023 Hemoglobin (Bld) [Mass/Vol] 12.5 g/dL 12.0-15.0 [facility] Blood lymphocytes/100 leukoc ytesOrdered By: Tom Troy on 07-07-2023 Lymphocytes/100 WBC (Bld) 39.2 % 19-41 [facility] Blood monocytes/100 leukocyt esOrdered By: Tom Simmons on 07-07-2023 Monocytes/100 WBC (Bld) 10.5 % 0-10 [facility] Blood platelet mean volumeOr dered By: Tom Simmons on 07-07-2023 Platelet mean volume (Bld) [Entitic vol] 9.8 fL 6.2-12.0 [facility] Determination of erythrocyte mean corpuscular volume (MCV)Ordered By: Tom Simmons on 07-07-2023 MCV (RBC) [Entitic vol] 91.4 fL 81-99 [facility] Hematocrit Auto (Bld) [Volum e fraction]Ordered By: Tom Troy on 07-07-2023 Hematocrit (Bld) [Volume fraction] 39.5 % 37-47 [facility] - Chemistry and C hemistry - challengeOrdered By: Tom Simmons on 07-07-2023 ALP [Catalytic activity/Vol] 72 U/L 45-117 [facility] ALT [Catalytic activity/Vol] 21 U/L 13-56 [facility] CO2 [Moles/Vol] 26.0 mmol/L 21.0-32.0 [facility] Globulin (S) [Mass/Vol] 4.3 g/dL 2.2-4.2 [facility] Urea nitrogen/Creatinine [Mass ratio] 11.5 mg/mg 10-20 [facility] - Hematology and Cell countsOrdered By: Tom Simmons on 07-07-2023 Erythrocyte distribution width (RBC) [Entitic vol] 46.5 fL 35.1-43.9 [facility] Erythrocyte distribution width (RBC) [Ratio] 13.7 % 11.6-14.6 [facility] Immature granulocytes/100 WBC (Bld) 0.200 % 0.0-0.9 [facility] Comment on above: IG% - Immature Granu locytes (promyelocytes, myelocytes and metamyelocytes) > 1% indicates that a LEFT SHIFT is Present. MCH (RBC) [Entitic mass] 28.9 pg 27.0-32.0 [facility] Nucleated RBC/100 WBC (Bld) [Ratio] 0 % 0-5 [facility] MCHC Auto (RBC) [Mass/Vol]Or dered By: Tom Simmons on 07-07-2023 MCHC (RBC) [Mass/Vol] 31.6 g/dL 32-36 [facility] No Panel InformationOrdered By: Tom Simmons on 07-07-2023 Estimated GFR (MDRD) Amer 85 mL/min >60 [facility] Comment on above: GFR Calc Estimated GFR (MDRD) Non-Af Amer 70 mL/min >60 [facility] Comment on above: Non- GFR Calc Thyroid Stimulating Hormone (TSH) 0.17 uIU/mL 0.358-3.74 [facility] Platelets bldOrdered By: Tom Simmons on 07-07-2023 Platelets (Bld) [#/Vol] 335 10*3/uL 150-450 [facility] Serum or plasma albumin alex urement (mass/volume)Ordered By: Tom Simmons on 07-07-2023 Albumin [Mass/Vol] 3.6 g/dL 3.2-5.0 [facility] Serum or plasma albumin/glob ulin mass ratioOrdered By: Tom Simmons 07-07-2023 Albumin/Globulin [Mass ratio] 0.8 {ratio} 0.9-2.4 [facility] Serum or plasma calcium alex urement (mass/volume)Ordered By: Tom Simmons on 07-07-2023 Calcium [Mass/Vol] 9.2 mg/dL 8.5-10.1 [facility] Serum or plasma creatinine m easurement (mass/volume)Ordered By: Tom Simmons on 07-07-2023 Creatinine [Mass/Vol] 0.87 mg/dL 0.55-1.02 [facility] Comment on above: The validity of the calculated GFR & GFRAA in patients over 70 years has not been determined. Clinical correlation is essential. Serum or plasma urea nitroge n measurement (mass/volume)Ordered By: Tom Simmons on 07-07-2023 Urea nitrogen [Mass/Vol] 10 mg/dL 7-18 [facility] Thin prep Papanicolaou smear with manual screeningOrdered By: Tom Simmons on 07-07-2023 Thin prep Papanicolaou smear with manual screening 17 U/L 15-37 [facility] Thin prep Papanicolaou smear with manual screening 6 5-15 [facility] Absolute lymphocyte countOrd ered By: Tom Simmons on 12-28-2022 Lymphocytes Auto (Unsp spec) [#/Vol] 2.08 10*3/uL 0.83-4.51 [facility] Basophil percentageOrdered B y: Tom Simmons on 12-28-2022 Basophils/100 WBC (Bld) 0.6 % 0-1 [facility] Bilirubin [Mass/Vol] 0.30 mg/dL 0.20-1.00 [facility] Comment on above: For patients on eltr ombopag therapy, use of Dimension Lamy TBIL is not recommended. Chloride [Moles/Vol] 102 mmol/L 98-107 [facility] Eosinophils/100 WBC (Bld) 4.1 % 0-5 [facility] Glucose [Mass/Vol] 82 mg/dL 74-106 [facility] Neutrophils (Bld) [#/Vol] 3.3 10*3/uL 2.0-7.7 [facility] Neutrophils/100 WBC (Bld) 52.7 % 47-70 [facility] Potassium [Moles/Vol] 3.6 mmol/L 3.5-5.1 [facility] Protein [Mass/Vol] 8.1 g/dL 6.4-8.2 [facility] Sodium [Moles/Vol] 136 mmol/L 136-145 [facility] WBC (Bld) [#/Vol] 6.3 10*3/uL 4.4-11.0 [facility] Blood erythrocytes count (nu mber/volume)Ordered By: Tom Simmons on 12-28-2022 RBC (Bld) [#/Vol] 4.27 10*6/uL 4.2-5.4 [facility] Blood hemoglobin measurement (mass/volume)Ordered By: [facility] on 12-28-2022 Hemoglobin (Bld) [Mass/Vol] 12.7 g/dL 12.0-15.0 [facility] Blood lymphocytes/100 leukoc ytesOrdered By: [facility] on 12-28-2022 Lymphocytes/100 WBC (Bld) 33.2 % 19-41 [facility] Blood monocytes/100 leukocyt esOrdered By: [facility] on 12-28-2022 Monocytes/100 WBC (Bld) 9.1 % 0-10 [facility] Blood platelet mean volumeOr dered By: [facility] on 12-28-2022 Platelet mean volume (Bld) [Entitic vol] 10.0 fL 6.2-12.0 [facility] Determination of erythrocyte mean corpuscular volume (MCV)Ordered By: [facility] on 12-28-2022 MCV (RBC) [Entitic vol] 91.3 fL 81-99 [facility] Hematocrit Auto (Bld) [Volum e fraction]Ordered By: [facility] on 12-28-2022 Hematocrit (Bld) [Volume fraction] 39.0 % 37-47 [facility] - Chemistry and C hemistry - challengeOrdered By: [facility] 12-28-2022 ALP [Catalytic activity/Vol] 88 U/L 45-117 [facility] ALT [Catalytic activity/Vol] 25 U/L 13-56 [facility] CO2 [Moles/Vol] 25.0 mmol/L 21.0-32.0 [facility] Globulin (S) [Mass/Vol] 4.3 g/dL 2.2-4.2 [facility] Urea nitrogen/Creatinine [Mass ratio] 12.5 mg/mg 10-20 [facility] - Hematology and Cell countsOrdered By: [facility] 12-28-2022 Erythrocyte distribution width (RBC) [Entitic vol] 46.2 fL 35.1-43.9 [facility] Erythrocyte distribution width (RBC) [Ratio] 13.7 % 11.6-14.6 [facility] Immature granulocytes/100 WBC (Bld) 0.300 % 0.0-0.9 [facility] Comment on above: IG% - Immature Granu locytes (promyelocytes, myelocytes and metamyelocytes) > 1% indicates that a LEFT SHIFT is Present. MCH (RBC) [Entitic mass] 29.7 pg 27.0-32.0 [facility] Nucleated RBC/100 WBC (Bld) [Ratio] 0 % 0-5 [facility] MCHC Auto (RBC) [Mass/Vol]Or dered By: Tom Simmons on 12-28-2022 MCHC (RBC) [Mass/Vol] 32.6 g/dL 32-36 [facility] No Panel InformationOrdered By: Tom Simmons on 12-28-2022 Estimated GFR (MDRD) Amer 76 mL/min >60 [facility] Comment on above: GFR Calc Estimated GFR (MDRD) Non-Af Amer 63 mL/min >60 [facility] Comment on above: Non- GFR Calc Thyroid Stimulating Hormone (TSH) 0.29 uIU/mL 0.358-3.74 [facility] Vitamin D 25-Hydroxy 63.2 ng/mL [facility] Comment on above: Vitamin D 25(OH) Sta tus Range Deficiency <20 ng/mL (50nmol/L) Insufficiency 20 - 30 ng/mL (50 - 75 nmol/L) Sufficiency 30 - 100 ng/mL (75 - 250 nmol/L) Toxicity >100 ng/mL (>250 nmol/L) Platelets bldOrdered By: Tom Simmons on 12-28-2022 Platelets (Bld) [#/Vol] 344 10*3/uL 150-450 [facility] Serum or plasma albumin alex urement (mass/volume)Ordered By: Tom Simmons on 12-28-2022 Albumin [Mass/Vol] 3.8 g/dL 3.2-5.0 [facility] Serum or plasma albumin/glob ulin mass ratioOrdered By: Tom Simmons on 12-28-2022 Albumin/Globulin [Mass ratio] 0.9 {ratio} 0.9-2.4 [facility] Serum or plasma calcium alex urement (mass/volume)Ordered By: Tom Simmons on 12-28-2022 Calcium [Mass/Vol] 9.4 mg/dL 8.5-10.1 [facility] Serum or plasma creatinine m easurement (mass/volume)Ordered By: Tom Simmons on 12-28-2022 Creatinine [Mass/Vol] 0.96 mg/dL 0.55-1.02 [facility] Comment on above: The validity of the calculated GFR & GFRAA in patients over 70 years has not been determined. Clinical correlation is essential. Serum or plasma urea nitroge n measurement (mass/volume)Ordered By: Tom Simmons on 12-28-2022 Urea nitrogen [Mass/Vol] 12 mg/dL 7-18 [facility] Thin prep Papanicolaou smear with manual screeningOrdered By: Tom Simmons on 12-28-2022 Thin prep Papanicolaou smear with manual screening 21 U/L 15-37 [facility] Thin prep Papanicolaou smear with manual screening 9 5-15 [facility] Basophil percentageOrdered B y: Dr. Weinberg on 11-26-2022 Bilirubin [Mass/Vol] 0.30 mg/dL 0.20-1.00 [facility] Comment on above: For patients on eltr ombopag therapy, use of Dimension Lamy TBIL is not recommended. Chloride [Moles/Vol] 106 mmol/L 98-107 [facility] Glucose [Mass/Vol] 100 mg/dL 74-106 [facility] Comment on above: Fasting Glucose resu lt from 100 to 125 mg/dL suggests IMPAIRED HOMEOSTASIS per A.D.A. criteria. Potassium [Moles/Vol] 4.2 mmol/L 3.5-5.1 [facility] Protein [Mass/Vol] 7.9 g/dL 6.4-8.2 [facility] Sodium [Moles/Vol] 139 mmol/L 136-145 [facility] Laboratory - Chemistry and C hemistry - challengeOrdered By: Dr. Weinberg on 11-26-2022 ALP [Catalytic activity/Vol] 86 U/L 45-117 [facility] ALT [Catalytic activity/Vol] 21 U/L 13-56 [facility] CO2 [Moles/Vol] 26.0 mmol/L 21.0-32.0 [facility] Free T4 [Mass/Vol] 0.72 ng/dL 0.76-1.46 [facility] Globulin (S) [Mass/Vol] 4.4 g/dL 2.2-4.2 [facility] Magnesium [Mass/Vol] 2.4 mg/dL 1.6-2.6 [facility] Urea nitrogen/Creatinine [Mass ratio] 20.3 mg/mg 10-20 [facility] No Panel InformationOrdered By: Dr. Weinberg on 11-26-2022 Estimated GFR (MDRD) Amer 89 mL/min >60 [facility] Comment on above: GFR Calc Estimated GFR (MDRD) Non-Af Amer 73 mL/min >60 [facility] Comment on above: Non- GFR Calc Free Triiodothyronine (T3) pg/dL 2.6 pg/mL 2.18-3.98 [facility] Thyroid Stimulating Hormone (TSH) 0.16 uIU/mL 0.358-3.74 [facility] Serum or plasma albumin alex urement (mass/volume)Ordered By: Dr. Weinberg on 11-26-2022 Albumin [Mass/Vol] 3.5 g/dL 3.2-5.0 [facility] Serum or plasma albumin/glob ulin mass ratioOrdered By: Dr. Weinberg on 11-26-2022 Albumin/Globulin [Mass ratio] 0.8 {ratio} 0.9-2.4 [facility] Serum or plasma calcium alex urement (mass/volume)Ordered By: Dr. Weinberg on 11-26-2022 Calcium [Mass/Vol] 9.0 mg/dL 8.5-10.1 [facility] Serum or plasma creatinine m easurement (mass/volume)Ordered By: Dr. Weinberg on 11-26-2022 Creatinine [Mass/Vol] 0.84 mg/dL 0.55-1.02 [facility] Comment on above: The validity of the calculated GFR & GFRAA in patients over 70 years has not been determined. Clinical correlation is essential. Serum or plasma urea nitroge n measurement (mass/volume)Ordered By: Dr. Weinberg on 11-26-2022 Urea nitrogen [Mass/Vol] 17 mg/dL 7-18 [facility] Thin prep Papanicolaou smear with manual screeningOrdered By: Dr. Weinberg on 11-26-2022 Thin prep Papanicolaou smear with manual screening 20 U/L 15-37 [facility] Thin prep Papanicolaou smear with manual screening 7 5-15 [facility] MG Breast - right Screeningo n 10-06-2022 IMPRESSION: No mammographic evidence of malignancy. BI-RADS: 2: Benign Recommendation: Routine mammography. Recommendation Laterality: Right The current National Comprehensive Cancer Network and [employer] College [employer] guidelines recommend women undergo a screening mammogram every year over the age of 40 and continue mammographic screening as long as they are in good health. Screening mammography under age 40 may occur for women who are at increased risk for breast cancer. I personally viewed and interpreted these images and I have reviewed and approved this report. OLOGY EXAM: MAMMO SCREENIN G WITH CHEPE RIGHT, 10/06/2022 10:46 AM CLINICAL INDICATIONS: Screening. 62-year-old female with history of left breast IDC status post mastectomy, chemotherapy and radiation. COMPARISON: Mammograms dated September 28, 2021, September 15, 2020 and September 11, 2019. TECHNIQUE: 2-D MLO and CC views were obtained of the right breast. 3-D MLO and CC digital tomosynthesis images were also acquired. Computer aided detection was utilized. FINDINGS: The breast is heterogeneously dense, which may obscure small masses. Benign appearing calcifications are noted. Patient is status post left mastectomy. There are no suspicious masses, calcifications, or architectural distortions. RADIOLOGY Juliette Downing DO - 10/06/2022 EXAM: MAMMO SCREENING WITH CHEPE RIGHT, 10/06/2022 10:46 AM CLINICAL INDICATIONS: Screening. 62-year-old female with history of left breast IDC status post mastectomy, chemotherapy and radiation. COMPARISON: Mammograms dated September 28, 2021, September 15, 2020 and September 11, 2019. TECHNIQUE: 2-D MLO and CC views were obtained of the right breast. 3-D MLO and CC digital tomosynthesis images were also acquired. Computer aided detection was utilized. FINDINGS: The breast is heterogeneously dense, which may obscure small masses. Benign appearing calcifications are noted. Patient is status post left mastectomy. There are no suspicious masses, calcifications, or architectural distortions. IMPRESSION IMPRESSION: No mammographic evidence of malignancy. BI-RADS: 2: Benign Recommendation: Routine mammography. Recommendation Laterality: Right The current National Comprehensive Cancer Network and [employer] College [employer] guidelines recommend women undergo a screening mammogram every year over the age of 40 and continue mammographic screening as long as they are in good health. Screening mammography under age 40 may occur for women who are at increased risk for breast cancer. I personally viewed and interpreted these images and I have reviewed and approved this report. [facility] Radiology Study observation (narrative) [facility] MG Breast - right ScreeningO rdered By: Juliette Downing on 10-06-2022 [facility] Work Phone: Laboratory - Chemistry and C hemistry - challengeon 08-06-2022 Cobalamin (Vitamin B12) [Mass/Vol] 358 pg/mL 211-911 [facility] Work Phone: Free T4 [Mass/Vol] 0.72 ng/dL 0.76-1.46 [facility] Work Phone: No Panel Informationon 08-06 Free Triiodothyronine (T3) pg/dL 2.5 pg/mL 2.18-3.98 [facility] Work Phone: Thyroid Stimulating Hormone (TSH) 0.90 uIU/mL 0.358-3.74 [facility] Work Phone: Absolute lymphocyte counton 06-29-2022 Lymphocytes Auto (Unsp spec) [#/Vol] 1.74 10*3/uL 0.83-4.51 [facility] Work Phone: Basophil percentageon 2021 Basophils/100 WBC (Bld) 0.4 % 0-1 [facility] Work Phone: Bilirubin [Mass/Vol] 0.40 mg/dL 0.20-1.00 [facility] Work Phone: Comment on above: For patients on eltr ombopag therapy, use of Dimension Lamy TBIL is not recommended. Chloride [Moles/Vol] 102 mmol/L 98-107 [facility] Work Phone: Eosinophils/100 WBC (Bld) 4.4 % 0-5 [facility] Work Phone: Glucose [Mass/Vol] 94 mg/dL 74-106 [facility] Work Phone: Neutrophils (Bld) [#/Vol] 2.9 10*3/uL 2.0-7.7 [facility] Work Phone: Neutrophils/100 WBC (Bld) 53.4 % 47-70 [facility] Work Phone: Potassium [Moles/Vol] 4.0 mmol/L 3.5-5.1 [facility] Work Phone: Protein [Mass/Vol] 8.0 g/dL 6.4-8.2 [facility] Work Phone: Sodium [Moles/Vol] 135 mmol/L 136-145 [facility] Work Phone: WBC (Bld) [#/Vol] 5.4 10*3/uL 4.4-11.0 [facility] Work Phone: Blood erythrocytes count (nu mber/volume)on 06-29-2022 RBC (Bld) [#/Vol] 4.31 10*6/uL 4.2-5.4 [facility] Work Phone: Blood hemoglobin measurement (mass/volume)on 06-29-2022 Hemoglobin (Bld) [Mass/Vol] 12.7 g/dL 12.0-15.0 [facility] Work Phone: Blood lymphocytes/100 leukoc yteson 06-29-2022 Lymphocytes/100 WBC (Bld) 32.2 % 19-41 [facility] Work Phone: Blood monocytes/100 leukocyt eson 06-29-2022 Monocytes/100 WBC (Bld) 9.4 % 0-10 [facility] Work Phone: Blood platelet mean volumeon 06-29-2022 Platelet mean volume (Bld) [Entitic vol] 9.9 fL 6.2-12.0 [facility] Work Phone: [phone] Determination of erythrocyte mean corpuscular volume (MCV)on 06-29-2022 MCV (RBC) [Entitic vol] 92.3 fL 81-99 [facility] Work Phone: [phone] Hematocrit Auto (Bld) [Volum e fraction]on 06-29-2022 Hematocrit (Bld) [Volume fraction] 39.8 % 37-47 [facility] Work Phone: [phone] Laboratory - Chemistry and C hemistry - challengeon 06-29-2022 ALP [Catalytic activity/Vol] 82 U/L 45-117 [facility] Work Phone: [phone] ALT [Catalytic activity/Vol] 25 U/L 13-56 [facility] Work Phone: [phone] CO2 [Moles/Vol] 25.0 mmol/L 21.0-32.0 [facility] Work Phone: [phone] Globulin (S) [Mass/Vol] 4.3 g/dL 2.2-4.2 [facility] Work Phone: [phone] Urea nitrogen/Creatinine [Mass ratio] 9.0 mg/mg 10-20 [facility] Work Phone: [phone] Laboratory - Hematology and Cell countson 06-29-2022 Erythrocyte distribution width (RBC) [Entitic vol] 47.9 fL 35.1-43.9 [facility] Work Phone: [phone] Erythrocyte distribution width (RBC) [Ratio] 14.0 % 11.6-14.6 [facility] Work Phone: [phone] Immature granulocytes/100 WBC (Bld) 0.200 % 0.0-0.9 [facility] Work Phone: [phone] Comment on above: IG% - Immature Granu locytes (promyelocytes, myelocytes and metamyelocytes) > 1% indicates that a LEFT SHIFT is Present. MCH (RBC) [Entitic mass] 29.5 pg 27.0-32.0 [facility] Work Phone: [phone] Nucleated RBC/100 WBC (Bld) [Ratio] 0 % 0-5 [facility] Work Phone: [phone] MCHC Auto (RBC) [Mass/Vol]on 06-29-2022 MCHC (RBC) [Mass/Vol] 31.9 g/dL 32-36 [facility] Work Phone: [phone] No Panel Informationon 06-29 Estimated GFR (MDRD) Amer 83 mL/min >60 [facility] Work Phone: [phone] Comment on above: GFR Calc Estimated GFR (MDRD) Non-Af Amer 69 mL/min >60 [facility] Work Phone: [phone] Comment on above: Non- GFR Calc Thyroid Stimulating Hormone (TSH) 0.40 uIU/mL 0.358-3.74 [facility] Work Phone: [phone] Vitamin D 25-Hydroxy 76.0 ng/mL [facility] Work Phone: [phone] Comment on above: Vitamin D 25(OH) Sta tus Range Deficiency <20 ng/mL (50nmol/L) Insufficiency 20 - 30 ng/mL (50 - 75 nmol/L) Sufficiency 30 - 100 ng/mL (75 - 250 nmol/L) Toxicity >100 ng/mL (>250 nmol/L) Platelets bldon 06-29-2022 Platelets (Bld) [#/Vol] 362 10*3/uL 150-450 [facility] Work Phone: [phone] Serum or plasma albumin alex urement (mass/volume)on 06-29-2022 Albumin [Mass/Vol] 3.7 g/dL 3.2-5.0 [facility] Work Phone: [phone] Serum or plasma albumin/glob ulin mass ratioon 06-29-2022 Albumin/Globulin [Mass ratio] 0.9 {ratio} 0.9-2.4 [facility] Work Phone: [phone] Serum or plasma calcium alex urement (mass/volume)on 06-29-2022 Calcium [Mass/Vol] 8.9 mg/dL 8.5-10.1 [facility] Work Phone: Serum or plasma creatinine m easurement (mass/volume)on 06-29-2022 Creatinine [Mass/Vol] 0.89 mg/dL 0.55-1.02 [facility] Work Phone: Comment on above: The validity of the calculated GFR & GFRAA in patients over 70 years has not been determined. Clinical correlation is essential. Serum or plasma urea nitroge n measurement (mass/volume)on 06-29-2022 Urea nitrogen [Mass/Vol] 8 mg/dL 7-18 [facility] Work Phone: [phone] Thin prep Papanicolaou smear with manual screeningon 06-29-2022 Thin prep Papanicolaou smear with manual screening 22 U/L 15-37 [facility] Work Phone: Thin prep Papanicolaou smear with manual screening 8 5-15 [facility] Work Phone: Basophil percentageon 2021 Bilirubin [Mass/Vol] 0.40 mg/dL 0.20-1.00 [facility] Work Phone: Comment on above: For patients on eltr ombopag therapy, use of Dimension Lamy TBIL is not recommended. Chloride [Moles/Vol] 103 mmol/L 98-107 [facility] Work Phone: [phone] Glucose [Mass/Vol] 108 mg/dL 74-106 [facility] Work Phone: [phone] Comment on above: Fasting Glucose resu lt from 100 to 125 mg/dL suggests IMPAIRED HOMEOSTASIS per A.D.A. criteria. Potassium [Moles/Vol] 4.0 mmol/L 3.5-5.1 [facility] Work Phone: [phone] Protein [Mass/Vol] 8.0 g/dL 6.4-8.2 [facility] Work Phone: [phone] Sodium [Moles/Vol] 137 mmol/L 136-145 [facility] Work Phone: [phone] Laboratory - Chemistry and C hemistry - challengeon 05-19-2022 ALP [Catalytic activity/Vol] 82 U/L 45-117 [facility] Work Phone: [phone] ALT [Catalytic activity/Vol] 20 U/L 13-56 [facility] Work Phone: [phone] CO2 [Moles/Vol] 27.0 mmol/L 21.0-32.0 [facility] Work Phone: [phone] Free T4 [Mass/Vol] 0.83 ng/dL 0.76-1.46 [email or web address] r Work Phone: [phone] Globulin (S) [Mass/Vol] 4.4 g/dL 2.2-4.2 [facility] Work Phone: [phone] Urea nitrogen/Creatinine [Mass ratio] 15.7 mg/mg 10- [facility] Work Phone: [phone] No Panel Informationon 05-19 Estimated GFR (MDRD) Amer 98 mL/min >60 [facility] Work Phone: Comment on above: GFR Calc Estimated GFR (MDRD) Non-Af Amer 81 mL/min >60 [facility] Work Phone: Comment on above: Non- GFR Calc Free Triiodothyronine (T3) pg/dL 2.8 pg/mL 2.18-3.98 [facility] Work Phone: [phone] Thyroid Stimulating Hormone (TSH) 0.06 uIU/mL 0.358-3.74 [facility] Work Phone: [phone] Vitamin D 25-Hydroxy 72.8 ng/mL [facility] Work Phone: [phone] Comment on above: Vitamin D 25(OH) Sta tus Range Deficiency <20 ng/mL (50nmol/L) Insufficiency 20 - 30 ng/mL (50 - 75 nmol/L) Sufficiency 30 - 100 ng/mL (75 - 250 nmol/L) Toxicity >100 ng/mL (>250 nmol/L) Serum or plasma albumin alex urement (mass/volume)on 05-19-2022 Albumin [Mass/Vol] 3.6 g/dL 3.2-5.0 [facility] Work Phone: Serum or plasma albumin/glob ulin mass ratioon 05-19-2022 Albumin/Globulin [Mass ratio] 0.8 {ratio} 0.9-2.4 [facility] Work Phone: Serum or plasma calcium alex urement (mass/volume)on 05-19-2022 Calcium [Mass/Vol] 9.3 mg/dL 8.5-10.1 [facility] Work Phone: Serum or plasma creatinine m easurement (mass/volume)on 05-19-2022 Creatinine [Mass/Vol] 0.77 mg/dL 0.55-1.02 [facility] Work Phone: Comment on above: The validity of the calculated GFR & GFRAA in patients over 70 years has not been determined. Clinical correlation is essential. Serum or plasma urea nitroge n measurement (mass/volume)on 05-19-2022 Urea nitrogen [Mass/Vol] 12 mg/dL 7-18 [facility] Work Phone: Thin prep Papanicolaou smear with manual screeningon 05-19-2022 Thin prep Papanicolaou smear with manual screening 20 U/L 15-37 [facility] Work Phone: Thin prep Papanicolaou smear with manual screening 7 5-15 [facility] Work Phone: BASIC METABOLIC PANELon 05-31 Anion gap [Moles/Vol] 11 mmol/L Normal 10 - 20 [facility] Comment on above: Performed By: #### B MP ####[address] [address] Calcium [Mass/Vol] 9.0 mg/dL Normal 8.6 - 10.3 [facility] Comment on above: Performed By: #### B MP ####[address] [address] Chloride [Moles/Vol] 107 mmol/L Normal 98 - 107 [facility] Comment on above: Performed By: #### B MP ####[address] [address] Creatinine [Mass/Vol] 0.74 mg/dL Normal 0.50 - 1.05 [facility] Comment on above: Performed By: #### B MP ####[address] [address] GFR- AM. >60 Normal >60 [facility] Comment on above: Result Comment: CALC ULATIONS OF ESTIMATED GFR ARE PERFORMED USING THE MDRD STUDY EQUATION FOR THE IDMS-TRACEABLE CREATININE METHODS. CLIN CHEM 2007;53:766-72 Performed By: #### B MP ####[place] [id number] GFR-NON AM. >60 Normal >60 [facility] Comment on above: Performed By: #### B MP ####[address] [address] Glucose [Mass/Vol] 96 mg/dL Normal 74 - 99 [facility] Comment on above: Performed By: #### B MP ####[address] [address] HCO3 (Bld) [Moles/Vol] 22 mmol/L Normal 21 - 32 [facility] Comment on above: Performed By: #### B MP ####[address] [address] Potassium [Moles/Vol] 4.0 mmol/L Normal 3.5 - 5.3 [facility] Comment on above: Performed By: #### B MP ####[address] [address] Sodium [Moles/Vol] 136 mmol/L Normal 136 - 145 [facility] Comment on above: Performed By: #### B MP ####[address] [address] Urea nitrogen [Mass/Vol] 8 mg/dL Normal 6 - 23 [facility] Comment on above: Performed By: #### B MP ####[place] [id number] Discharge Planning [id number] 0 06-09-2020 Discharge Planning Note2 Discharge Planning: Planned Dispositionhome Discharge DestinationHome AMPAC < 20no Anticipated Discharge [id number] Discharge Planning Care Transitions Note: 06-09-[address] routine screen for d/c needs re: this [employer], 59yo, female Pt under OBS. SW met with Pt. Pt was friendly and in good spirits. SW reviewed CT role in d/c planning and reviewed the Going Home Checklist. Pt reports she resides with her spouse. Pt is independent with ADLs and IADLs. Pt states her spouse is supportive. Pt indicates no home-going needs. Pt is very eager for d/c, and anticipates she will be able to return home today. Pt's AMPAC is 24--appropriate for home-going with no needs. Plan: Pt home with spouse when ready. No further CT assist required. DUSTY Wilson, FRUIT CULLER Assessment: Discharge Planning Assessment [id number] Primary Contact Name and NumberSctkathryn Rock [phone] (1) Stated Reason for Admissionpassing out(1) [place]rived [place] (1) Lives Withspouse(1) Living Arrangementshouse(1) Resource/Environmental Concernsnone(1) Anticipated Transition [place](1) Services Anticipated at Transitionnone(1) Discharge Documentation: Discharge/Transfer Date/[id number] 16:40 Discharge Modeambulatory Discharged Accompanied Byspouse Transportation Methodprivate car Valuables/Medications/Be longings Returnedyes Final DispositionHome Electronic Signatures: Radha Barker (RN) (Signed 09-Jun-2020 16:40) Authored: Discharge Planning Note2 Cordelia Avery (DIE FITTER) (Signed 09-Jun-2020 11:53) Authored: Discharge Planning Note2 Last Updated: 09-Jun-2020 16:40 by Radha Barker (KASHIF) References: 1. Data Referenced From Patient Profile - Adult v2 08-Jun-2020 10:30 [facility] Discharge [id number] Discharge Profile2 Discharge Orders: Anticipated Discharge Date: Anticipated Discharge [id number] Activity: activity as tolerated. Diet: Dietregular Provider FINAL REVIEW of Orders: Final Review: Final Review of Medication Reconciliation and Orders Completedby Physician Reviewing ProviderMino Molina MD at 09-Jun-2020 15:56:38 Appointments: Follow-Up Appointment 01: Physician/Dept/ServiceDr Phillip Simmons Reason for ReferralHospital follow Call to Schedule in1 week [id number] [place] Phone [phone] CommentsPatient prefers to make own appointment Electronic Signatures: Mino Alexandre) (Signed 09-Jun-2020 15:56) Authored: Discharge Orders, Provider FINAL REVIEW of Orders, Appointments, Gold Form - Helmet Coverer Summary Joslyn Mercedes (PCNA/Cassandra Architect) (Signed 09-Jun-2020 16:27) Authored: Appointments Last Updated: 09-Jun-2020 16:27 by Joslyn Mercedes (PCNA/Cassandra Architect) [facility] NR MRA HEAD W/O Con 06-09-20 NR MRA HEAD W/O C Patient Name: MILLA ROCK STUDY: MRI BRAIN WO; MRA HEAD W/O C; 06/09/2020 8:12 am INDICATION: syncope. COMPARISON: None. ACCESSION NUMBER(S): [id number]; [id number] ORDERING CLINICIAN: MINO CORTEZ TECHNIQUE: Axial T2, FLAIR, DWI, gradient echo T2 and sagittal and coronal T1 weighted images of brain were acquired. Additionally, MRA of the intracranial vasculature was performed. FINDINGS: MRI of the brain: The signal intensity within the brain is normal. There is no diffusion evidence of acute or subacute ischemic change. There is no gradient echo image evidence of intracranial hemorrhage. There is no evidence of focal mass effect or edema. The ventricular system is within normal limits. MRA of the intracranial vasculature: There is no evidence of aneurysm, focal stenosis, or major branch occlusion. IMPRESSION: Unremarkable examination. Electronically signed by: SHAHLA WALDROP MD [facility] NR MRI BRAIN WOon 06-09-2020 NR MRI BRAIN WO Patient Name: MILLA ROCK STUDY: MRI BRAIN WO; MRA HEAD W/O C; 06/09/2020 8:12 am INDICATION: syncope. COMPARISON: None. ACCESSION NUMBER(S): [id number]; [id number] ORDERING CLINICIAN: MINO CORTEZ TECHNIQUE: Axial T2, FLAIR, DWI, gradient echo T2 and sagittal and coronal T1 weighted images of brain were acquired. Additionally, MRA of the intracranial vasculature was performed. FINDINGS: MRI of the brain: The signal intensity within the brain is normal. There is no diffusion evidence of acute or subacute ischemic change. There is no gradient echo image evidence of intracranial hemorrhage. There is no evidence of focal mass effect or edema. The ventricular system is within normal limits. MRA of the intracranial vasculature: There is no evidence of aneurysm, focal stenosis, or major branch occlusion. IMPRESSION: Unremarkable examination. Electronically signed by: SHAHLA WALDROP MD [facility] Admission Risk Screen - Adul ton 06-08-2020 Admission Risk Screen - Adult Allergies: Allergies: sulfamethizole: Unknown Bee Stings: Unknown Patient Verification: New W ID Band Applied in my Departmentno Type of ID Patient is WearingW wristband, but not applied here Patient Transferred from Other Facility ([facility], [facility],etc)no Patient Identity Verified Bypatient ID Band FULL Name, include Middle, spelling matches patient's ID used for verificationyes ID Band Matches Patient ID used for Verficationyes ID Band MRN Matches EMR MRNyes Visitor Restriction: Coronavirus Visitor Restriction: Reasonable restrictions to in-person visitors will be observed due to current coronavirus pandemic. Travel History: COVID-19 Screening Completedno exposure or symptoms Advance Directive: Advance Directive/DNRno Advance Directive Information Giveninformation requested from admitting Falls Screen: Type of Assessmentadmission Risk for Injury Associated with Fallnone Fall Risk Conclusionmoderate falls risk with low risk for associated injury [place] Safety InterventionsWDL *orient to call system *instruct to call for assistance before getting out of bed *non-slip footwear when patient is out of bed *call damon in reach *personal items and telephone in reach *physically safe environment (no spills or clutter) *bed in lowest position with wheels locked *appropriate side rails in place *room/bathroom lighting operational, light cord in reach *appropriate signage on door Family Violence Screen: Are you or have you been threatened or abused physically, emotionally, or sexually by anyoneno Has anyone ever threatened to hurt your family or your petsno Does anyone try to keep you from having/contacting other friends or doing things outside your homeno Do you feel UNSAFE going back to the place where you are livingno Do you feel anyone has exploited or taken advantage of you financially or of your personal propertyno Clinical assessment: Are there any apparent signs of injuries/behaviors that could be related to abuse/neglectno Social Service Consult for abuse/neglect needed this visitno Functional Screen: Functional Screen: In the recent/past 2-4 weeks, patient or family have noticedno issues that require a speech/language consult at this time [facility]- Basic Mobility/Daily Activity: Patient baseline bedboundno Turning from your back to your side while in a flat bed without using bedrailsnone Moving from lying on your back to sitting on the side of a flat bed without using bedrailsnone Moving to and from bed to chair (including a wheelchair)none Standing up from a chair using your arms (e.g. wheelchair or bedside chair) none To walk in hospital roomnone Climbing 3-5 steps with railingnone [facility] Basic Mobility- Total Score24 Putting on and taking off regular lower body clothingnone Bathing (including washing, rinsing, drying)none Putting on and taking off regular upper body clothingnone Toileting, which includes using toilet, bedpan or urinalnone Taking care of personal grooming such as brushing teethnone Eating Mealsnone [facility] Daily Activity- Total Score24 Learning Assessment (Patient): Patient is Able to be Assessed for Learningyes Factors Influencing Readiness to Learnacuteness of illness Factors that Impact Ability to Learncognitive limitations Devices/Methods Used to Communicatenone Learning Preferencesskill demonstration; audio; verbal instruction; individual instruction Cultural Considerationsnone Developmental Considerationsnone Faith Considerationsnone Learning Assessment (Other Learner): Other learner availableno Suicide/Depression Screen: During the past month, have you often been bothered by feeling down, depressed or hopelessno During the past month, have you often had little interest or pleasure in doing thingsno Have you had any thoughts of harming yourselfno Have you had any thoughts of harming anyone elseno (1) Adult Nutrition Screen: Have you recently lost weight without tryingno Have you been eating poorly because of a decreased appetiteno Malnutrition Screening Tool Score0 Malnutrition Screening Tool RiskMST = 0 or 1 Not at risk. Eating well with little or no weight loss Nutrition Consult needed this visitno Can Patient Participate in Room Serviceyes Patient requires Paper Dishes/Plastic Utensilsno Pain Screen: Pain Scalenumerical 0-10 Pain Scale Educationteaching provided Current Pain Level0 = None Acceptable Pain Level3 = Mild Expression of Pain (nonverbal)none Chronic Painyes Usual Pain Rating at Rest2 Spiritual Screen: Are there any cultural, spiritual, orthodox practices/values/needs that are important for us to knowno Do you want a visit/item from [facility] Would you like your Barking Machine Feeder/Parachute Mender notifiedno CAGE: Is this an injured patient at a Trauma Center ([facility] [place] /[place]): no (2) Vaccinations: Vaccination - Influenza Vaccination Screen: Is it flu season (between and February 10)No Vaccination - Pneumonia Vaccination Screen: Patient has received a previous pneumonia vaccine:no/unknown... Immunocompetent persons with underlying chronic conditions or reside in care home care facilitiesnone of these conditions Persons with Functional or Anatomic Asplenianone of these conditions Immunocompromised Personsnone of these conditions Pneumonia vaccine NOT indicated due to:patient DOES NOT have a condition that indicates vaccination Amado: Skin - Amado Scale: Amado: Sensory Perception (response to environment)(4) no impairment Amado: Moisture (degree skin exposed to moisture)(4) rarely moist Amado: Activity (ability to walk)(4) walks frequently Amado: Mobility (amount/control of body movement)(4) no limitation Amado: Nutrition (quality of food intake)(3) adequate Amado: Friction and Shear(3) no apparent problem Amado: Score22 Significant Indicatiors: Significant Indicators: Complete Pressure Injury: Pressure Injury Present on Admissionno Electronic Signatures: Marilee Velazco (KASHIF) (Signed 08-Jun-2020 10:53) Authored: Admission Risk Screens, Vaccinations, Amado, Pressure Injury Last Updated: 08-Jun-2020 10:53 by Marilee Vleazco ([email or web address]) References: 1. Data Referenced From Triage - ED 08-Jun-2020 01:36 2. Data Referenced From Risk Screen - Adult Emergency 08-Jun-2020 01:45 Normal [facility] CBC AND DIFFERENTIALon 06-08 Basophils (Bld) [#/Vol] 0.00 10*3/uL Normal 0.00 - 0.1 0 [facility] Comment on above: Performed By: #### C BCDF #### [address] [address] Basophils/100 WBC (Bld) 0.6 % Normal 0.0 - 2.0 [facility] Comment on above: Performed By: #### C BCDF #### [address] [address] Eosinophils (Bld) [#/Vol] 0.30 10*3/uL Normal 0.00 - 0.70 [facility] Comment on above: Performed By: #### C BCDF #### [address] [address] Eosinophils/100 WBC (Bld) 4.2 % Normal 0.0 - 6.0 [facility] Comment on above: Performed By: #### C BCDF #### [address] [address] Erythrocyte distribution width (RBC) [Ratio] 13.2 % Normal 11.5 - 14.5 [facility] Comment on above: Performed By: #### C BCDF #### [address] [address] Hematocrit (Bld) [Volume fraction] 37.5 % Normal 36.0 - 46.0 [facility] Comment on above: Performed By: #### C BCDF #### [address] [address] Hemoglobin (Bld) [Mass/Vol] 12.5 g/dL Normal 12.0 - 16.0 [facility] Comment on above: Performed By: #### C BCDF #### [address] [address] Lymphocytes (Bld) [#/Vol] 1.50 10*3/uL Normal 1.20 - 4.80 [facility] Comment on above: Performed By: #### C BCDF #### [address] [address] Lymphocytes/100 WBC (Bld) 24.8 % Normal 13.0 - 44.0 [facility] Comment on above: Performed By: #### C BCDF #### [address] [place] [address] MCHC (RBC) [Mass/Vol] 33.3 g/dL Normal 32.0 - 36.0 [facility] Comment on above: Performed By: #### C BCDF #### [address] [address] MCV (RBC) [Entitic vol] 92 fL Normal 80 - 100 [facility] Comment on above: Performed By: #### C BCDF #### [address] [address] Monocytes (Bld) [#/Vol] 0.50 10*3/uL Normal 0.10 - 1.0 0 [facility] Comment on above: Performed By: #### C BCDF #### [address] [address] Monocytes/100 WBC (Bld) 7.8 % Normal 2.0 - 10.0 [facility] Comment on above: Performed By: #### C BCDF #### [address] [address] Neutrophils (Bld) [#/Vol] 3.90 10*3/uL Normal 1.20 - 7.70 [facility] Comment on above: Result Comment: Perc ent differential counts (%) should be interpreted in the context of the absolute cell counts (cells/L). Performed By: #### C BCDF #### [address] [address] Neutrophils/100 WBC (Bld) 62.6 % Normal 40.0 - 80.0 [facility] Comment on above: Performed By: #### C BCDF #### [address] [address] Platelets (Bld) [#/Vol] 298 10*3/uL Normal 150 - 450 [facility] Comment on above: Performed By: #### C BCDF #### [address] [address] RBC (Bld) [#/Vol] 4.08 x10E12/L Normal 4.00 - 5.20 [facility] Comment on above: Performed By: #### C BCDF #### [address] [address] WBC (Bld) [#/Vol] 6.2 10*3/uL Normal 4.4 - 11.3 [facility] Comment on above: Performed By: #### C BCDF #### [place] [id number] COMPREHENSIVE PANELon 2019 Albumin [Mass/Vol] 4.0 g/dL Normal 3.4 - 5.0 [facility] Comment on above: Performed By: #### C MP #### [address] [address] ALP [Catalytic activity/Vol] 60 U/L Normal 33 - 110 [facility] Comment on above: Performed By: #### C MP #### [address] [address] ALT [Catalytic activity/Vol] 11 U/L Normal 7 - 45 [facility] Comment on above: Result Comment: Nunu ents treated with Sulfasalazine may generate falsely decreased results for ALT. Performed By: #### C MP #### [address] [address] Anion gap [Moles/Vol] 11 mmol/L Normal 10 - 20 [facility] Comment on above: Performed By: #### C MP #### [address] [address] AST [Catalytic activity/Vol] 18 U/L Normal 9 - 39 [facility] Comment on above: Performed By: #### C MP #### [address] [address] Bilirubin [Mass/Vol] 0.3 mg/dL Normal 0.0 - 1.2 [facility] Comment on above: Performed By: #### C MP #### [address] [address] Calcium [Mass/Vol] 9.3 mg/dL Normal 8.6 - 10.3 [facility] Comment on above: Performed By: #### C MP #### [address] [address] Chloride [Moles/Vol] 98 mmol/L Normal 98 - 107 [facility] Comment on above: Performed By: #### C MP #### [address] [address] Creatinine [Mass/Vol] 0.78 mg/dL Normal 0.50 - 1.05 [facility] Comment on above: Performed By: #### C MP #### [address] [address] GFR- AM. >60 Normal >60 [facility] Comment on above: Result Comment: CALC ULATIONS OF ESTIMATED GFR ARE PERFORMED USING THE MDRD STUDY EQUATION FOR THE IDMS-TRACEABLE CREATININE METHODS. CLIN CHEM 2007;53:766-72 Performed By: #### C MP #### [address] [address] GFR-NON AM. >60 Normal >60 [facility] Comment on above: Performed By: #### C MP #### [address] [address] Glucose [Mass/Vol] 108 mg/dL High 74 - 99 [facility] Comment on above: Performed By: #### C MP #### [address] [address] HCO3 (Bld) [Moles/Vol] 26 mmol/L Normal 21 - 32 [facility] Comment on above: Performed By: #### C MP #### [address] [address] Potassium [Moles/Vol] 4.2 mmol/L Normal 3.5 - 5.3 [facility] Comment on above: Performed By: #### C MP #### [address] [address] Protein [Mass/Vol] 6.9 g/dL Normal 6.4 - 8.2 [facility] Comment on above: Performed By: #### C MP #### [address] [address] Sodium [Moles/Vol] 131 mmol/L Low 136 - 145 [facility] Comment on above: Performed By: #### C MP #### [place] [address] Urea nitrogen [Mass/Vol] 10 mg/dL Normal 6 - 23 [facility] Comment on above: Performed By: #### C MP #### [place] [address] CORONAVIRUS 2019 BY PCRon CORONAVIRUS 2019,PCR NOT DETECTED Normal Not Detected [facility] Comment on above: Result Comment: This assay is designed to detect the N2 and E genes of SARS-CoV-2 via nucleic acid amplification. A Not Detected result does not preclude COVID-19 infection since the adequacy of sample collection and/or low viral burden may result in presence of viral nucleic acids below the clinical sensitivity of this test method. Fact sheet for providers: www.fda.gov/media/444379/download Fact sheet for patients: www.fda.gov/media/031335/download This test has received FDA Emergency Use Authorization (EUA) and has been verified by [facility]. This test is only authorized for the duration of time that circumstances exist to justify the authorization of the emergency use of in vitro diagnostic tests for the detection of SARS-CoV-2 virus and/or diagnosis of COVID-19 infection under section 564(b)(1) of the Act, 21 U.S.C. 360bbb-3(b)(1), unless the authorization is terminated or revoked sooner. [facility] is certified under CLIA-88 as qualified to perform high complexity testing. Testing is performed in the [facility] laboratory located at [address] [place] [address]. Performed By: #### C OV19 ####[place] [address] Lab Specimen Source Nasal, Nasopharyngeal Normal [facility] Comment on above: Performed By: #### C OV19 ####[place] [address] CT C-SPINE WO CONTRASTon CT C-SPINE WO CONTRAST Patient Name: MILLA ROCK STUDY: CT HEAD WO CONTRAST; CT C-SPINE WO CONTRAST; 06/08/2020 5:44 am; 06/08/2020 5:43 am INDICATION: head injury LOC; Head injury. COMPARISON: None. ACCESSION NUMBER(S): [id number]; [id number] ORDERING CLINICIAN: CINDY GALLAGHER TECHNIQUE: Noncontrast CT images of the head with coronal and sagittal reconstructions. Axial noncontrast CT images of the cervical spine with coronal and sagittal reconstructed images. FINDINGS: EXTRACRANIAL SOFT TISSUES: Swelling in the left frontal scalp and adjacent to the left nasal bones. CALVARIUM: No depressed skull fracture. No destructive osseous lesion. PARANASAL SINUSES/MASTOIDS: The visualized paranasal sinuses and mastoid air cells are aerated. HEMORRHAGE: No acute intracranial hemorrhage. BRAIN PARENCHYMA: Flores-white matter interfaces are preserved. No mass effect or midline shift. VENTRICLES and EXTRA-AXIAL SPACES: Normal size. OTHER FINDINGS: None. CERVICAL SPINE: ALIGNMENT: Normal. VERTEBRAE: No acute loss of vertebral body height. DISC SPACE: Disc space narrowing at C5/C6 SPINAL CANAL: Multilevel facet and uncovertebral arthropathy with varying degrees of neural foraminal stenosis. PREVERTEBRAL SOFT TISSUES: No prevertebral soft tissue swelling. LUNG APICES: Left pleural thickening/scarring. OTHER FINDINGS: None. IMPRESSION: Swelling in the left frontal scalp and adjacent to the left nasal bones compatible with contusion in the setting of trauma. No underlying fracture. No acute intracranial hemorrhage, mass effect or midline shift. Cervical spondylosis without acute loss of vertebral body height or traumatic malalignment. Electronically signed by: NANO VERDUZCO MD [facility] CT HEAD WO CONTRASTon 2019 CT HEAD WO CONTRAST Patient Name: MILLA ROCK STUDY: CT HEAD WO CONTRAST; CT C-SPINE WO CONTRAST; 06/08/2020 5:44 am; 06/08/2020 5:43 am INDICATION: head injury LOC; Head injury. COMPARISON: None. ACCESSION NUMBER(S): [id number]; [id number] ORDERING CLINICIAN: CINDY GALLAGHER TECHNIQUE: Noncontrast CT images of the head with coronal and sagittal reconstructions. Axial noncontrast CT images of the cervical spine with coronal and sagittal reconstructed images. FINDINGS: EXTRACRANIAL SOFT TISSUES: Swelling in the left frontal scalp and adjacent to the left nasal bones. CALVARIUM: No depressed skull fracture. No destructive osseous lesion. PARANASAL SINUSES/MASTOIDS: The visualized paranasal sinuses and mastoid air cells are aerated. HEMORRHAGE: No acute intracranial hemorrhage. BRAIN PARENCHYMA: Flores-white matter interfaces are preserved. No mass effect or midline shift. VENTRICLES and EXTRA-AXIAL SPACES: Normal size. OTHER FINDINGS: None. CERVICAL SPINE: ALIGNMENT: Normal. VERTEBRAE: No acute loss of vertebral body height. DISC SPACE: Disc space narrowing at C5/C6 SPINAL CANAL: Multilevel facet and uncovertebral arthropathy with varying degrees of neural foraminal stenosis. PREVERTEBRAL SOFT TISSUES: No prevertebral soft tissue swelling. LUNG APICES: Left pleural thickening/scarring. OTHER FINDINGS: None. IMPRESSION: Swelling in the left frontal scalp and adjacent to the left nasal bones compatible with contusion in the setting of trauma. No underlying fracture. No acute intracranial hemorrhage, mass effect or midline shift. Cervical spondylosis without acute loss of vertebral body height or traumatic malalignment. Electronically signed by: NANO VERDUZCO MD [facility] EMR ADDONon 06-08-2020 ADDON CONFIRMATION REQUEST REC'D [facility] Comment on above: Performed By: #### E MRAD ####[place] [address] History and Physicalon 06-08 History and Physical History of Present Illness: HPI: MILLA ROCK is a 59 year old Female Who presented to the emergency room after having a syncopal episode. On presentation, blood pressure 126/82, heart rate 79, respiratory rate 18, afebrile, and saturation O2 99% on room air. Pertinent findings on blood work-up; sodium 131, TSH 0.25 but free T4 0.96. CT of the head showed swelling in the left frontal scalp and adjacent to the left nasal bones compatible with contusion. There is also cervical spondylosis but no acute fractures of the vertebral body. Patient was given in the emergency room 75 mg oral levothyroxine and then admitted to the medical service for further investigation and management. Patient said that she was in her usual state of health when today and was brushing her teeth in front of the mirror in her bathroom, she suddenly felt that everything is blacking out around her and she lost consciousness and fell to the floor. She did not wake up until her came in and woke her up. According to her, when she woke up she was confused and she was nauseated but did not vomit. This is the first time she experiences such an event in her life. She did have fainting in the past when she was younger from upper respiratory tract infections. Prior to the fall, she did not experience any lightheadedness or dizziness or blurry vision or nausea or palpitations or shortness of breath or vomiting. After the fall, she did not have any incontinence or memory loss. Patient denies having any history of vertigo or hearing loss or tinnitus. Denies having any problems with loss of balance or unsteady gait. 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 She recently had adjustment of her levothyroxine dose for her Graves' disease. Review of Systems: 10 systems were reviewed and were negative except for those noted in the history of present illness. Past medical history: Hypothyroidism, fibromyalgia, Graves' disease, peptic ulcer disease, breast cancer status post chemotherapy, vitamin D deficiency Past surgical history:Mastectomy Social history: Nonsmoker, no alcohol abuse Family history: has been reviewed and there are no findings pertinent to the chief complaint Allergies: sulfamethizole: Unknown Bee Stings: Unknown Medications Prior to Admission: methylphenidate 5 mg oral tablet: 1.5 tab in am and at noon, 0.5 tab around 4 pm DULoxetine 20 mg oral delayed release capsule: 1 cap(s) orally once a day Vitamin D2 50,000 intl units (1.25 mg) oral capsule: 1 cap(s) orally once a week levothyroxine 75 mcg (0.075 mg) oral tablet: 1 tab(s) orally once a day traZODone 50 mg oral tablet: 25 milligram(s) orally once a day (at bedtime) liothyronine 5 mcg oral tablet: 2.5 milligram(s) orally once a day Melatonin 5 mg oral tablet: 1 tab(s) orally once a day (at bedtime), As Needed calcium (as citrate)-vitamin D 500 mg-200 intl units (5 mcg) oral tablet, chewable: 1 tab(s) orally once a day magnesium oxide 400 mg (240 mg elemental magnesium) oral tablet: 1 tab(s) orally once a day, As Needed. Objective: Objective Information: T SIMONEPSpO2 [id number]/6599% Date/Time06/08 15: 15: 15: 15: 15:34 Range(36.5C - 36.9C ) (73 - 82 ) (16 - 18 ) (114 - 133 )/ (65 - 82 ) (97% - 99% ) Highest temp of 36.9 C was recorded at 06/08 15:34 Pain reported at 06/08 10:54: 2 = Mild Physical Exam by System: Constitutional: awake/alert/oriented x3, not in acute distress, [...] or rhonchi Cardiovascular: Regular, rate and rhythm, no murmurs, 2+ equal pulses of the extremities Gastrointestinal: nondistended, positive bowel sounds, soft, non-tender, no rebound tenderness or guarding, no masses palpable, no organomegaly Extremities: no edema Neurological: intact senses, motor, response and reflexes, normal strength, babinski negative. Romberg test negative Psychological: Appropriate mood and behavior Skin: warm, no rashes Recent Lab Results: Results: CBC: 06/08/2020 05:24 \ Hgb / \ 12.5 / WBC Plt 6.2 298 / Hct \ / 37.5 \ RBC: 4.08 MCV: 92 Neutrophil %: 62.6 CMP: 06/08/2020 05:24 NA+ Cl- BUN / 131 L 98 10 / -------- Glucose --- 108 H K+ HCO3- Creat \ 4.2 26 0.78 \ \ T Bili / \ 0.3 / AST x ---- x ALT 18 x ---- x 11 / Alk P \ / 60 \ Calcium : 9.3 Anion Gap : 11 Albumin : 4.0 T Protein : 6.9 Radiology Results: Results: Impression: Swelling in the left frontal scalp and adjacent to the left nasal bones compatible with contusion in the setting of trauma. No underlying fracture. No acute intracranial hemorrhage, mass effect or midline shift. Cervical spondylosis without acute loss of vertebral body height or traumatic malalignment. CT C Spine without Contrast [Jun 08 2020 6:25AM] Impression: Swelling in the left frontal scalp and adjacent to the left nasal bones compatible with contusion in the setting of trauma. No underlying fracture. No acute intracranial hemorrhage, mass effect or midline shift. Cervical spondylosis without acute loss of vertebral body height or traumatic malalignment. CT Head without Contrast [Jun 08 2020 6:25AM] EKG reviewed: Sinus rhythm, regular rate, no axis deviation. First-degree AV block. Right bundle branch block. No significant ST changes. No T wave inversion. Assessment and Plan: Assessment: 59-year-old female with a past medical history of Graves' disease, fibromyalgia, peptic ulcer disease, breast cancer status post mastectomy and chemotherapy and vitamin D deficiency who presented to the emergency room after having a syncopal episode at home. The only pertinent findings on her blood work-up was a mild hyponatremia. Admit to the telemetry observation services. Regarding her hyponatremia, it is most likely dilutional as patient said that she has been drinking a lot of water recently for her constipation. I would still give IV fluids normal saline at rate of 75 cc/hour and repeat BMP tomorrow. Etiology of her syncope is still unclear; I will proceed with full work-up: Check orthostatics, echocardiogram given the EKG findings, brain MRI/MRA. It could be drug related and/or the underlying Graves' disease as part as autonomic dysfunction but still does would be diagnosis of exclusion. Continue home medications SCDs for DVT prophylaxis Full code Signatures/Attestation/C ertification: Note Completion: Attending Provider Inpatient Certification StatementObservation patient/other outpatient visits Electronic Signatures: Mino Alexandre) (Signed 08-Jun-2020 18:36) Authored: History of Present Illness, Allergies, Medications Prior to Admission, Objective, Assessment and Plan, Signatures/Attestation/C ertification Last Updated: 08-Jun-2020 18:36 by Mino Alexandre) Normal [facility] MAGNESIUMon 06-08-2020 Magnesium [Mass/Vol] 2.09 mg/dL Normal 1.60 - 2.40 [facility] Comment on above: Performed By: #### M G #### [facility] [address] [place] [address] Patient Profile - Adult v2on 06-08-2020 Patient Profile - Adult v2 Profile: Initial Info: How to be Addressedkaren Spoken Language PreferredEnglish Source of Informationpatient Are you currently using the Personal Electronic Health Record or Dayak Stated Reason for Admissionpassing out Primary Contact Name and NumberScokathryn Rock [phone] Limitations on Visitors/Phone Callsnone Other Contact Names and Numberschun mckeon [phone] Wants Family/Rep Notified of Admissionn/a; family present Notify PCPnotify PCP Informed of Patient Visiting Rightsyes Arrived [place] Patient Belongingsremains with patient Patient Belongings Remaining with Patientclothing; cell phone/electronics Medications Brought to Hospitalno General Health: Weight in kg62 kilogram(s)(1) Weight in wct833.6 pound(s) Height in feet5 feet(1) Height in inches4.5 inch(es)(1) Height in cm163.8 centimeter(s) BMI (kg/m2)23.108 square meter Weight Methodactual (measured) Scale Typebed Height Methodstated [facility] Based Care: How would you like to participate in your careno What is the number one concern for you during this hospitalizationno What is the most important thing we can do to support you during this hospitalizationno Is there anything we need to know to best care for youno Commentno Substance: Current or Former Substance Use never: Cigarette/Tobacco(2), e-Cigarette/Vaping(2), Street Drugs(2) YES: Alcohol(2) Health Mgmt: Symptoms/Conditions Managed at Homeendocrine; cancer Cancer Symptoms/Conditionsbreas t Cancer Managementmanaged Endocrine Managementmanaged Barriers to Managing Healthnone Endocrine Symptoms/Conditionsthyro id disease; Grave's disease Are You no (3) Relationship/Environ: Primary Source of Support/Comfortspouse Lives Withspouse Living Arrangementshouse Resource/Environmental Concernsnone [facility]ticipated [facility] Anticipated at Transitionnone Significant IndicatorsComplete Information Review: Allergies, Home Meds and Significant Events have been Reviewed and Verified with Patient/Familyyes ALLERGY, INTOLERANCE, ADVERSE EVENT: Allergies: sulfamethizole: Drug, Unknown, Active Bee Stings: Environment, Unknown, Active Significant Events: 08-Jun-2020 triple negative breast CA: Past Surgical History, Active 08-Jun-2020 graves disease: Past Medical History, Active Electronic Signatures: Marilee Velazco (RN) (Signed 08-Jun-2020 10:43) Authored: Profile, Additional Information Last Updated: 08-Jun-2020 10:43 by Marilee Velazco (KASHIF) References: 1. Data Referenced From 1. Vital Signs 08-Jun-2020 01:36 2. Data Referenced From Risk Screen - Adult Emergency 08-Jun-2020 01:45 3. Data Referenced From Provider Note - ED v2 08-Jun-2020 05:44 [facility] Provider Note - ED v2on 08-0 Provider Note - ED v2 Provider Note - ED v2: Chart Review: ED NOTES ED NOTES: This is a 59-year-old white female with a chief complaint of syncope. Patient says she blacked out around 11:30 this evening. Patient stated that initially she felt woozy she was on the commode and she stated to brush her teeth. Patient states that she passed out. According to the he heard her yellow and the fall. When he reached during the bathroom she was not talking but wasn't making much sense. Patient states that she has been nauseous and feeling woozy earlier. She denied any blurred vision, headache, chest pain, palpitations. Patient states that she has hypothyroidism and her Synthroid with recently lowered. This occurred on Tuesday. Patient states that when she was younger she would have episodes of near fainting when she had upper respiratory tract infection. Patient sustained a laceration to the forehead. Patient denies any recent illness. She denies vomiting diarrhea, fever, shortness of breath, cough, abdominal pain. HISTORY OF PRESENTING ILLNESS MILLA is a 59 year old Female and was seen by me at 08-Jun-2020 01:56 for a chief complaint of fall (Patient states she was getting ready for bed tonight and felt dizzy and odd. Patient fell and hit head on door jam and has R elbow pain. Pt's thyroid medication was recently changed. Patient had 2 glasses of wine tonight. Patient does not take anticoagulants. Patient thinks she is up to date on her tetanus.) . Triage Information: Most recent Vital Sign Value Date Temp (F): 97.8 06-08-2020 01:36 Temp (C): 36.5 06-08-2020 01:36 Heart Rate (beats/min): 79 06-08-2020 01:36 Respirations (breaths/min): 18 06-08-2020 01:36 SpO2 (%): 99 06-08-2020 01:36 BP Systolic (mm Hg): 126 06-08-2020 01:36 BP Diastolic (mm Hg): 82 06-08-2020 01:36 PAST MEDICAL HISTORY ATTESTATION: I have reviewed and confirmed nurse's/medic's notes for patient's medications, allergies, medical history, and surgical history ALLERGIES/INTOLERANCES: Allergy Allergen: sulfamethizole Type: Drug Reaction: Unknown Allergen: Bee Stings Type: Environment Reaction: Unknown HEALTH HISTORY: No documented data. OUTPATIENT MEDICATIONS: Home Medications Review Status for Reconciliation: Complete Med Status: Patient Currently Takes Medications Drug Name: methylphenidate 5 mg oral tablet Instructions: 1.5 tab in am and at noon, 0.5 tab around 4 pm Drug Name: DULoxetine 20 mg oral delayed release capsule Instructions: 1 cap(s) orally once a day Drug Name: Vitamin D2 50,000 intl units (1.25 mg) oral capsule Instructions: 1 cap(s) orally once a week Drug Name: levothyroxine 75 mcg (0.075 mg) oral tablet Instructions: 1 tab(s) orally once a day Drug Name: traZODone 50 mg oral tablet Instructions: 25 milligram(s) orally once a day (at bedtime) Drug Name: liothyronine 5 mcg oral tablet Instructions: 2.5 milligram(s) orally once a day Drug Name: Melatonin 5 mg oral tablet Instructions: 1 tab(s) orally once a day (at bedtime), As Needed Drug Name: calcium (as citrate)-vitamin D 500 mg-200 intl units (5 mcg) oral tablet, chewable Instructions: 1 tab(s) orally once a day Drug Name: magnesium oxide 400 mg (240 mg elemental magnesium) oral tablet Instructions: 1 tab(s) orally once a day, As Needed SIGNIFICANT EVENTS: Past Medical History Description:graves disease Past Surgical History Description:triple negative breast CA COGNOS LEAD: Is : no(1) Is : no(1) REVIEW OF SYSTEMS CONSTITUTIONAL: Negative for: anorexia, chills, diaphoresis, fever, malaise, weakness and weight loss EYES: Negative for: itching, lacrimation, lid swelling, pain, photophobia, redness and vision changes ENMT Ears: Negative for: discharge, itching, hearing disturbance, hearing loss, pain and tinnitus Nose: Negative for: congestion, discharge, nose bleeds, obstruction and sneezing Mouth/Teeth: Negative for: gum bleeding, mouth lesions, tooth caries, tooth trauma and toothache Throat/Neck: Negative for: dysphagia, hoarseness, throat lesions, throat pain, neck lumps, neck pain, neck stiffness and swollen glands CARDIOVASCULAR: Negative for: bradycardia, chest pain, diaphoresis, edema, irregular rhythm, orthopnea, palpitations and tachycardia RESPIRATORY: Negative for: cough, dyspnea, hemoptysis, pleuritic chest pain and wheezing GASTROINTESTINAL: POSITIVE for: nausea; GENITOURINARY: Negative for: cloudy urine, dysuria, frequency, hematuria, strong smelling urine, urgency, vaginal bleeding and vaginal discharge; MUSCULOSKELETAL: Negative for: back pain, joint pain, neck pain, pain, sensory deficits, stiffness and weakness INTEGUMENTARY: Negative for: abrasions, dryness, hives, itching, jaundice, lesions and lumps; NEUROLOGICAL: POSITIVE for: loss of consciousness; PSYCHIATRIC: Negative for: anxiety, depression, hallucinations, insomnia, memory changes and mood swings ENDOCRINE: Negative for: change in weight, cold/heat tolerance, diabetes, hot flashes, polydipsia, polyuria and thyroid trouble HEME/LYMPH: Negative for: anemia, easy bleeding, easy bruising, jaundice, night sweats, past transfusion and swollen lymph nodes ALLERGIC/IMMUNOLOGIC: Negative for: dermatitis, environmental allergies, food allergies, hay fever, HIV, immunologic disorder and immunosuppressive disorder; RESULTS/VITAL SIGNS EKG INTERPRETATION: EKG Date/Time: 08-Jun-2020 05:17 Rate: 74 Indication: syncope Rhythm: NSR STEMI: no Blocks: 1st degRBBB Sgarbossa: Negative [place]: Normal Prior EKG: no old EKG available PHYSICAL EXAM CONSTITUTIONAL: Well appearing, well nourished, awake, alert, oriented to person, place, time/situation and in no apparent distress. HENMT: Head Examination: EVIDENCE OF TRAUMA Face: TENDERNESS Ear: - BILATERAL TM's CLEAR Nose: normal inspection Mouth: normal mouth inspection Teeth: no visible abnormalities Throat: normal pharynx EYES: Clear bilaterally, pupils equal, round and reactive to light. CARDIOVASCULAR: Normal rate, regular rhythm. Heart sounds S1, S2. No murmurs, rubs or gallops. PMI non-displaced. RESPIRATORY: Breath sounds clear and equal bilaterally. GASTROINTESTINAL: Abdomen soft, non-distended, no rebound, no guarding. Bowel sounds normal in all 4 quadrants. MUSCULOSKELETAL: Spine appears normal, range of motion is not limited, no muscle or joint tenderness. NEUROLOGICAL: Alert and oriented, no focal deficits, no motor or sensory deficits. SKIN: Skin Color: normal for race Skin Temperature: warm and dry Capillary Refill: less than 2 seconds Wound Type: LACERATION(S) Wound Description: FULL THICKNESS and LINEAR Drainage Color: sanguineous Wound #1: Location: forehead Length: 2.5 cm PSYCHIATRIC: Alert and oriented to person, place, time/situation. normal mood and affect. No apparent risk to self or others. MEDICAL DECISION MAKING/ED COURSE MDM/ED COURSE: Ms. Rock is a 59-year-old white female that the presents status post syncopal episode. Patient lost consciousness at around 11:30 last night. Patient states that she had just use the commode and hospital pressure teeth and the next day she was on the floor in the bathroom. Patient did sustain a head injury forehead laceration. According to the he heard the [id number] and the fall. When he arrived to the sister she was talking but not making sense. Patient states that she was nauseous but no vomiting and she felt woozy. She denied any prodrome. She has a past medical history of Graves' disease, status post ablation, osteoporosis, troponin negative breast cancer patient states that her physician has been adjusting her Synthroid. Her dose was lowered on Tuesday. Patient here was not orthostatic. Her sodium was 131 magnesium was 2.09, CBC was normal, TSH was 0.25, troponin was negative. Twelve-lead EKG revealed normal sinus rhythm with first-degree AV block with incomplete right bundle branch block [address] scan of the brain and C-spine were negative. Patient underwent the laceration repair to the forehead. I believe the patient would benefit from admission with telemetry observation due to the syncopal episode. CLINICAL IMPRESSION Diagnosis/Annotation: ED Dx Name:Syncope Code:R55 Name:Laceration of forehead Code:S01.81XA Dispostion: hospitalized Admit to: Telemetry. Admitting Considerations: ATTESTATION CRITICAL CARE TIME Is this a critically ill patient: no Electronic Signatures: Cindy Gallagher) (Signed 09-Jun-2020 03:24) Authored: Provider Note - ED v2 Last Updated: 09-Jun-2020 03:24 by Cindy Gallagher) References: 1. Data Referenced From Triage - ED 08-Jun-2020 01:36 Normal [facility] Risk Screen - Adult Emergenc yon 06-08-2020 Risk Screen - Adult Emergency Preferred Language: Preferred Language: Preferred Language for Discussing Health Care (patient/designee)Mykel regalado Advanced Directives: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 Food sensitivities: Yes, avocado and eggs Reported lifestyle behaviors and eating habits:travel frequently,significant other or family don't like healthy foods,don't care to cook,confused about nutrition advice ? Diet Recall: Yes, B: Coffee with cream every morning; sometimes a handful of almonds, usually an apple, sometimes eggs, haven't eaten oatmeal for a while but sometimes have that for long stretches. L: I eat my breakfast 2 hours after thyroid pills, usually mid morning. I'm honestly hungry each day around 3 in the afternoon. D: Meat, vegetables, sometimes pasta. Snacks: During the day, I snack on fruits or nuts, dried dates, sometimes a can of olives, etc. In the evening I have a glass of wine and a darci bar. Beverages: Water, coffee, some tea at times. ? Excessive stress reported?: No ? 58 year old female presents for nutrition assessment relative to brain health and thyroid dysfunction. C/o fatigue, bloating, intestinal pain. Past medical history is notable for triple negative breast cancer. Diet recall includes gluten free diet - trial of elimination but unclear on foods to include and foods to exclude and why. Due to multiple digestive symptoms and history of breast cancer, patient would benefit from whole foods, plant based, low glycemic food plan that minimizes potential food triggers and utilizes strategies to aid in good digestion. ? Nutrition Diagnosis: Food and nutrition related knowledge deficit related to lack of prior education as evidenced by patient's verbalized inaccurate/incomplete information. ? Nutrition Intervention 11/08/2018: Nutrition education: 1. Whole foods, plant based, low glycemic, comprehensive elimination diet 2. Adequate hydration 3. Self-Monitoring: Track food/beverage intake 4. Schedule follow up for food reintroduction and further personalization of eating plan ? Nutrition Monitoring AND Evaluation: Adherence to elimination diet Criteria: Patient recall, food diary CURRENT NUTRITION ASSESSMENT Reason for consult: Follow-up Visit Date: December 25, 2018 Previous Concern(s): 1. Brain 2. Thyroid 3. Neuropathy 4. Bone health 5. Fatigue Current Concern(s): 1. Brain 2. Thyroid 3. Neuropathy 4. Bone health 5. Fatigue Is the patient having any pain that is interfering with oral intake? No Labs: Ref. Range 11/08/2018 GGT Latest Ref Range: 6 - 46 U/L 22 Ferritin Latest Ref Range: 14.7 - 205.1 ng/mL 168.1 Homocysteine, Serum Latest Ref Range: <15.1 umol/L 17.6 (H) UltraSens C-Reactive Protein Latest Ref Range: <3.1 mg/L 0.8 Vitamin D 25 Hydroxy Latest Ref Range: 31.0 - 80.0 ng/mL 50.4 Hemoglobin A1C Latest Ref Range: 4.3 - 5.6 % 5.4 Estimated Average Glucose Latest Units: mg/dL 108 Insulin Latest Ref Range: 1 - 24 uU/mL 6.0 DHEA-S Latest Ref Range: 18.9 - 205.0 ug/dL 43.6 Estradiol 17B Latest Units: pg/mL <25 Progesterone Latest Units: ng/mL <0.2 Subjective: What are the nutrition-related successes? - Elimination diet x almost 6 weeks - Added back coffee with MCT oil based on Shuropody with Radha which helped - Her started the elimination diet 2 weeks ago (also a patient here) What are the nutrition-related concerns? - Feels like she is doing something wrong - Initial weight gain - now evened out - Questions: finding it difficult to eat enough food (especially protein), light eater during the day, digestive symptoms (bloating/gas) - better without Therbiotic but still occurs (increased intake of legumes) - Stopped Therbiotic and GI Revive due to uncomfortable bloating (recommended reaching out to Dr. Cruz) The first couple weeks started the supplements - Became uncomfortably bloated Diet Recall: Yes, elimination diet B: 3-4 dates, coffee with MCT oil, 1/2 can olives L: 1/2 cup green beans S: Oatmeal with nuts and berries D: Protein, vegetables Meal Plans: Elimination diet - reintroduce protein foods Incorporate more protein foods during the day (consistent with patient's preferred light eating structure) Nutrition Diagnosis: Food and nutrition related knowledge deficit related to lack of prior education as evidenced by patient's verbalized inaccurate/incomplete information. Nutrition Intervention 12/25/2018: 1. Incorporate more protein sources: - Collagen: aim for 2 scoops per day - Vital Proteins, Bulletproof (chocolate or vanilla), [place] Collagen - Reintroduce: eggs, grass beef, pork, shrimp - Use the 4 day reintroduction protocol 2. Try to limit legumes to once per day to see if that helps with bloating. Nutrition Monitoring AND Evaluation: Adherence to nutrition recommendations Criteria: Patient report, diet recall Follow up: 1 month Time Spent with patient: 30 minutes Consult Billing Type: Re-assess/15 minutes, 2 increment(s), 30 minutes Number of Increments: 2 (30 minutes) Signed by: Dacia Marcos RD [facility] CNOVon 12-11-2018 CNOV Office Visit (MEDFMN ) -------- MILLA ROCK ([id number]) 1960 F Date Time Provider Department 12/11/18 3:00 PM JOSH OLSON During your visit today, we recorded the following information about you: Josh Olson, Health Senior Data Warehouse Architect 12/14/2018 5:19 PM Signed HEALTH COACHING In-Person ? Subjective: Better brain function. Less fatigue. Graves disease for a year before my then PCP diagnosed it. (I lost 50# before he thought to recheck my thyroid after 2 years) I had radiation tablet for Graves. 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 ? I don't know. I've tried lots of things, and some help, but there is no magic bullet. I'm ok with now years of 'babysteps' of recovery, but hope I'm not missing something that could help ? MSQ: 172 ........................ ........................ ........................ .......- ........................ ........................ .............. Patient reported generally positive, saying that diet is getting better and sleep has improved. More fatigued DIET: Patient explained that she is not hungry, so she is curious about intermittent fasting. Referred to Radha for questions. SLEEP: Sleep has been better, more wind-down. Patient still reports fatigue and says that she struggles with morning routine. Discussed consistency and ways to kick-start. Other notes: Hip/leg pain has been bothering her- needs a scan Flares up on hard surfaces Send Yoga, hip flexor stretches -------- Time Spent with Patient: 30 minutes Consult Billing Type: 1 (30 minutes) Number of Increments: 1 (30 minutes) Signed by: Josh Olson, Health Senior Data Warehouse Architect Referring Provider: SELF [[id number]] Allergies As of Date: 12/11/2018 Noted Allergy Reaction BEES 03/16/2006 7 - Swelling SULFA (SULFONAMIDE ANTIBIOTICS) 05/27/2011 2 - Rash Date Reviewed: 11/08/2018 Reviewed by: Radha Cuevas) Ochoa - Fully Assessed Reason for Visit: Follow Up [171] Primary Visit Diagnosis:Follow up [Z09] Prescriptions as of 12/11/2018 Sig: OTC NUTRITIONAL SUPPLEMENT Take 7.5 grams (approx 2 teas* OTC NUTRITIONAL SUPPLEMENT Take 1 capsule by mouth once * OTC NUTRITIONAL SUPPLEMENT Take 1 in AM and 1 before bed OTC NUTRITIONAL SUPPLEMENT Take 1 capsule by mouth once * OTC NUTRITIONAL SUPPLEMENT Work up to 2-3 twice a day. 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 Hypothyroidism [E03.9] INVALID FOR* More... PUD (peptic ulcer disease) [K27.9] INVALID FOR* Costochondritis [M94.0] INVALID FOR* Colon polyp [K63.5] INVALID FOR* Peripheral neuropathy, secondary to drugs or ch*INVALID FOR* More... Cognitive changes [R41.89] INVALID FOR* More... Mild cognitive impairment [G31.84] INVALID FOR* More... Encounter Status:Closed by ANGELIKA HE[facility] DAMAGE CUTTERJOSH on 12/14/18 [facility] PROGRESSon 12-11-2018 Protein mass conc HNO ID: [id number] Author: Josh Olson Service: (none) Author Type: Educator Type: Progress Notes Filed: 12/14/2018 5:19 PM Note Text: HEALTH COACHING In-Person ? Subjective: Better brain function. Less fatigue. Graves disease for a year before my then PCP diagnosed it. (I lost 50# before he thought to recheck my thyroid after 2 years) I had radiation tablet for Graves. 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 ? I don't know. I've tried lots of things, and some help, but there is no magic bullet. I'm ok with now years of 'babysteps' of recovery, but hope I'm not missing something that could help ? MSQ: 172 ........................ ........................ ........................ ... ........................ ........................ .................. Patient reported generally positive, saying that diet is getting better and sleep has improved. More fatigued DIET: Patient explained that she is not hungry, so she is curious about intermittent fasting. Referred to Radha for questions. SLEEP: Sleep has been better, more wind-down. Patient still reports fatigue and says that she struggles with morning routine. Discussed consistency and ways to kick-start. Other notes: Hip/leg pain has been bothering her- needs a scan Flares up on hard surfaces Send Yoga, hip flexor stretches --- Time Spent with Patient: 30 minutes Consult Billing Type: 1 (30 minutes) Number of Increments: 1 (30 minutes) Signed by: Josh Olson, Health Senior Data Warehouse Architect [facility] CNCNPATEDon 11-08-2018 CNCNPATED Education (MEDN) -------- MILLA ROCK ([id number]) 1960 F Date Time Provider Department 11/08/18 10:00 AM RADHA DURBIN (RD) MEDN Reason for Visit: Patient Education [91] Progress Notes: Radha Durbin, RD LD 11/08/2018 12:25 PM Signed [facility] for Functional Medicine Nutrition Therapy: Initial Assessment (Group) Patient Name: Milla Rock Class Topic: Functional Nutrition and Elimination Diet Introduction Education Materials: IFM Elimination Diet Food List, Weekly Lens Hardener and Recipes, Comprehensive Guide, Adaptable Meals, Dirty Dozen Chief Concerns: 1. Brain 2. Thyroid 3. Neuropathy 4. Bone health 5. Fatigue MSQ Score: 172, mind, energy/activity, joints/ muscles Is the patient having any pain that is interfering with oral intake? No Past Medical History: PAST MEDICAL HISTORY Diagnosis Date - Breast cancer (HCC) 02/04/2014 Dr. Galeana - Colon polyp 02/04/2014 hyperplastic (2010) - Costochondritis 02/04/2014 - Fibromyalgia muscle pain 2005 - Graves disease 2005 - Hypothyroidism 02/04/2014 - Mild cognitive impairment 08/02/2015 Isa Currie MD. Neurology. [facility] 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 - PUD (peptic ulcer disease) 02/04/2014 - PURPURA NOS 03/16/2006 Anthropometrics: There were no vitals taken for this visit. Height: Last 1 Encounter Ht Readings: Date: Ht: 11/08/2018 162.6 cm (5' 4.02) Current weight: Last 1 Encounter Wt Readings: Date: Wt: 11/08/2018 58.9 kg (129 lb 14.4 oz) Wt: 58.9 kg (129 lb 14.4 oz) BMI: 22.29 kg/(m2) Resting Metabolic Rate: 1158 Lifestyle: Weight issues: No Adequate, restful sleep?: No Currently exercising?: Yes, lymph gland stretches 6 times a week, 15 minutes GI symptoms:Yes, bloated, intestinal pain Dietary pattern: Current diet: Yes, elimination,no wheat,gluten free Food allergies:No Food sensitivities: Yes, avocado and eggs Reported lifestyle behaviors and eating habits:travel frequently,significant other or family don't like healthy foods,don't care to cook,confused about nutrition advice Diet Recall: Yes, B: Coffee with cream every morning; sometimes a handful of almonds, usually an apple, sometimes eggs, haven't eaten oatmeal for a while but sometimes have that for long stretches. L: I eat my breakfast 2 hours after thyroid pills, usually mid morning. I'm honestly hungry each day around 3 in the afternoon. D: Meat, vegetables, sometimes pasta. Snacks: During the day, I snack on fruits or nuts, dried dates, sometimes a can of olives, etc. In the evening I have a glass of wine and a darci bar. Beverages: Water, coffee, some tea at times. Excessive stress reported?: No 58 year old female presents for nutrition assessment relative to brain health and thyroid dysfunction. C/o fatigue, bloating, intestinal pain. Past medical history is notable for triple negative breast cancer. Diet recall includes gluten free diet - trial of elimination but unclear on foods to include and foods to exclude and why. Due to multiple digestive symptoms and history of breast cancer, patient would benefit from whole foods, plant based, low glycemic food plan that minimizes potential food triggers and utilizes strategies to aid in good digestion. Nutrition Diagnosis: Food and nutrition related knowledge deficit related to lack of prior education as evidenced by patient's verbalized inaccurate/incomplete information. Nutrition Intervention 11/08/2018: Nutrition education: 1. Whole foods, plant based, low glycemic, comprehensive elimination diet 2. Adequate hydration 3. Self-Monitoring: Track food/beverage intake 4. Schedule follow up for food reintroduction and further personalization of eating plan Nutrition Monitoring AND Evaluation: Adherence to elimination diet Criteria: Patient recall, food diary Follow up: 4 weeks Time Spent: 60 minutes Referred/Supervised by: Dr. Domitila Cruz Consult Billing Type: Group/60 minutes Number of Increments: 2 (60 minutes) Abstract Prepared by: Compa Fisher, Student Signed by: Radha Durbin, MS, RDN, MILEAGE CLERK, LD Primary Visit Diagnosis:Mild cognitive impairment [G31.84] Other Visit Diagnoses:Peripheral neuropathy, secondary to drugs or chemicals [[id number]] Hypothyroidism, unspecified type [E03.9] History of breast cancer [Z85.3] Dietary surveillance and counseling [Z71.3] During your visit today, we recorded the following information about you: Allergies As of Date: 11/08/2018 Noted Allergy Reaction BEES 03/16/2006 7 - Swelling SULFA (SULFONAMIDE ANTIBIOTICS) 05/27/2011 2 - Rash Date Reviewed: 11/08/2018 Reviewed by: Rahda (Jovan) Ochoa - Fully Assessed Prescriptions as of 11/08/2018 Sig: METFORMIN 850 MG TABLET OR PLACEBO/BLINDED STUDY MEDI* CHOLECALCIFEROL (VITAMIN D3) * Take 1 capsule by mouth once * LEVOTHYROXINE 100 MCG TABLET Take 1 tablet by mouth once d* LIOTHYRONINE 5 MCG TABLET Take 0.5 tablets by mouth onc* TRAZODONE 50 MG TABLET Take 1 tablet by mouth daily * GABAPENTIN 100 MG CAPSULE Take 1 capsule by mouth daily* FLUTICASONE 50 MCG/ACTUATION * Use 2 Sprays in each nostril * Encounter Status:Closed by RADHA DURBIN on 11/08/18 [facility] CNOVon 11-08-2018 CNOV Office Visit (MEDN ) -------- MILLA ROCK ([id number]) 1960 F Date Time Provider Department 11/08/18 11:00 AM MILLA VALDES (HEALTH DAMAGE CUTTER) [facility] During your visit today, we recorded the following information about you: Milla Valdes Health Senior Data Warehouse Architect 11/08/2018 12:13 PM Signed INITIAL VISIT [facility] DAMAGE CUTTER [facility] Subjective: Better brain function. Less fatigue. Graves disease for a year before my then PCP diagnosed it. (I lost 50# before he thought to recheck my thyroid after 2 years) I had radiation tablet for Graves. 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 I don't know. I've tried lots of things, and some help, but there is no magic bullet. I'm ok with now years of 'babysteps' of recovery, but hope I'm not missing something that could help MSQ: 172 ........................ ........................ ........................ .......- ........................ ........................ .............. ........................ ........................ ........................ .......- ......... FOLLOW UP: Educational materials provided: Heart Math/Meditation and Mindfulness/ Resource sheet and Health coaching scheduling informtion. Additional support needed: Consider (4) Virtual Consultations with Health Senior Data Warehouse Architect Signed : Milla Valdes MA FORMERLY [facility] Board Certified Health and Design Technology Professor Time Spent with patient: 30 minutes Consult Billing Type: 1 increment (30 minutes) Number of Increments: 1 (30 minutes) Referring Provider: SELF [[id number]] Allergies As of Date: 11/08/2018 Noted Allergy Reaction BEES 03/16/2006 7 - Swelling SULFA (SULFONAMIDE ANTIBIOTICS) 05/27/2011 2 - Rash Date Reviewed: 11/08/2018 Reviewed by: Radha Cuevas) Ochoa - Fully Assessed Reason for Visit: Patient Education [91] Primary Visit Diagnosis:Encounter for person encountering health services [Z76.89] Prescriptions as of 11/08/2018 Sig: METFORMIN 850 MG TABLET OR PLACEBO/BLINDED STUDY MEDI* CHOLECALCIFEROL (VITAMIN D3) * Take 1 capsule by mouth once * LEVOTHYROXINE 100 MCG TABLET Take 1 tablet by mouth once d* LIOTHYRONINE 5 MCG TABLET Take 0.5 tablets by mouth onc* TRAZODONE 50 MG TABLET Take 1 tablet by mouth daily * GABAPENTIN 100 MG CAPSULE Take 1 capsule by mouth daily* FLUTICASONE 50 MCG/ACTUATION * Use 2 Sprays in each nostril * Problem List As Of Date 11/08/2018 Noted Resolved 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 Hypothyroidism [E03.9] INVALID FOR* More... PUD (peptic ulcer disease) [K27.9] INVALID FOR* Costochondritis [M94.0] INVALID FOR* Colon polyp [K63.5] INVALID FOR* Peripheral neuropathy, secondary to drugs or ch*INVALID FOR* More... Cognitive changes [R41.89] INVALID FOR* More... Mild cognitive impairment [G31.84] INVALID FOR* More... Encounter Status:Closed by MILLA VALDES on 11/08/18 [facility] Office Visit (MEDFMN ) -------- MILLA ROCK ([id number]) 1960 F Date Time Provider Department 11/08/18 7:30 AM [facility] During your visit today, we recorded the following information about you: Pulse Blood pressure Weight Height 87/minute 115/64 58.9 kg 1.626 m Domitila Cruz DO 11/08/2018 9:04 AM Signed FUNCTIONAL MEDICINE INITIAL ASSESSMENT Patient: Milla Rock 58.9 kg (129 lb 14.4 oz) 162.6 cm (5' 4.02) Body mass index is 22.29 kg/m?. RMR can't be calculated - Weight unrecorded in last 120 days. Waist measurement: No waist measurement recorded. BP: 115/64 ALLERGIES Allergen Reactions - Bees Swelling - Sulfa (Sulfonamide * Rash Current Outpatient Prescriptions on File Prior to Visit: metFORMIN (GLUCOPHAGE) 850 mg tablet OR PLACEBO/BLINDED STUDY MEDICATION cholecalciferol, Vitamin D3, (VITAMIN D3) 50,000 unit cap capsule Take 1 capsule by mouth once each week. levothyroxine (LEVOXYL) 100 mcg tablet Take 1 tablet by mouth once daily. Take on empty stomach. For Thyroid. liothyronine (CYTOMEL) 5 mcg tablet Take 0.5 tablets by mouth once daily. traZODone (DESYREL) 50 mg tablet Take 1 tablet by mouth daily at bedtime. gabapentin (NEURONTIN) 100 mg capsule Take 1 capsule by mouth daily at bedtime. fluticasone (FLONASE) 50 mcg/actuation nasal spray Use 2 Sprays in each nostril once daily. Rinse mouth after use. No current facility-administered medications on file prior to visit. PAST MEDICAL HISTORY Diagnosis Date - Breast cancer (HCC) 02/04/2014 Dr. Galeana - Colon polyp 02/04/2014 hyperplastic (2010) - Costochondritis 02/04/2014 - Fibromyalgia muscle pain 2005 - Graves disease 2005 - Hypothyroidism 02/04/2014 - Mild cognitive impairment 08/02/2015 Isa Currie MD. Neurology. [facility], [facility] 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 - PUD (peptic ulcer disease) 02/04/2014 - PURPURA NOS 03/16/2006 PAST SURGICAL HISTORY Procedure Laterality Date - COLONOSCOP W/ OR W/O [facility] SPEC 2012 Colonoscopy - EGD W/O OR W/BRUSH/WASH 02/01/2014 EGD - MASTECTOMY, MODIFIED RADICAL April2012 Left Social History Marital status: Spouse name: Years of education: Number of children: Occupational History Occupation Employer Comment n/a GI bookeeper Social History Main Topics Smoking status: Never Smoker Smokeless tobacco: Never Used Alcohol use: Yes Comment: 1-2 drinks per month on occasion Drug use: No Sexual activity: Yes Partners with: Male EVALUATION MSQ Initial 143 SUBJECTIVE 2019 Initial visit - Patient goals: 1. Brain 2. neuropathy 58 ;yo with breast cancer - brain fog after chemo, neuropathy, osteopenia, fatigue root cause stress Current Problem Name Date Started Priority Severity Prior Treatment Success of Prior Treatment Brain - 1 moderate yes somewhat successful thyroid - - mild yes somewhat successful neuropathy - 2 moderate yes somewhat successful bone health - 3 moderate yes not successful fatigue - 4 moderate yes somewhat successful Last Medical Care : Oct 18, 2018 - [facility] - Dr. Ordaz Primary Care Physician Name : Dr. Simmons [place] about our practice from : other Health Goals What do you hope to achieve in your visit with us? : Better brain function. Less fatigue. When was the last time you felt well? : A long time. Before the year of Graves Disease at least. Did something trigger your change in health? : Graves disease for a year before my then PCP diagnosed it. (I lost 50# before he thought to recheck my thyroid after 2 years) I had radiation tablet for Graves. 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 What makes you feel better? : After a rather severe case of chemo-brain (in my view at least, smile) my PCP, Dr. Simmons tried me on Aricept, which helped some but tore up my stomach a bit. I did notice that after a week, I was noticing art on the rosales again, shadows, grimy dirt, etc, that wasn't seen by me for a few years previously. My brain/pain doctors started me on Ritalin, and after working through dosing, I have ended up staying with the short acting 5mg, taken 2 or 3 times a day, depending on my schedule for the evening. Oddly, Ritalin also helped my stomach symptoms. After a flare up of my neuropathy after a virus in the spring, my brain/pain doctors started me on Cymbalta to help with the nerve pain. It also helped my sleep tremendously. What makes you feel worse? : For neuropathy: Cold temperatures, hot humid temperatures, walking often, walking on freezing or hot or hard surfaces. Even on Cymbalta, I still usually have a tingling in the feet and hands which is very manageable. Brain: being brain overwhelmed in groups of people or stores, etc; speaking and thinking while in those situations; doing more than one important thing per day; focusing; reading with any cognition or remembering what I have read. I have a hard time with memory, but have been in OT with some good therapists that have helped, along with Ritalin. Fatigue: After being on Ritalin, I've realized that some of my fatigue was closely related to brain fatigue, but I also have body fatigue and need to plan my days carefully to avoid 'crashing' for a few days. Lymphedema: Although I have not had a huge flare-up of Lymphedema, I can feel my left arm become very heavy at times, my left chest side wall feels hot and feels as if it is swelling, and at times there feels like a small football is in my upper arm, I've had a really good PT that has helped me recognize the symptoms and take care of them quickly and to also be preventative even, by wearing compression shirts, keeping compression pillows in my car and bedroom for sleeping and driving, and also doing lymph gland stretches. But doing any stretch of strengthening exercises usually results in my chest and arm reacting. How does your condition affect you? : I feel as if I am a 89 year old, not 58. I need 'recovery' for any activity. What do you think is happening and why? : I don't know. I know that there are effects from chemo and radiation, but others were not affected as much as me it seems. I did do a Phase 1 drug study with my oncologist, so had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 11-04-2023 SARS-CoV-2, Influenz a & RSV (PCR) Start: 10-12-2023 Screening mammograph y bi 2-view breast inc cad Robert Sosa UG DESIGNER-DRAPERY EXAMINER Work Phone: Start: 10-06-2022 Screening mammograph y bi 2-view breast inc cad Reina Rosario UG DESIGNER-DRAPERY EXAMINER Work Phone: Start: 07-18-2020 Colonoscopy Yazmin chaidez MD Work Phone: Start: 06-09-2020 Echocardiography Start: 02-12-2014 Microscopic observat ion [Identifier] in Cervix by Cyto stain Yazmin Ordaz MD Work Phone: Plan of Treatment Date Care Activity Detail Author Start: 10-30-2025 End: 10-30-2025 Patient encounter procedure [facility] [place] Start: 10-17-2025 End: 11-17-2025 MG Breast - right Screening MAMMO SCREENING WITH CHEPE RIGHT Imaging Routine Personal history of breast cancer Encounter for screening mammogram for malignant neoplasm of breast Expected: 10/17/2025 (Approximate), Expires: 11/17/2025 [facility] Comment on above: Expected: 10/17/2025 (Approximate), Expires: 11/17/2025 Start: 10-17-2025 Screening for malignant neoplasm of breast MAMMOGRAM RIGHT [facility] Start: 07-18-2025 Colonoscopy COLONOSCOPY [facility] Start: 07-18-2025 Screening for malignant neoplasm of colon COLONOSCOPY [facility] Start: 01-02-2025 End: 01-02-2025 Telemedicine consultation with patient 01/02/2025 12:30 PM EST Telemedicine [facility] [place] [phone] [place] [address] Yazmin Ordaz MD [facility] [place] [phone] [facility] [place] [phone] Start: 10-17-2024 End: 10-17-2024 Patient encounter procedure [facility] Start: 10-12-2024 End: 11-12-2024 MG Breast - right Screening MAMMO SCREENING WITH CHEPE RIGHT Imaging Routine Personal history of breast cancer S/P left mastectomy Encounter for screening mammogram for malignant neoplasm of breast Expected: 10/12/2024 (Approximate), Expires: 11/12/2024 [facility] Comment on above: Expected: 10/12/2024 (Approximate), Expires: 11/12/2024 Start: 10-12-2024 Screening for malignant neoplasm of breast MAMMOGRAM RIGHT [facility] Start: 10-03-2024 End: 10-03-2025 URINE DRUG SCREEN 10 WITH CONFIRMATION URINE DRUG SCREEN 10 WITH CONFIRMATION Lab Routine Encounter for therapeutic drug level monitoring Expected: 10/03/2024, Expires: 10/03/2025 [facility] Comment on above: Expected: 10/03/2024 , Expires: 10/03/2025 Start: 07-01-2024 COVID-19 VACCINE ( season) COVID-19 VACCINE () [facility] Start: 07-01-2024 Influenza vaccination INFLUENZA VACC INE (#1) [facility] Start: 01-04-2024 End: 01-04-2024 Telemedicine consultation with patient 01/04/2024 11:30 AM EST Telemedicine [facility] [place] [phone] [place] [address] Yazmin Ordaz MD [address] [place] [phone] [facility] [place] [phone] Start: 11-24-2023 End: 11-24-2023 Patient encounter procedure 11/24/2023 11:00 AM EST Rehab Services Visit [facility] [address] [place] [address] [place] [phone] Robert Sosa, UG DESIGNER-DRAPERY EXAMINER [address], [address] [place] [phone] Susy Correa, PT [address] [place] [address] [place] [phone] [facility] Start: 10-12-2023 End: 10-12-2023 Patient encounter procedure [facility] [place] Start: 10-06-2023 Screening for malignant neoplasm of breast MAMMOGRAM RIGHT [facility] Start: 10-05-2023 End: 10-05-2024 URINE DRUG SCREEN 10 URINE DRUG SCREEN 10 Lab Routine Chemotherapy-induced peripheral neuropathy Expected: 10/05/2023, Expires: 10/05/2024 [facility] Comment on above: Expected: 10/05/2023 , Expires: 10/05/2024 Start: 07-01-2023 COVID-19 VACCINE ( season) COVID-19 VACCINE ( season) [facility] Start: 07-01-2023 Influenza vaccination O [facility] Start: 03-09-2023 End: 03-09-2023 Telemedicine consultation with patient 03/09/2023 Telemedicine Oncology Yazmin Ordaz MD [address] [place] [phone] [facility] [place] [phone] Start: 02-22-2023 End: 02-23-2024 CANCER GENETICS (LAB SEND OUT) CANCER GENETICS (LAB SEND OUT) Outside Labs Routine Personal history of malignant neoplasm of breast Expected: 02/22/2023, Expires: 02/23/2024 [facility] Comment on above: Expected: 02/22/2023 , Expires: 02/23/2024 Start: 01-17-2023 Tetanus vaccination TETANUS [facility] Start: 12-08-2022 End: 12-08-2023 TOXICOLOGY SCREEN URINE - UDRG TOXICOLOGY SCREEN URINE - UDRG Fluids Routine Chemotherapy-induced peripheral neuropathy Fatigue, unspecified type Expected: 12/08/2022, Expires: 12/08/2023 [facility] Comment on above: Expected: 12/08/2022 , Expires: 12/08/2023 Start: 12-08-2022 End: 12-08-2022 Patient encounter procedure 12/08/2022 Office Visit Oncology Yazmin Ordaz MD [address] [place] [phone] [facility] [place] [phone] Start: 09-28-2022 Thyroid stimulating hormone measurement TSH [facility] Start: 07-01-2022 Influenza vaccination INFLUENZA VACC INE (#1) [facility] Start: 11-19-2021 Thyroid stimulating hormone measurement TSH [facility] Start: 09-28-2021 End: 09-28-2021 Patient encounter procedure [facility] Start: 09-16-2021 End: 09-16-2021 Telemedicine consultation with patient 09/16/2021 Telemedicine Oncology Yazmin Ordaz MD [address] [place] [phone] [facility] [place] [phone] Start: 09-15-2021 MAMMOGRAM RIGHT MAMMOGRAM RIGHT [facility] Start: 07-01-2021 Influenza vaccination INFLUENZA VACC INE (#1) [facility] Start: 06-24-2021 End: 08-25-2022 TOXICOLOGY SCREEN URINE - UDRG TOXICOLOGY SCREEN URINE - UDRG Fluids Routine Chemotherapy-induced peripheral neuropathy Expected: 06/24/2021, Expires: 06/24/2022 [facility] Work Phone: Comment on above: Expected: 06/24/2021 , Expires: 06/24/2022 Start: 04-02-2021 COVID-19 VACCINE (3 - Booster for Moderna series) COVID-19 VACCINE (3 - Booster for Moderna series) [facility] Start: 2020 RSV VACCINE (1 - 1-dose 60+ series) RSV VACCINE (1 - 1-dose 60+ series) [facility] Start: 02-12-2019 Microscopic observation [Identifier] in Cervix by Cyto stain PAP SMEAR [facility] Start: 02-12-2019 Screening for malignant neoplasm of cervix PAP SMEAR [facility] Start: 2010 Zoster vaccine hzv live for subcutaneous use ZOSTER (SHINGLES) VACCINE (1 of 2) [facility] Start: 2000 Fasting lipid profile LIPID SCREENIN G [facility] Start: 2000 Lipid panel LIPID SCREENING [facility] Start: 1979 Third diphtheria, tetanus and acellular pertussis (DTaP) vaccination TDAP (ADULT) [facility] Start: 1978 Tetanus vaccination TETANUS [facility] Start: 1975 HIV screening HIV SCREENING DISCUSSION [facility] Immunizations Immunization Date Immunization Notes Care Provider Fa cility 08-18-2017 influenza, injectabl e, quadrivalent, contains preservative Yazmin Ordaz MD Work Phone: [facility] 08-18-2017 influenza virus vaccine, unspecified formulation Yazmin Ordaz MD Work Phone: [facility] Payers Date Payer Category Payer Unknown \[id number] 2024 Self-pay [id number] merged with [facility] 1996 Unknown [employer] [place] [id number] 1996-Present [address] [place] [address] [id number] 1996 Unknown [employer] [place] [id number] 1996-Present [address] [place] [address] [id number] 1996 Unknown [id number] 1960 Unknown [id number] 1960 Unknown [id number] 1960 Unknown [id number] 1960 Unknown [id number] 1960 Unknown [id number] 1960 Unknown [id number] 1960 Unknown [id number] 1960 Unknown [id number] 1960 Unknown [id number] Unknown [id number] Unknown [id number] Unknown [id number] Unknown [id number] Social History Date Type Detail Facility Start: 07-14-2015 End: 10-03-2024 Tobacco smoking status NHIS Former smoker [facility] History of tobacco use Cigarette Smoker O [facility] Start: 07-14-2015 End: 10-03-2024 Tobacco use and exposure Never used [facility] Start: 04-14-2021 End: 10-17-2024 Alcohol intake Current drinker of alcohol (finding) [facility] Start: 04-14-2021 End: 10-03-2024 Alcohol intake [facility] Start: 09-27-2020 History SDOH Financial 4 [facility] Start: 09-27-2020 End: 09-28-2021 History SDOH Food Worry 1 [facility] Start: 09-27-2020 End: 09-28-2021 History SDOH Transport Med 2 [facility] Start: 07-14-2015 End: 10-05-2023 Tobacco Comment quit teen years [facility] Start: 09-22-2020 Alcohol Comment Usually one drink a day [facility] Start: 1960 Sex Assigned At Not on file [facility] Exposure to SARS-CoV -2 (event) Not sure [facility] Start: 07-19-2017 End: 07-19-2017 Tobacco smoking status NVIS Unknown if ever smoked [facility] Start: 1960 Sex Assigned At Female W [facility] History of tobacco use Current smoker [facility] Start: 09-28-2021 History SDOH Financial 5 [facility] Start: 09-26-2022 End: 12-08-2022 Exposure to SARS-CoV-2 (event) Unable to assess [facility] Start: 10-05-2023 End: 10-03-2024 Tobacco use panel [facility] How hard is it for y ou to pay for the very basics like food, housing, medical care, and heating Not hard at all [facility] (I/We) worried whemahesh er (my/our) food would run out before (I/we) got money to buy more. Never true [facility] Gender identity Identifies as fe male gender (finding) [facility] In the past 12 month s, was there a time when you were not able to pay the mortgage or rent on time? No [facility] Start: 07-19-2017 [facility] Start: 01-16-2025 Sex Female (finding) [facility] Goals Date Patient Goal Desired Activity /State Personal health goal Comment on above: Formatting of this n ote might be different from the original. Due to patient not having resources to continue treatment from last plan of care in May 2016, will keep same goals and add to them from today's re-evaluation. 1.) 04/20/2017 Patient will be educated on and verbalize independent use of 2-3 external/internal compensatory strategies to improve functional memory skills in order to increase independence with higher level IADLs. GOAL PROGRESSING 06/22/2017 2.) 04/20/2017 Patient will be educated and trial 2 compensatory strategies for attention and concentration in order to improve reading comprehension. GOAL MET 06/22/2017 3.) 04/20/2017 Patient will independently demonstrate problem solving skills to initiate, plan, and develop strategies for organization skills needed for organization skills with meal preparation. GOAL PROGRESSING 06/22/2017 Patient reports she needs continued practice of strategies with meal prep. 4.) 04/20/2017 Patient will demonstrate a 10 point increase on FACT-COG in order to show a minimally clinical important difference for self-percieved quality of life. GOAL MET 06/22/2017 5.) 04/20/2017 Patient will demonstrate a 3 point increase in [place] Occupational Performance Measure for overall ratings for performance and satisfaction with reported occupational problems. GOAL PROGRESSING 06/22/2017 Will assess on 1 month follow up Personal health goal Comment on above: Formatting of this n ote might be different from the original. STG (to be achieved in 6 weeks) 1. Patient will be independent with exercise program in physical therapy gym to allow for safe transition into community exercise program as a component of cancer survivorship. LTG (to be achieved in 12 weeks) 1. Patient to obtain full shoulder flexion ROM in left shoulder from 158 to 165 improve ability to don/doff shirt and bra without difficulty. 11/19/2020 goal partially achieved; 162 flexion today at end of treatment. 156 at start 2. Patient to improve left shoulder abduction ROM from 148 to 160 to improve ability to wash hair without difficulty.11/19/2020 goal partially achieved; 153 today Comment on above: Formatting of this n ote might be different from the original. Due to patient not having resources to continue treatment from last plan of care in May 2016, will keep same goals and add to them from today's re-evaluation. 1.) 04/20/2017 Patient will be educated on and verbalize independent use of 2-3 external/internal compensatory strategies to improve functional memory skills in order to increase independence with higher level IADLs. GOAL PROGRESSING 06/22/2017 2.) 04/20/2017 Patient will be educated and trial 2 compensatory strategies for attention and concentration in order to improve reading comprehension. GOAL MET 06/22/2017 3.) 04/20/2017 Patient will independently demonstrate problem solving skills to initiate, plan, and develop strategies for organization skills needed for organization skills with meal preparation. GOAL PROGRESSING 06/22/2017 Patient reports she needs continued practice of strategies with meal prep. 4.) 04/20/2017 Patient will demonstrate a 10 point increase on FACT-COG in order to show a minimally clinical important difference for self-percieved quality of life. GOAL MET 06/22/2017 5.) 04/20/2017 Patient will demonstrate a 3 point increase in [place] Occupational Performance Measure for overall ratings for performance and satisfaction with reported occupational problems. GOAL PROGRESSING 06/22/2017 Will assess on 1 month follow up Comment on above: Formatting of this n ote might be different from the original. STG (to be achieved in 6 weeks) 1. Patient will be independent with exercise program in physical therapy gym to allow for safe transition into community exercise program as a component of cancer survivorship. LTG (to be achieved in 12 weeks) 1. Patient to obtain full shoulder flexion ROM in left shoulder from 158 to 165 improve ability to don/doff shirt and bra without difficulty. 11/19/2020 goal partially achieved; 162 flexion today at end of treatment. 156 at start 2. Patient to improve left shoulder abduction ROM from 148 to 160 to improve ability to wash hair without difficulty.11/19/2020 goal partially achieved; 153 today Clinical Notes 06-24-2021 to 10-17-2024 Robert Sosa APRN-ESAU - 10/17/2024 1:00 PM Henrique Lee RN - 10/17/2024 1:00 PM Henrique Seaman - 10/17/2024 12:20 PM Armando Ordaz MD - 10/03/2024 11:00 AM ESTPatient Instructions Note Date & Type Note Facility 10-17-2024 History of Presen t illness Narrative [id number] Milla Rock 10/17/2024 REFERRING/PRIMARY PROVIDER(S) Primary Care Provider: Yari Simmons [facility] History of Present Illness: Milla Rock is a 64 y.o. White female established patient who presents to the [facility] today for routine follow up. I have reviewed her pertinent PMH, PSH, ALL, SH, meds and FH and have updated the visit note as below. Chief Complaint Patient presents with Follow-up Annual follow up with mammogram. Denies breast changes or concerns She has a history of Left breast multifocal IDC------- TNBC (T2N2) diagnosed at age 51 yrs. There is [...] lymph node that was 2% ER positive, [place] negative, and negative for HER-2/dhara per outside pathology. She began neoadjuvant treatment on [facility]289 (gamma secretase inhibitor + Taxol/Carbo) on 11/09/11. [...] within the left axillary tissue. Breast reconstruction: No Neoadjuvant Chemotherapy: Yes The patient received preoperative neoadjuvant induction systemic chemotherapy on protocol [facility] 68347 (gamma secretase inhibitor + Taxol/Carbo) per Dr. Елена Gomes of [facility] breast medical oncology, with 6 cycles. Radiation Therapy: Yes She was enrolled in [place] clinical trial on 11/27/12. She completed [...] with recommendation for 6 month follow up. 09/11/19 6 month follow up of her Bi-RADS 3 imaging of the right breast, with a right breast US which were BI-RADS 3 and 12 month follow-up was recommended . She has had left axillary pain and left chest wall pain and cramping, which is chronic and flares up. She has recently been seeing PT here, which has helped with her pain. 09/15/20 6 month follow up with annual mammogram [...] times - this is not new overall. 10/06/22 +chronic discomfort along her central lateral aspect of her left modified radical mastectomy site and her left axillary region and her left lateral chest wall region - stable, no current arm swelling, edema, redness, but she is now interested in seeing PT 10/12/23 +chronic discomfort along her central lateral aspect of her left modified radical mastectomy site and her left axillary region and left lateral chest wall region. 10/17/24 interval update +persistent discomfort along her central lateral aspect of her left modified radical mastectomy site and her left axillary region and her left lateral chest wall region - stable. No current arm swelling, edema, redness. Sees PT as needed. She denies any lumps, nipple discharge, or [...] stools, blood in urine or focal weakness. Energy level: Poor - thinks r/t covid 6 weeks ago plus recent GI bug, also allergies Lymphedema: Yes; left-sided occasionally will wear compression sleeves. 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 She has seen the survivorship clinic, Dr. 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 Dr. Ordaz is managing this - stable. Also seeing therapist. Recent Hospitalizations: none Relevant Fitter'S Assistant History: Postmenopausal age 50 yrs with an intact uterus and ovaries. HRT: No. Fitter'S Assistant exams: Not regularly - saw Dr. Cannon in past Relevant PMH: Vit D def: Yes Only takes Vitamin D in winter BMD: 2019 in [place] - Osteopenia Graves disease sees endo in [place], [place] - medications are being changed around Migraine headaches stable Arthritis - stable C/o Low back pain: chronic, xrays with DJD 09/07/2018 - stable CANCER SURVEILLANCE: Date of first mammogram: Does not remember Breast MRI: Never Colonoscopy: - polyps - due in [id number] Skin cancer screen: Not regularly Eye exams: Annually Dental exams: Twice annually RISK FACTORS FOR BREAST CANCER: Age at the onset of menses: 11 yrs G 3 P: 3 Age at the of first child: 17 yrs She Breast fed: Yes Chest Irradiation: No Contraceptive use: OCP x 10 years Hx of infertility medication: no Postmenopausal obesity: Body mass index is 23.58 kg/m . Mammographic density: Heterogeneously dense Personal History of Benign Atypical Breast Biopsy: no Alcohol use: Social History Substance and Sexual Activity Alcohol Use Yes Alcohol/week: 2.0 standard drinks of alcohol Types: 2 Standard drinks or equivalent per week Comment: Usually one drink a day Tobacco use Social History Tobacco Use Smoking Status Former Current packs/day: 0.00 Types: Cigarettes Smokeless Tobacco Never Tobacco Comments quit teen years Caffeine intake: 2 cups daily Exercise: None currently - would like to restart yoga GENETICS: Ashkenazi Ancestry: No Genetic counseling: Yes Genetic testing: Underwent 91-gene panel test is called [employer] and was performed by [facility] 02/2023 and she does not have any pathogenic variants (mutations) in any of the genes on this panel Genes tested: AIP, ALK, APC, SHUBHAM, AXIN2, BAP1, BARD1, BLM, BMPR1A, BRCA1, BRCA2, BRIP1, CASR, CDC73, CDH1, CDK4, CDKN1B, CDKN2A, CFTR, CHEK2, CPA1, CTNNA1, CTRC, DICER1, EGFR, EGLN1, EPCAM, AZE877E, FANCC, FH, FLCN, GALNT12, GREM1, HOXB13, KIF1B, KIT, LZTR1, MAX, MEN1, MET, MITF, MLH1, MLH3, MRE11A, MSH2, MSH3, MSH6, MUTYH, NBN, NF1, NF2, NTHL1, PALB2, PALLD, PDGFRA, PHOX2B, PMS2, POLD1, POLE, POT1, LYZHW9V, PRSS1, PTCH1, PTEN, RAD50, RAD51C, RAD51D, RB1, RECQL, RET, RINT1, RPS20, SDHA, SDHAF2, SDHB, SDHC, SDHD, SMAD4, SMARCA4, SMARCB1, SMARCE1, SPINK1, STK11, SUFU, TERT, [id number], TP53, TSC1, TSC2, VHL, and XRCC2. FAMILY [...] Laterality: N/A; Surgeon: Faiza Torres MD; Location: [facility] ENDOSCOPY [place] EGD DIAGNOSTIC N/A 02/01/2014 Laterality: N/A; Surgeon: Katty Coello MD; Location: [facility] ENDOSCOPY COLONOSCOPY DIAGNOSTIC N/A 01/05/2013 Surgeon: Katty Ruelas MD; Location: [facility] ENDOSCOPY MASTECTOMY MODIFIED RADICAL 05/22/2012 Laterality: Left; Surgeon: Sukumar Pelletier MD;; Location: [facility] MAIN OR LYMPH NODE DISSECTION Left 05/22/12 No metastatic carcinoma present in 11 identified lymph nodes MASTECTOMY Left 05/22/12 Mammary tissue with tumor bed characterized by stromal CORE BIOPSY OF THE BREAST Left 10/21/11 IDC + Lymphoid tissue and metastatic high nuclear grade carcinoma NUC THERAPY ABLATION THYROID CA 2006 MEDICATIONS Current Outpatient Medications Medication Sig Aspirin 325 MG tablet Take 1 tablet by mouth as needed for Mild Pain. B Complex Vitamins (VITAMIN B COMPLEX PO) Take by mouth As directed. DULoxetine (Cymbalta) [address] Particles capsule DR Take 1 capsule by mouth daily. ergocalciferol 63336 UNITS Cap take 1 Cap by mouth once a week. Levocetirizine Dihydrochloride (XYZAL ALLERGY 24HR PO) Take by mouth. Liothyronine 5 MCG tablet Take by mouth daily. Takes 1/2 daily [START ON 12/10/2024] Methylphenidate 5 MG tablet Take 7.5mg in AM, 7.5mg at noon and 2.5 mg in afternoon [START ON 11/10/2024] Methylphenidate 5 MG tablet Take 7.5mg in [...] Only IMMUNIZATIONS Immunization History Administered Date(s) Administered 8970-1341 COVID-19 monovalent vaccine (Moderna), 12yr+, 100mcg/0.5mL 01/07/2021, 02/05/2021 influenza, injectable, quadrivalent 08/18/2017 SOCIAL HISTORY She reports that she has quit smoking. Her smoking use included cigarettes. She has never used smokeless tobacco. She reports current alcohol use of about 2.0 standard drinks of alcohol per week. She reports that she does not use drugs. PHYSICAL EXAMINATION: VITAL SIGNS: BP 126/70 (BP Location: Right arm, BP Position: Sitting) Pulse 76 Temp 97.3 F (36.3 C) (Oral) Wt 63.3 kg (139 lb 8 oz) BMI 23.58 kg/m Smoking Status Former ,Body mass index is 23.58 kg/m . GENERAL: Well nourished, well developed, [...] concerning, palpable masses. +mild tenderness to palpation There are no suspicious skin changes bilaterally. [...] Impression EXAM: MAMMO SCREENING WITH CHEPE RIGHT, 10/17/2024 12:39 PM CLINICAL INDICATIONS: Screening. Prior left mastectomy. COMPARISON: 10/12/2023, 10/06/2022, 09/28/2021, 09/15/2020 TECHNIQUE: 3-D MLO and CC digital tomosynthesis images were obtained of the right breast. Synthetic 2-D images were generated from the tomosynthesis data. Computer aided detection was utilized. FINDINGS: Breast Density: The breast is heterogeneously dense, which may obscure small masses. There are no suspicious masses, calcifications, or architectural distortions. IMPRESSION IMPRESSION: No mammographic evidence of malignancy. BI-RADS: 1: Negative Recommendation: Routine mammography. Recommendation Laterality: Right The current National Comprehensive Cancer Network and Canadian College of Radiology guidelines recommend women undergo a screening mammogram every year over the age of 40 and continue mammographic screening as long as they are in good health. Screening mammography under age 40 may occur for women who are at increased risk for breast cancer. [facility] Facility: [facility], [address] [place] [address], ESSION/PLAN: Milla Rock is a 64 y.o. female with h/o left breast TNBC, s/p left mastectomy/chemotherapy/radiatio n, and FH of breast cancer. There is no evidence of malignancy. The patient was reassured as to the benign nature of her clinical exam and right breast imaging. She was encouraged on SBA and to notify our office of any changes or concerns. History of Breast Cancer: Under observation. She has no clinical evidence of breast recurrence or new contralateral disease. Chronic left chest wall/axillary pain: She continues to see PT locally as needed. Genetics: Underwent 91-gene panel test is called [employer]+RNA and was performed by [facility] 02/2023 and she does not have any [...] visit. Return in about 1 year (around 10/17/2025) for to see Tila with mammo. Milla Rock was offered and declined a Medical Sales Process Manager for this exam/procedure/test 10/17/2024. documented in this encounter [facility] 10-17-2024 History of Presen t illness Narrative Patient offered a medical cattle and wheat farmer for sensitive exam. Pt declined documented in this encounter [facility] 10-03-2024 History of Presen t illness Narrative Follow up Note CC: follow-up Subjective: Patient here for follow-up of cognitive impairments related to cancer therapy as well as neuropathy. She has stable hands and feet neuropathy. The ritalin helps significantly with planning and carryover. No new side effects. She is taking Ritalin 7.5 mg, 7.5 [...] with significant AM hangover Last in-person visit: 10/05/2023 Contract signed: yes Recent Labs/Imaging/Procedures: 10/04/2023 urine tox - no unanticipated medications, Ritalin was not tested for. +alcohol, rare use Objective: GEN: NAD HEENT: EOMI Neuro: Alert and oriented. Mildly slowed processing speed. Moving all limbs spontaneously and at least anti-gravity throughout Lab Results Component Value Date ALT 13 [...] reviewed and is appropriate. 2. Continue Cymbalta 30 mg daily. Refilled today 3. UDS obtained today 4. Follow-up in 3 months by video Yazmin Ordaz MD Interventional Pain Physician [facility] Pain assessment/evaluation and pain score completed during this visit. UDT specimen kit supplied to pt along with education/instruction. UDT obtained, and sent to [facility]. UDT Testing Table CURRENT PAIN MEDICATIONS DOSE LAST DOSE Duloxetine 30mg daily 10/02/24 Methylphenidate 7.5mg morning, 7.5 afternoon, 2.5 late afternoon 10/03/24 AVS reviewed, prescriptions for symptom management sent e-script to patient's preferred pharmacy, and palliative care phone number and hours of operation reviewed at discharge. Patient escorted to check out to schedule next RTC appointment. documented in this encounter [facility] 10-12-2023 History of Presen t illness Narrative Milla Rock was offered and declined a Medical Sales Process Manager for this exam/procedure/test 10/12/2023. [id number] Milla Rock 10/18/2023 REFERRING/PRIMARY PROVIDER(S) Primary Care Provider: Yari Simmons Surgical oncology: [facility] Medical oncology: [facility]n History of Present Illness: Milla Rock is a 63 y.o. White female established patient who presents to the [facility] [place] today for routine follow [...] lymph node that was 2% ER positive, [place] negative, and negative for HER-2/dhara per outside pathology. She began neoadjuvant treatment on [facility] 46006 (gamma secretase inhibitor + Taxol/Carbo) on 11/09/11. [...] preoperative neoadjuvant induction systemic chemotherapy on protocol [facility] 75433 (gamma secretase inhibitor + Taxol/Carbo) per Dr. Елена Gomes of [facility] breast medical oncology, with 6 cycles. Radiation Therapy: Yes She was enrolled in [place] clinical trial on 11/27/12. She completed [...] Also seeing therapist. Recent Hospitalizations: none Relevant Fitter'S Assistant History: Postmenopausal age 50 yrs with an intact uterus and ovaries. HRT: No. Fitter'S Assistant exams: Not regularly - saw Dr. Cannon in past Relevant PMH: Vit D def: Yes Only takes Vitamin D in winter BMD: 2019 in [place] - Osteopenia Graves disease sees joshua in [place], [place] - medications are being changed around Migraine headaches stable Arthritis - stable C/o Low back pain: chronic, xrays with DJD 09/07/2018 - stable CANCER SURVEILLANCE: Date of first mammogram: Does not remember Breast MRI: Never Colonoscopy: - polyps - due in [id number] Skin cancer screen: Not regularly Eye exams: [...] testing: Underwent 91-gene panel test is called [employer]RNA and was performed by [facility] 02/2023 and she does not have any pathogenic variants (mutations) in any of the genes on this panel Genes tested: AIP, ALK, APC, SHUBHAM, AXIN2, BAP1, BARD1, BLM, BMPR1A, BRCA1, BRCA2, BRIP1, CASR, CDC73, CDH1, CDK4, CDKN1B, CDKN2A, CFTR, CHEK2, CPA1, CTNNA1, CTRC, DICER1, EGFR, EGLN1, EPCAM, SWP295W, FANCC, FH, FLCN, GALNT12, GREM1, HOXB13, KIF1B, KIT, LZTR1, MAX, MEN1, MET, MITF, MLH1, MLH3, MRE11A, MSH2, MSH3, MSH6, MUTYH, NBN, NF1, NF2, NTHL1, PALB2, PALLD, PDGFRA, PHOX2B, PMS2, POLD1, POLE, POT1, FIVGR9Z, PRSS1, PTCH1, PTEN, RAD50, RAD51C, RAD51D, RB1, RECQL, RET, RINT1, RPS20, SDHA, SDHAF2, SDHB, SDHC, SDHD, SMAD4, SMARCA4, SMARCB1, SMARCE1, SPINK1, STK11, SUFU, TERT, [id number], TP53, TSC1, TSC2, VHL, and XRCC2. FAMILY [...] Medical History: Diagnosis Date Arthritis Back pain 1992 Breast cancer 09/2011 left breast Cognitive changes [...] Laterality: Left; Surgeon: Sukumar Pelletier MD;; Location: [facility] MAIN OR LYMPH NODE DISSECTION Left 05/22/12 [...] Take 1 capsule by mouth daily. ergocalciferol 87496 UNITS Cap take 1 Cap by mouth [...] Only IMMUNIZATIONS Immunization History Administered Date(s) Administered [id number] COVID-19 monovalent vaccine (Moderna), 12yr+, 100mcg/0.5mL 01/07/2021, [...] The current National Comprehensive Cancer Network and Canadian College of Radiology guidelines recommend women undergo a screening mammogram every year over the age of 40 and continue mammographic screening as long as they are in good health. Screening mammography under age 40 may occur for women who are at increased risk for breast cancer. ESSION/PLAN: Milla Rock is a 63 y.o. female with h/o [...] Genetics: Underwent 91-gene panel test is called [employer] and was performed by [facility] 02/2023 and she does not have any [...] to PT. . documented in this encounter [facility] 10-12-2023 History of Presen t illness Narrative Patient offered a medical cattle and wheat farmer for sensitive exam. Pt declined documented in this encounter [facility] 10-05-2023 History of Presen t illness [...] video Yazmin Ordaz MD Interventional Pain Physician [facility] Pain assessment/evaluation and pain score completed during this visit. UDT specimen kit supplied to pt along with education/instruction. UDT obtained, labelled in front of the pt, and sent to [facility]. UDT Testing Table CURRENT PAIN MEDICATIONS DOSE LAST DOSE Duloxetine 30 10/04 Methyphendiate 5 10/05 Trazodone 50 10/04 documented in this encounter [facility] 02-22-2023 History of Presen t illness Narrative REASON FOR VISIT: Ms. Rock is a 62 year-old woman who presents for genetic risk assessment due to her personal diagnosis of triple negative breast cancer and her family history of breast cancer. She was interested in testing to clarify future cancer risks for herself and her family so they can be proactive in their care. Ms. Rock presented in September 2011, at age 51, with a left breast lump. A biopsy showed invasive ductal carcinoma that was triple negative. She was treated with neoadjuvant chemotherapy and had a left mastectomy on 05/22/12 with no evidence of residual disease and negative lymph nodes. She then completed treatment with adjuvant chemotherapy and radiation therapy. Ms. 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 FAMILY HISTORY A copy of Ms. Rock's pedigree will be made available under the [...] a brain tumor in his 50's-60's. Ashkenazi Denominational ancestry is denied. The diagnoses in the [...] family. IMPRESSION AND PLAN: Based upon Ms. Rock's personal and family history, she elected to pursue genetic testing of the BRCA1 and BRCA2 genes as part of a multi-gene panel. A blood sample was obtained and sent to [facility] for the [employer] Cancers panel plus RNA. We will contact her by telephone when her results are available. At that time, we will discuss specific management recommendations based on the test result. Counseling time spent with patient: 77 minutes; (76-105 minutes = 3 units) 11:23 AM - 12:40 PM documented in this encounter [facility] 12-08-2022 History of Presen t illness [...] video Yazmin Ordaz MD Interventional Pain Physician [facility] documented in this encounter [facility] 12-08-2022 Instructions Yazmin Ordaz MD - 12/08/2022 11:30 AM EST Follow-up in 3 months by video documented in this encounter [facility] 10-06-2022 History of Presen t illness Narrative NOTE: VERIFY NAME, , ADDRESS FOR CLIENT(UPDATE CATAPULT) Bra Prosthesis Note Milla Rock is being seen today at [facility] by Lauren Meyer for a Breast Issue. Her surgery was in 2011. Mastectomy: R__ L_X_ Bilateral __ Lumpectomy: R__ L__ Bilateral__ Reconstruction: Yes__ No _X_ Reconstruction removed Yes__ No__ Orders Orders: Orders reviewed __X__ Dx code _Z85.3 Req Rx from Robert Sosa Measurements Bra Band: 31 inches Fullest part of Bust: 38 inches Final band size: Large Final cup size: Large Prosthesis/Form: Size: 6 Additional Visit information Client Visit: pre/post op___ routine/annual__X_ refit___ reorder/no fitting___. Goals that were discussed with patient: Milla's weight fluctuates 30# or so concerning thyroid function. She's currently wearing a seamless sports type bra from [employer] which fastens in back, but has been wearing a medium with log haul operator. I suggested the Large and said it [...] INSTRUCTIONS - Y documented in this encounter [facility] 10-06-2022 History of Presen t illness Narrative Patient offered a medical cattle and wheat farmer for sensitive exam. Pt declined. documented in this encounter [facility] 06-24-2021 History of Presen t illness Narrative [facility] evaluation and pain score completed during this visit. UDT specimen kit supplied to pt along with education/instruction. UDT obtained, labelled in front of the pt, and sent to [facility]. AVS reviewed with patient and prescriptions for [...] now. She has been working on the [employer] at her new house. No new weakness or numbness. She is taking Ritalin 7.5 mg, 7.5 mg after lunch, and occasionally 2.5 mg late afternoon if she is going out or has errands to run. She did not tolerate the Cymbalta 30 mg daily so she is still taking 20 mg and is tolerating this well. Current/Previous Therapy: Has done COURT ADMINISTRATOR for cognitive rehab Completed PT with left [...] video Yazmin Ordaz MD Interventional Pain Physician [facility] documented in this encounter [facility] Evaluation note Diagnosis Chemotherapy-induced peripheral neuropathy- Primary Encephalopathy chronic Other encephalopathy Fatigue, unspecified type [facility] information [facility] Work Phone: Evaluation note* Diagnosis HX: breast cancer- Primary Personal history of malignant neoplasm of breast [facility] Diagnosis Personal history of breast cancer Personal history of malignant neoplasm of breast S/P left mastectomy Acquired absence of breast and nipple Encounter for screening mammogram for breast cancer documented [facility] Diagnosis Chemotherapy-induced peripheral neuropathy Fatigue, unspecified type [facility] Diagnosis Personal history of malignant neoplasm of breast- Primary [facility] Diagnosis Chemotherapy-induced peripheral neuropathy Fatigue, unspecified type Encephalopathy chronic Other encephalopathy [facility] Diagnosis Personal history of breast cancer Personal history of malignant neoplasm of breast S/P left mastectomy Acquired absence of breast and nipple [facility] Diagnosis Personal history of breast cancer- Primary Personal history of malignant neoplasm of breast S/P left mastectomy Acquired absence of breast and nipple Encounter for screening mammogram for malignant neoplasm of breast Other screening mammogram [facility] Diagnosis Encounter for therapeutic drug level monitoring- Primary Encounter for therapeutic drug monitoring Chemotherapy-induced peripheral neuropathy Fatigue, unspecified type [facility] Diagnosis Personal history of breast cancer- Primary Personal history of malignant neoplasm of breast Encounter for screening mammogram for malignant neoplasm of breast Other screening mammogram [facility] Diagnosis Personal history of breast cancer Personal history of malignant neoplasm of breast S/P left mastectomy Acquired absence of breast and nipple Encounter for screening mammogram for malignant neoplasm of breast Other screening mammogram [facility]ative)No reason for referral [facility]: Summary Purpose Family History No Family History Records FoundNo Family History Records FoundNo Family History Records FoundNo Family History Records FoundNo Family History Records Found Advance Directives No Advanced Directives Records Found Advance Directive Response Recorded Date/ Time Living Will Yes July 19, 2017 5:38pm Power of Pipe Line Maintenance Supervisor Yes July 5:38pm Advance Directive Response Recorded Date/ Time Living Will Yes July 19, 2017 4:38pm Power of Pipe Line Maintenance Supervisor Yes July 4:38pm Hospital Course Note Send Summary: Discharge [facility] Providers: Provider RoleProvider Name Mino Swann Tai-Chi Discharge: Summary: Admission Date: .08-Jun-2020 01:23:00 Discharge Date: 09-Jun-2020 Admission Reason: syncope Final Discharge Diagnoses: syncope Procedures: none Vital Signs: T PRBPSpO2 [id number]/5797% Date/Time06/09 3:008/10 3:008/10 3:008/10 3:008/10 3:00 Range(35.8C - 36.5C ) (65 - [...] Referral Specialty Diagnoses / Procedures Referred By Contac t Referred To Contact Diagnoses Personal history of breast cancer S/P left mastectomy Encounter for screening mammogram for breast cancer Procedures MAMMO SCREENING WITH CHEPE RIGHT Reina Rosario UG DESIGNER-DRAPERY EXAMINER [address] [place] [address] Referral ID Status Reason Start Date Expiration Date V isits Requested Visits Authorized [id number] Pending Review 09/28/2021 10/23/2022 1 1 Specialty Diagnoses / Procedures Referred By Contac t Referred To Contact Diagnoses Personal history of breast cancer S/P left mastectomy Procedures MAMMO SCREENING WITH CHEPE RIGHT Robert Sosa UG DESIGNER-DRAPERY EXAMINER [address] [facility] 3rd Floor, [address] [place], [place] [phone] Referral ID Status Reason Start Date Expiration Date V isits Requested Visits Authorized [id number] Pending Review 10/06/2022 10/31/2023 1 1 Specialty Diagnoses / Procedures Referred By Contac t Referred To Contact Diagnoses Personal history of breast cancer S/P left mastectomy Encounter for screening mammogram for malignant neoplasm of breast Procedures MAMMO SCREENING WITH CHEPE RIGHT Robert Sosa UG DESIGNER-DRAPERY EXAMINER [address] [facility] 3rd Floor, [address] [place] [phone] Referral ID Status Reason Start Date Expiration Date V isits Requested Visits Authorized [id number] New Request 10/12/2023 11/05/2024 1 1 Specialty Diagnoses / Procedures Referred By Contac t Referred To Contact Physical Therapy Diagnoses Personal history of breast cancer S/P left mastectomy Robert Sosa UG DESIGNER-DRAPERY EXAMINER [address] [facility] 3rd Floor, [address] [place] [address] Referral ID Status Reason Start Date Expiration Date V isits Requested Visits Authorized [id number] New Request 10/12/2023 11/05/2024 1 1 Specialty Diagnoses / Procedures Referred By Contac t Referred To Contact Diagnoses Personal history of breast cancer Encounter for screening mammogram for malignant neoplasm of breast Procedures MAMMO SCREENING WITH CHEPE RIGHT Robert Sosa UG DESIGNER-DRAPERY EXAMINER [address] [facility] 3rd Floor, [address] [place] [address] Referral ID Status Reason Start Date Expiration Date V isits Requested Visits Authorized [id number] New Request 10/17/2024 11/11/2025 1 1 Chief Complaint and Reason for Visit Chief Complaint SCREENING Additional Source Comments INFORMATION SOURCE (unrecogn ized section and content) DATE CREATED AUTHOR 01/10/2019 [facility] DATE CREATED AUTHOR AUTHOR'S ORGANIZ ATION 06/14/2020 [facility] DATE CREATED AUTHOR AUTHOR'S ORGANIZ ATION 01/19/2025 [facility] DATE CREATED AUTHOR AUTHOR'S ORGANIZ ATION 02/21/2025 [facility] DATE CREATED AUTHOR AUTHOR'S ORGANIZ ATION 03/27/2025 [facility] Reason for Visit (unrecogniz ed section and content) Reason Comments Follow-up Reason Comments Breast Problem Specialty Diagnoses / Procedures Referred By Contac t Referred To Contact Diagnoses Personal history of breast cancer S/P left mastectomy Encounter for screening mammogram for breast cancer Procedures MAMMO SCREENING WITH CHEPE RIGHT Reina Rosario APRN-DRAPERY EXAMINER [address] [place] [id number] Referral ID Status Reason Start Date Expiration Date V isits Requested Visits Authorized [id number] Pending Review 09/28/2021 10/23/2022 1 1 Reason Comments Pain Reason Comments Genetic Risk Assessment Personal history [facility]BC Specialty Diagnoses / Procedures Referred By Contac t Referred To Contact Genetics Diagnoses Personal history of breast cancer Robert Sosa UG DESIGNER-DRAPERY EXAMINER [address] [facility] 3rd Floor, [address] [place] [address] Referral ID Status Reason Start Date Expiration Date V isits Requested Visits Authorized [id number] New Request 10/06/2022 10/31/2023 1 1 Specialty Diagnoses / Procedures Referred By Contac t Referred To Contact Diagnoses Personal history of breast cancer S/P left mastectomy Procedures MAMMO SCREENING WITH CHEPE RIGHT Tila Sosasergio Childers UG DESIGNER-DRAPERY EXAMINER [address] [facility] 3rd Floor, [address] [place] [address] Referral ID Status Reason Start Date Expiration Date V isits Requested Visits Authorized [id number] Pending Review 10/06/2022 10/31/2023 1 1 Reason Comments Follow-up Pts states that she has tightness to left axillary area. Pt states that she has not been doing PT exercises that were recommended as frequently; rt chest, just above port incision w/some fullness and thickness. Reason Comments Follow-up Pain/neuropathy Reason Comments Follow-up Annual follow up wit h mammogram. Denies breast changes or concerns Specialty Diagnoses / Procedures Referred By Mary merrill Referred To Contact Diagnoses Personal history of breast cancer S/P left mastectomy Encounter for screening mammogram for malignant neoplasm of breast Procedures MAMMO SCREENING WITH CHEPE RIGHT Tila Sosasergio Childers, UG DESIGNER-DRAPERY EXAMINER [address] [facility] 3rd Floor, [address] [place] [address] Referral ID Status Reason Start Date Expiration Date V isits Requested Visits Authorized [id number] New Request 10/12/2023 11/05/2024 1 1 Care Teams (unrecognized sec tion and content) Sales Development Representative Relationship Specialty Start Date End Date Yari Simmons MD [address] [place] [address] PCP - General Internal Medicine 01/04/17 Aviva Katz MD [address] [address] [employer] LEAD 11/03/11 Juliette Dean, RN Registered Nurse Medical Oncology 07/17/12 Melissa Rodriguez MBBS Medical Oncology 04/09/16 Trang Thompson, PhD [address] [id number] Psychologist Psychology 06/08/17 Sales Development Representative Relationship Specialty Start Date End Date Yari Simmons MD [address] [place] [address] PCP - General Internal Medicine 01/04/17 Aviva Katz MD [address] [address] Obstetrics & Gynecology 11/03/11 Juliette Dean, RN Registered Nurse Medical Oncology 07/17/12 Melissa Rodriguez MBBS Medical Oncology 04/09/16 Trang Thompson, PhD [address] [address] Psychologist Psychology 06/08/17 Sales Development Representative Relationship Specialty Start Date End Date Yari Simmons MD [address] [place] [address] PCP - General Internal Medicine 01/04/17 Aviva Katz MD [address] [address] Obstetrics & Gynecology 11/03/11 Juliette Dean, RN Registered Nurse Medical Oncology 07/17/12 Melissa Rodriguez MBBS Medical Oncology 04/09/16 Trang Thompson, PhD [address] [phone] Psychologist Psychology 06/08/17 Sales Development Representative Relationship Specialty Start Date End Date Yari Simmons MD [address] [place] [address] PCP - General Internal Medicine 01/04/17 Aviva Katz MD [address] [address] Obstetrics & Gynecology 11/03/11 Juliette Dean, RN Registered Nurse Medical Oncology 07/17/12 Melissa Rodriguez MBBS Medical Oncology 04/09/16 Trang Thompson, PhD [address] [address] Psychologist Psychology 06/08/17 Team Status: Active Member Role Status Dates Dr. Tom Simmons MD Family Provider Active Dr. Tom Simmons MD Primary Care Provider Active Team Status: Inactive Member Role Status Dates Dr. Tom Simmons MD Primary Care Provider Active Dr. Josh Weinberg DO Attending Provider, Referring Provider Active Team Status: Inactive Member Role Status Dates Dr. Tom Simmons MD Primary Care Provider Active Tom Simmons MD Attending Provider Active Sales Development Representative Relationship Specialty Start Date End Date Yari Simmons MD [address] [facility] [address] [place] [address] PCP - General Internal Medicine 01/04/17 Aviva Katz MD [address] [address] Obstetrics & Gynecology 11/03/11 Juliette Dean RN Registered Nurse Medical Oncology 07/17/12 Melissa Rodriguez MBBS Medical Oncology 04/09/16 Trang Thompson, PhD [address] [address] Psychologist Psychology 06/08/17 Team Status: Active Member Role Status Dates Dr. Tom Simmons MD Primary Care Provider Active Dr. Josh Weinberg DO Attending Provider, Referring Provider Active Team Status: Inactive Member Role Status Dates Dr. Tom Simmons MD Primary Care Provider, Attending Provider Active Sales Development Representative Relationship Specialty Start Date End Date Yari Simmons MD [address] [place] [address] PCP - General Internal Medicine 01/04/17 Aviva Katz MD [address] [address] Obstetrics & Gynecology 11/03/11 Melissa Rodriguez MBBS [address] [address] Medical Oncology 04/09/16 Trang Thompson, PhD [address] [phone] Psychologist Psychology 06/08/17 Sales Development Representative Relationship Specialty Start Date End Date Yari Simmons MD [address] [place] [address] PCP - General Internal Medicine 01/04/17 Aviva Katz MD [address] [address] Obstetrics & Gynecology 11/03/11 Melissa Rodriguez MBBS [address] [address] Medical Oncology 04/09/16 Trang Thompson, PhD [address] [id number] Psychologist Psychology 06/08/17 Sales Development Representative Relationship Specialty Start Date End Date Yari Simmons MD [address] [place] [address] PCP - General Internal Medicine 01/04/17 Aviva Katz MD [address] [address] Obstetrics & Gynecology 11/03/11 Melissa Rodriguez MBBS [address] [address] Medical Oncology 04/09/16 Trang Thompson, PhD [address] [facility] 6th [address] [place] [phone] Psychologist Psychology 06/08/17 Team Status: Inactive Member Role Status Dates Dr. Tom Simmons MD Primary Care Provi trung, Attending Provider, Referring Provider Active Sales Development Representative Relationship Specialty Start Date End Date Yari Simmons MD [address] [place] [address] PCP - General Internal Medicine 01/04/17 Aviva Katz MD Obstetrics & Gynecology 11/03/11 Melissa Rodriguez MBBS Medical Oncology 04/09/16 Trang Thompson, PhD [address] [place] [address] Psychologist Psychology 06/08/17 Sales Development Representative Relationship Specialty Start Date End Date Yari Simmons MD [address] [place] [address] PCP - General Internal Medicine 01/04/17 Aviva Katz MD Obstetrics & Gynecology 11/03/11 Melissa Rodriguez MBBS Medical Oncology 04/09/16 Trang Thompson, PhD [address] [place] [address] Psychologist Psychology 06/08/17 Sales Development Representative Relationship Specialty Start Date End Date Yari Simmons MD [address] [place] [address] PCP - General Internal Medicine 01/04/17 Aviva Katz MD Obstetrics & Gynecology 11/03/11 Melissa Rodriguez MBBS Medical Oncology 04/09/16 Trang Thompson, PhD [address] [place] [address] Psychologist Psychology 06/08/17 Team Status: Inactive Member Role Status Dates Dr. Tom Simmons MD Primary Care Provider Active Start: January 08, 2025 End: January 08, 2025 Dr. Tom Simmons MD Attending Provider Active Start: January 08, 2025 End: January 08, 2025 Goals (unrecognized section and content) Goals may be documented in a n alternate sectionGoals may be documented in an alternate sectionGoals may be documented in an alternate sectionGoals may be documented in an alternate sectionGoals may be documented in an alternate sectionGoals may be documented in an alternate sectionGoals may be documented in an alternate sectionGoals may be documented in an alternate section FOR RECORDS PERTAINING TO PATIENTS WHO ARE [...] BE BASED ON THE PRIMARY CLINICAL RECORDS. [facility]. provides no warranty or guarantee of the accuracy or completeness of information in this document.
== END | disposition home or self-care (01) ==
LOC: RAD 15:55
PROVIDERS: PCP Family Medicine Geriatric Medicine; Referring Provider Family Medicine Geriatric Medicine; Visit Provider Family Medicine Geriatric Medicine
DX: R07.81 Pleurodynia (principal)
CPT/HCPCS: 71101

== ENCOUNTER → 2025-04-09 | Outpatient (CLI) | payer MEDICARE, SELFPAY ==
--- NOTE | 2025-04-09 12:03 | CT_ITS ---
PROCEDURE: CHEST WITHOUT CONTRAST 04/09/2025 REASON FOR EXAM: LUNG MASS Left upper lobe nodule. TECHNIQUE: Chest CT without contrast. Coronal and Sagittal reconstruction series were provided. One or more dose reduction techniques were used (e.g., Automated exposure control, adjustment of the mA and/or kV according to patient size, use of iterative reconstruction technique RADIATION DOSE SUMMARY: CTDlvol: 6.3 mGy DLP: 217.33 mGycm COMPARISON: Prior chest radiograph dated April 03, 2025. FINDINGS: Hardware: Surgical clips are seen in the left axilla. Prior left mastectomy. Lymph nodes: Tiny mediastinal lymph nodes. Calcified subcarinal lymph node. Heart and Vasculature: The heart is nonenlarged. Coronary Artery Calcifications: Absent Lungs and Airways: Increased markings are seen along the anterior aspect of the left upper lobe suggestive of post radiation fibrosis if the patient received radial therapy for left breast cancer. No pulmonary nodule is seen. Calcified granuloma in the right lower lobe. Pleura: No pleural effusion. Upper Abdomen: Scattered calcified splenic granulomas. Bones: Degenerative changes of the thoracic spine. CT/Chest without Contrast IMPRESSION: Coronary artery calcification (CAC) is is absent No left upper lobe pulmonary nodule is seen. 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 Reading Location: [place] [address]
== END | disposition home or self-care (01) ==
PROVIDERS: PCP Family Medicine Geriatric Medicine; Referring Provider Family Medicine Geriatric Medicine; Visit Provider Family Medicine Geriatric Medicine
DX: R91.8 Other nonspecific abnormal finding of lung field (principal)
CPT/HCPCS: 71250

== ENCOUNTER → 2025-07-11 | Outpatient (CLI) | payer MEDICARE, SELFPAY ==
[2025-07-11 13:49] LABS: Hematocrit 38.0 % (37-47); Hemoglobin 13.0 g/dL (12.0-15.0); Immature Granulocytes Count 0.010 X10^3/uL (0.0-0.0); Mean Corp Hgb Conc 34.2 g/dL (32-36); Mean Corpuscular Volume 90.9 fL (81-99); Mean Platelet Vol. 9.2 fl (6.2-12.0); NRBC Flagged by Analyzer 0 % (0-5); Platelet Count 310 K/mm3 (150-450); RBC Distribution Width CV 13.4 % (11.6-14.6); RBC Distribution Width SD 45.3 fl (35.1-43.9); Red Blood Count 4.18 M/mm3 (4.2-5.4); White Blood Count 5.3 K/mm3 (4.4-11.0)
[2025-07-11 14:24] LABS: BUN 9 mg/dL (4-19); Glucose 99 mg/dL (70-99)
[2025-07-11 14:25] LABS: AST(SGOT) 22 U/L (<=31); Alanine Aminotransfer ALT/SGPT 14 U/L (<=34); Albumin, Serum 4.3 g/dL (3.4-4.8); Alkaline Phosphatase 66 U/L (35-104); Anion Gap 12 (5-15); BUN/Creat Ratio 10.6 RATIO (10-20); Calcium,Total 9.5 mg/dL (7.6-11.0); Carbon Dioxide 22.6 mmol/L (21.0-32.0); Chloride 98 mmol/L (98-108); Globulin 3.5 g/dL (2.2-4.2); Potassium 3.9 mmol/L (3.3-5.1); Vitamin D,25 Hydroxy 51.4 ng/mL (30-100)
[2025-07-11 21:23] LABS: Xtra Tube Kwok EXTRA TUBE
== END | disposition home or self-care (01) ==
LOC: POLAB3 13:22
PROVIDERS: PCP Family Medicine Geriatric Medicine; Visit Provider Family Medicine Geriatric Medicine
DX: E55.9 Vitamin D deficiency, unspecified (principal); R53.83 Other fatigue
CPT/HCPCS: 36415; 80053; 82306; 84443; 85025